=== PATIENT | female | born 1935 | race Caucasian/White ===

== ENCOUNTER 2025-02-07 11:30 | Emergency (ER) | payer MEDICARE, OTHER, SELFPAY ==
--- OUTSIDE RECORDS SUMMARY | 2025-02-02 02:30 | XMS_ITS ---
Author Organization [facility] Address [address] [place] [id number] Care Team Providers Care Mold Clamper Name Role Phone DR. FLORIDA DANIELLE Primary Care Provider Lety Rey Unavailable [phone] REASON FOR VISIT LV, new pt Medications Medication SIG (Take, Route, Frequency, Duration) Notes Start Date End Date Status traMADol HCl 50 MG Tablet 1 tablet as ne eded Orally twice a day 01/30/2025 Active Encounters Encounter Location Date Provider Diagnosis [address] [address] 02/02/2025 FLORIDA DANIELLE Plan Of Treatment Next Appt Details Provider Name:FLORIDA DANIELLE, 02/07/2025 10:38:00 PM, [address], [address], Provider Name:Lety Rey , 02/09/2025 09:45:00 AM, [address] [place] [address], [id number], History and Physical Notes * HPI (History of Present Illness) Category Sub-Category Detail Notes Category Not es Transition of Care She is in bed, napping. No chest pain or shortness of breath. No edema on exam. Blood pressure is 124/68. Progress Notes * Charlene WALTONDOB:1935 (89 yo F)Acc No.[id number]:02/02/2025 Progress Notes Patient: Charlene Oviedo Provider: Stan Danielle DO :1935 A ge:89 Y S ex:Female Date:02/02/2025 Address:[address] [place], [place] [id number] Subjective: * Chief Complaints: * L V, new pt * HPI: T ransition of Care: She is in bed, napping. No chest pain or shortness of breath. No edema on exam. Blood pressure is 124/68. * Medications: T akingtraMADol HCl 50 MG Tablet 1 tablet as needed Orally twice a day Taking traMADol HCl 50 MG Tablet 1 tablet as needed Orally twice a day * Electronic signature of DR. FLORIDA DANIELLE D.O. on 02/07/2025 at 01:49 PM SEX THERAPIST Sign off status: Pending * Provider: Stan Danielle DO Date: 04/05/2024 Generated for Ellen mills/Nikole/Hammad on: 04/10/2024 01:49 PM SEX THERAPIST
--- NOTE | ~2025-02-07 | CT_ITS ---
EXAMINATION: CT brain wo con DATE: 02/07/2025 14:03 INDICATION: Possible seizure TECHNIQUE: Computed tomography (CT) of the head was performed without intravenous contrast. The dose-length product was 832.33 mGy-cm. COMPARISON: None FINDINGS: Exam limited by moderate amount of motion artifact. No gross intracranial mass effect or hemorrhage. No large acute ischemic event. Diffuse ventriculomegaly and chronic microvascular ischemic appearing white matter changes. Calvarial structures appear intact. IMPRESSION: 1. No large acute ischemic event, mass effect or bleed. 2. Chronic ischemic appearing changes with ventriculomegaly; query if patient has presentation suggestive of NPH. 3. For new onset or refractory seizure disorder, correlation with follow-up brain MRI recommended for optimal sensitivity. Reviewed, dictated and finalized at location A. LING ASSISTANT IMPRESSION: 1. No large acute ischemic event, mass effect or bleed. 2. Chronic ischemic appearing changes with ventriculomegaly; query if patient h as presentation suggestive of NPH. 3. For new onset or refractory seizure disorder, correlation with follow-up bra in MRI recommended for optimal sensitivity.
[2025-02-07 11:33] VITALS: BP 127/50; PULSE 63; RESP 18; TEMP 36.8; O2SAT 95
--- NOTE | 2025-02-07 13:35 | ECG_ITS ---
Test Date: 2025-02-07 13:48:36 Measurements Intervals [place] Rate: 73 P: 77 UT: 150 QRS: 63 QRSD: 74 T: 77 QT: 394 QTc: 437 Interpretive Statements SINUS RHYTHM WITH OCCASIONAL VENTRICULAR PREMATURE COMPLEXES BASELINE ARTIFACT- I, II, AVR, AVL, V1 BORDERLINE ECG No previous ECG available for comparison Electronically Signed On 02-07-2025 14:00:40 [place] by Surya Terrell D.O.
--- NOTE | 2025-02-07 13:39 | ED_ITS ---
HPI - General Adult General Chief complaint: Unspecified <Madelyn Talley APRN - Last Filed: 02/07/25 13:40> Stated complaint: SHAKING EPISODE <Madelyn Talley APRN - Last Filed: 02/07/25 13:40> Time Seen by Provider: 02/07/25 13:39 <Madelyn Talley APRN - Last Filed: 02/07/25 13:40> Focused HPI: Patient is an 89-year-old female who presents to the ER with concern for seizure activity. She is unable to provide any medical history at time of examination. Per EMS, patient is A&O times 0 at baseline. She denies any pain at time of examination. GENERAL: Well-appearing, well-nourished, and in no acute distress. HEAD: Normocephalic, atraumatic. CHEST: Clear to auscultation. ?No respiratory distress. HEART: Regular rate and rhythm.? NEURO: ?Alert and oriented x 0. Moves all extremities. Patient screened in triage and initial orders placed.? ?Additional care and disposition to be based upon?diagnostic testing and treatment. 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 Patient has been staying at [facility]. Family states that they did not want the patient to have a shunt placed. Patient is a DNI DNR. They do confirm that patient is at her normal baseline. <Lizandro Bustamante MD - Last Filed: 02/07/25 18:25> Related Data Allergies/adverse reactions: Allergies Allergy/AdvReac Type Severity Reaction Status Date / Time No Known Allergies Allergy Verified 02/07/25 11:31 <Madelyn Talley APRN - Last Filed: 02/07/25 13:40> Review of Systems 2 Review of Systems: All systems reviewed & are unremarkable except as noted in HPI and below <Lizandro Bustamante MD - Last Filed: 02/07/25 18:25> Exam 2 Narrative: APPEARANCE: No distress HEAD: normocephalic, atraumatic. EYES: PERRLA/EOMI, conjunctivae clear. NOSE: Normal no drainage EARS:TMS clear with good light reflex. THROAT: Pharynx clear, no exudate. NECK: Supple. No adenopathy, no masses. RESPIRATORY: Airway patent, respirations nonlabored. Clear to auscultation bilaterally, no rales, rhonchi, wheezing. CARDIOVASCULAR: Regular rate and rhythm without murmurs rubs or gallops. ABDOMINAL: Soft, nontender, nondistended, normal bowel sounds MUSCULOSKELETAL: Moves all extremities. Strength/ROM intact, No edema, No calf tenderness. NEURO: Alert. Cranial nerves II through XII intact. Good gait. Good coordination SKIN: Warm, dry. Normal Color <Lizandro Bustamante MD - Last Filed: 02/07/25 18:25> Course Vital Signs Vital signs: Vital Signs Temperature 98.3 F 02/07/25 11:33 Pulse Rate 63 02/07/25 11:33 Respiratory Rate 18 02/07/25 11:33 Blood Pressure 127/50 L 02/07/25 11:33 Pulse Oximetry 95 02/07/25 11:33 Oxygen Delivery Room Air 02/07/25 11:33 Temperature 98.3 F 02/07/25 11:33 Pulse Rate 65 02/07/25 17:31 Respiratory Rate 17 02/07/25 17:31 Blood Pressure 122/57 L 02/07/25 17:31 Pulse Oximetry 98 02/07/25 17:31 Oxygen Delivery Room Air 02/07/25 15:55 <Madelyn Talley APRN - Last Filed: 02/07/25 13:40> Vital Signs Temperature 98.3 F 02/07/25 11:33 Pulse Rate 63 02/07/25 11:33 Respiratory Rate 18 02/07/25 11:33 Blood Pressure 127/50 L 02/07/25 11:33 Pulse Oximetry 95 02/07/25 11:33 Oxygen Delivery Room Air 02/07/25 11:33 Temperature 98.3 F 02/07/25 11:33 Pulse Rate 65 02/07/25 17:31 Respiratory Rate 17 02/07/25 17:31 Blood Pressure 122/57 L 02/07/25 17:31 Pulse Oximetry 98 02/07/25 17:31 Oxygen Delivery Room Air 02/07/25 15:55 <Lizandro Bustamante MD - Last Filed: 02/07/25 18:25> [facility] Narrative Medical decision making narrative: 89-year-old female presents emergency department for evaluation for possible seizure-like activity that was very short lasting. Patient is back to her normal baseline at this time. Patient was thought to have seizures previously due to normal pressure hydrocephalus. Patient is currently afebrile with no leukocytosis and a stable hemoglobin. Patient is INR of 1.0. No acute abnormalities on her CMP UA does show evidence of infection. Patient was treated with Rocephin in the emergency department patient was discharged home with Keflex. I did have a lengthy discussion regarding potential treatment for this patient and family does not want to pursue transfer to [facility] regarding potential shunt placement. They do prefer to have outpatient follow- up at [facility]. <Lizandro Bustamante MD - Last Filed: 02/07/25 18:25> Differential Diagnosis Differential Diagnosis: Normal pressure hydrocephalus,, seizure, UTI, subdural hematoma, subarachnoid hemorrhage <Lizandro Bustamante MD - Last Filed: 02/07/25 18:25> Lab Data [facility] Lab Attestation statement: I personally reviewed the patient's lab results. <Lizandro Bustamante MD - Last Filed: 02/07/25 18:25> Result diagrams: 02/07/25 13:47 02/07/25 13:47 <Madelyn Talley APRN - Last Filed: 02/07/25 13:40> Labs: Lab Results 02/07/25 02/07/25 02/07/25 Range/Units 13:47 13:47 15:42 WBC 6.7 (4.5-10.0) K/mm3 RBC 4.00 L (4.2-5.4) M/mm3 Hgb 12.3 (12.0-15.0) g/dL Hct 38.2 (37.0-47.0) % MCV 95.5 (80-100) fl MCH 30.8 (26-34) pg MCHC 32.2 (32-36) g/dl RDW 11.9 (11.5-14.5) % Plt Count 504 H (150-375) k/mm3 MPV 8.5 (7.4-10.4) fl Immature Gran % (Auto) 0.6 H (0-0.5) % Neut % (Auto) 80.1 H (45.5-73.1) % Lymph % (Auto) 8.9 L (18.3-44.2) % [place] % (Auto) 9.0 H (2.6-8.5) % Eos % (Auto) 0.5 (0-4.4) % Baso % (Auto) 0.9 (0.2-1.2) % Lymph # (Auto) 0.59 L (0.9-3.2) K/mm3 [place] # (Auto) 0.6 (0.1-0.6) K/mm3 Eos # (Auto) 0.0 (0-0.3) K/mm3 Baso # (Auto) 0.1 (0.0-0.1) K/mm3 Abs Immat Gran (auto) 0.04 H (0.00-0.031) K/mm3 Absolute Neuts (auto) 5.3 (1.3-6.7) K/mm3 Absolute Nucleated RBC 0.000 (0.0-0.012) K/mm3 Nucleated RBC % 0.0 (0.0-0.2) % PT 13.0 (11.1-14.7) Seconds INR 1.0 APTT 28.8 (22.3-36.8) Seconds Sodium 132 L (137-145) mmol/L Potassium 4.2 (3.4-5.0) mmol/L Chloride 98 (98-107) mmol/L Carbon Dioxide 30 (22-30) mmol/L Anion Gap 4 (4-12) mmol/L BUN 19 H (7-17) mg/dL Creatinine 0.81 (0.7-1.0) mg/dL Estim Creat Clear Calc Not Reportable Estimated GFR > 60 (59 - ) Glucose 114 H (65-110) mg/dL Lactic Acid 1.0 (0.7-2.0) mmol/L Calcium 9.2 (8.4-10.2) mg/dL Magnesium 1.7 Cancelled (1.6-2.3) mg/dL Total Bilirubin 0.4 (0.2-1.3) mg/dL AST 35 (14-36) U/L ALT 40 H (6-35) U/L Alkaline Phosphatase 61 (38-126) U/L Total Creatine Kinase 27 L (30-135) U/L Total Protein 6.7 (6.3-8.2) g/dL Albumin 3.6 (3.5-5.1) g/dL Urine Color (Yellow) Urine Appearance (Clear) Urine pH (5.0-9.0) Ur Specific [place] (1.001-1.035) Urine Protein (Negative) mg/dL Urine Glucose (UA) (Negative) mg/dL Urine Ketones (Negative) mg/dL Ur Blood (Man) (Negative) Urine Nitrate (Negative) Urine Bilirubin (Negative) Urine Urobilinogen (<2.0) mg/dL Leukocyte Esterase Rfl (Negative) PADMAJA/UL Urine RBC (0-2) /hpf Urine WBC (0-3) /hpf Ur Squamous Epith Cells (Few) /hpf Urine Bacteria /hpf Urine Casts 12/17/ Range/Units 16:27 WBC (4.5-10.0) K/mm3 RBC (4.2-5.4) M/mm3 Hgb (12.0-15.0) g/dL Hct (37.0-47.0) % MCV (80-100) fl MCH (26-34) pg MCHC (32-36) g/dl RDW (11.5-14.5) % Plt Count (150-375) k/mm3 MPV (7.4-10.4) fl Immature Gran % (Auto) (0-0.5) % Neut % (Auto) (45.5-73.1) % Lymph % (Auto) (18.3-44.2) % [place] % (Auto) (2.6-8.5) % Eos % (Auto) (0-4.4) % Baso % (Auto) (0.2-1.2) % Lymph # (Auto) (0.9-3.2) K/mm3 [place] # (Auto) (0.1-0.6) K/mm3 Eos # (Auto) (0-0.3) K/mm3 Baso # (Auto) (0.0-0.1) K/mm3 Abs Immat Gran (auto) (0.00-0.031) K/mm3 Absolute Neuts (auto) (1.3-6.7) K/mm3 Absolute Nucleated RBC (0.0-0.012) K/mm3 Nucleated RBC % (0.0-0.2) % PT (11.1-14.7) Seconds INR APTT (22.3-36.8) Seconds Sodium (137-145) mmol/L Potassium (3.4-5.0) mmol/L Chloride (98-107) mmol/L Carbon Dioxide (22-30) mmol/L Anion Gap (4-12) mmol/L BUN (7-17) mg/dL Creatinine (0.7-1.0) mg/dL Estim Creat Clear Calc Estimated GFR (59 - ) Glucose (65-110) mg/dL Lactic Acid (0.7-2.0) mmol/L Calcium (8.4-10.2) mg/dL Magnesium (1.6-2.3) mg/dL Total Bilirubin (0.2-1.3) mg/dL AST (14-36) U/L ALT (6-35) U/L Alkaline Phosphatase (38-126) U/L Total Creatine Kinase (30-135) U/L Total Protein (6.3-8.2) g/dL Albumin (3.5-5.1) g/dL Urine Color Yellow (Yellow) Urine Appearance Turbid H (Clear) Urine pH 5.5 (5.0-9.0) Ur Specific [place] 1.021 (1.001-1.035) Urine Protein 1+ H (Negative) mg/dL Urine Glucose (UA) Negative (Negative) mg/dL Urine Ketones Trace H (Negative) mg/dL Ur Blood (Man) Non-hemolyzed trace H (Negative) Urine Nitrate Positive H (Negative) Urine Bilirubin Negative (Negative) Urine Urobilinogen 1.0 (<2.0) mg/dL Leukocyte Esterase Rfl 3+ H (Negative) PADMAJA/UL Urine RBC 0-2 (0-2) /hpf Urine WBC >100 H (0-3) /hpf Ur Squamous Epith Cells None seen (Few) /hpf Urine Bacteria 4+ H /hpf Urine Casts 3-5 <Madelyn Talley, RHIT - Last Filed: 02/07/25 13:40> Lab Results 02/07/25 02/07/25 02/07/25 Range/Units 13:47 13:47 15:42 WBC 6.7 (4.5-10.0) K/mm3 RBC 4.00 L (4.2-5.4) M/mm3 Hgb 12.3 (12.0-15.0) g/dL Hct 38.2 (37.0-47.0) % MCV 95.5 (80-100) fl MCH 30.8 (26-34) pg MCHC 32.2 (32-36) g/dl RDW 11.9 (11.5-14.5) % Plt Count 504 H (150-375) k/mm3 MPV 8.5 (7.4-10.4) fl Immature Gran % (Auto) 0.6 H (0-0.5) % Neut % (Auto) 80.1 H (45.5-73.1) % Lymph % (Auto) 8.9 L (18.3-44.2) % [place] % (Auto) 9.0 H (2.6-8.5) % Eos % (Auto) 0.5 (0-4.4) % Baso % (Auto) 0.9 (0.2-1.2) % Lymph # (Auto) 0.59 L (0.9-3.2) K/mm3 [place] # (Auto) 0.6 (0.1-0.6) K/mm3 Eos # (Auto) 0.0 (0-0.3) K/mm3 Baso # (Auto) 0.1 (0.0-0.1) K/mm3 Abs Immat Gran (auto) 0.04 H (0.00-0.031) K/mm3 Absolute Neuts (auto) 5.3 (1.3-6.7) K/mm3 Absolute Nucleated RBC 0.000 (0.0-0.012) K/mm3 Nucleated RBC % 0.0 (0.0-0.2) % PT 13.0 (11.1-14.7) Seconds INR 1.0 APTT 28.8 (22.3-36.8) Seconds Sodium 132 L (137-145) mmol/L Potassium 4.2 (3.4-5.0) mmol/L Chloride 98 (98-107) mmol/L Carbon Dioxide 30 (22-30) mmol/L Anion Gap 4 (4-12) mmol/L BUN 19 H (7-17) mg/dL Creatinine 0.81 (0.7-1.0) mg/dL Estim Creat Clear Calc Not Reportable Estimated GFR > 60 (59 - ) Glucose 114 H (65-110) mg/dL Lactic Acid 1.0 (0.7-2.0) mmol/L Calcium 9.2 (8.4-10.2) mg/dL Magnesium 1.7 Cancelled (1.6-2.3) mg/dL Total Bilirubin 0.4 (0.2-1.3) mg/dL AST 35 (14-36) U/L ALT 40 H (6-35) U/L Alkaline Phosphatase 61 (38-126) U/L Total Creatine Kinase 27 L (30-135) U/L Total Protein 6.7 (6.3-8.2) g/dL Albumin 3.6 (3.5-5.1) g/dL Urine Color (Yellow) Urine Appearance (Clear) Urine pH (5.0-9.0) Ur Specific [place] (1.001-1.035) Urine Protein (Negative) mg/dL Urine Glucose (UA) (Negative) mg/dL Urine Ketones (Negative) mg/dL Ur Blood (Man) (Negative) Urine Nitrate (Negative) Urine Bilirubin (Negative) Urine Urobilinogen (<2.0) mg/dL Leukocyte Esterase Rfl (Negative) PADMAJA/UL Urine RBC (0-2) /hpf Urine WBC (0-3) /hpf Ur Squamous Epith Cells (Few) /hpf Urine Bacteria /hpf Urine Casts /17/ Range/Units 16:27 WBC (4.5-10.0) K/mm3 RBC (4.2-5.4) M/mm3 Hgb (12.0-15.0) g/dL Hct (37.0-47.0) % MCV (80-100) fl MCH (26-34) pg MCHC (32-36) g/dl RDW (11.5-14.5) % Plt Count (150-375) k/mm3 MPV (7.4-10.4) fl Immature Gran % (Auto) (0-0.5) % Neut % (Auto) (45.5-73.1) % Lymph % (Auto) (18.3-44.2) % [place] % (Auto) (2.6-8.5) % Eos % (Auto) (0-4.4) % Baso % (Auto) (0.2-1.2) % Lymph # (Auto) (0.9-3.2) K/mm3 [place] # (Auto) (0.1-0.6) K/mm3 Eos # (Auto) (0-0.3) K/mm3 Baso # (Auto) (0.0-0.1) K/mm3 Abs Immat Gran (auto) (0.00-0.031) K/mm3 Absolute Neuts (auto) (1.3-6.7) K/mm3 Absolute Nucleated RBC (0.0-0.012) K/mm3 Nucleated RBC % (0.0-0.2) % PT (11.1-14.7) Seconds INR APTT (22.3-36.8) Seconds Sodium (137-145) mmol/L Potassium (3.4-5.0) mmol/L Chloride (98-107) mmol/L Carbon Dioxide (22-30) mmol/L Anion Gap (4-12) mmol/L BUN (7-17) mg/dL Creatinine (0.7-1.0) mg/dL Estim Creat Clear Calc Estimated GFR (59 - ) Glucose (65-110) mg/dL Lactic Acid (0.7-2.0) mmol/L Calcium (8.4-10.2) mg/dL Magnesium (1.6-2.3) mg/dL Total Bilirubin (0.2-1.3) mg/dL AST (14-36) U/L ALT (6-35) U/L Alkaline Phosphatase (38-126) U/L Total Creatine Kinase (30-135) U/L Total Protein (6.3-8.2) g/dL Albumin (3.5-5.1) g/dL Urine Color Yellow (Yellow) Urine Appearance Turbid H (Clear) Urine pH 5.5 (5.0-9.0) Ur Specific [place] 1.021 (1.001-1.035) Urine Protein 1+ H (Negative) mg/dL Urine Glucose (UA) Negative (Negative) mg/dL Urine Ketones Trace H (Negative) mg/dL Ur Blood (Man) Non-hemolyzed trace H (Negative) Urine Nitrate Positive H (Negative) Urine Bilirubin Negative (Negative) Urine Urobilinogen 1.0 (<2.0) mg/dL Leukocyte Esterase Rfl 3+ H (Negative) PADMAJA/UL Urine RBC 0-2 (0-2) /hpf Urine WBC >100 H (0-3) /hpf Ur Squamous Epith Cells None seen (Few) /hpf Urine Bacteria 4+ H /hpf Urine Casts 3-5 <Lizandro Bustamante MD - Last Filed: 02/07/25 18:25> Imaging Data Radiologist's impression: ITS Impressions Head CT 02/07/25 14:08 IMPRESSION: 1. No large acute ischemic event, mass effect or bleed. 2. Chronic ischemic appearing changes with ventriculomegaly; query if patient has presentation suggestive of NPH. 3. For new onset or refractory seizure disorder, correlation with follow-up brain MRI recommended for optimal sensitivity. <Madelyn Talley APRN - Last Filed: 02/07/25 13:40> ITS Impressions Head CT 02/07/25 14:08 IMPRESSION: 1. No large acute ischemic event, mass effect or bleed. 2. Chronic ischemic appearing changes with ventriculomegaly; query if patient has presentation suggestive of NPH. 3. For new onset or refractory seizure disorder, correlation with follow-up brain MRI recommended for optimal sensitivity. <Lizandro Bustamante MD - Last Filed: 02/07/25 18:25> Discharge Plan Discharge Clinical Impression: Urinary tract infection <Madelyn Talley APRN - Last Filed: 02/07/25 13:40> Patient Disposition: [facility] Retirement/Asst Living <Madelyn Talley APRN - Last Filed: 02/07/25 13:40> Condition: Stable <Madelyn Talley APRN - Last Filed: 02/07/25 13:40> Instructions: Antibiotic Form, Urinary Tract Infection in Older Adults (ED) <Madelyn Talley APRN - Last Filed: 02/07/25 13:40> Additional Instructions: Have close follow-up with your physicians as outpatient. Antibiotics as directed for the urinary tract infection. If you have any worsening symptoms then please call or return to the emergency department. <Madelyn Talley APRN - Last Filed: 02/07/25 13:40> Patient Language: Upper Sorbian <Madelyn Talley APRN - Last Filed: 02/07/25 13:40> Prescriptions: New cephalexin 500 mg capsule 500 mg PO Q8H 7 Days Qty: 21 0RF <Madelyn Talley APRN - Last Filed: 02/07/25 13:40> Follow-up/Referrals: Jerald,Sergio Baird MD [Primary Care Provider] <Madelyn Talley APRN - Last Filed: 02/07/25 13:40>
--- OUTSIDE RECORDS SUMMARY | 2025-02-07 13:50 | XMS_ITS | Encounter Summary ---
Author Organization [facility] Healthcare Address [address] [place] [address] Care Team Providers Care Cosmetologist Name Role Phone Sergio Marques MD Primary Care Provider Consuelo Oh RN Unavailable [phone] Encounter Details Date Type Department Care Team (Late st Contact Info) Description 08/18/2019 Telephone [facility] [address] [place] [address] Branden Jamison, RT Social History Tobacco Use Types Packs/Day Years Used Date Smoking Tobacco: Never Smokeless Tobacco: Never Alcohol Use Standard Drinks/Week Comments No 0 (1 standard drink = 0.6 oz pur e alcohol) PHQ-2 Answer Date Recorded PHQ-2 Total Score (If total score is 3 or more points, staff should administer the PHQ-9) 0 06/19/2019 Comments No Sex and Gender Information Value Date Recorded Sex Assigned at Not on file 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 As a result, this patient falls under our standard 'ring surveillance' screening protocol to ensure no transmission has occurred. Please contact Franca Mendoza [facility], [facility] [place] for additional information. Patient Discharged 11/0711/07/2024 11/07/2024 11/08/2024 1:22 PM CDT documented as of this encounter Care Teams Cosmetologist Relationship Specialty Start Date End Date Sergio Marques MD PCP - General 05/22/16 Consuelo Oh, RN [address] [place] [address] [place] [address] Bar Tacker 11/06/21 12/04/21 documented as of this encounter
--- OUTSIDE RECORDS SUMMARY | 2025-02-07 13:50 | XMS_ITS | Encounter Summary ---
Author Organization [facility] Address [address] [place] [address] Phone Care Team Providers Care Plate And Weld Inspector Name Role Phone Sergio Marques MD Primary Care Provider Consuelo Oh RN Unavailable [phone] Encounter Details Date Type Department Care Team (Late st Contact Info) Description 05/26/2017 Orders Only [facility] ProviderLaurel MD [address] [place] [id number] Social History Tobacco Use Types Packs/Day Years Used Date Smoking Tobacco: Never Alcohol Use Standard Drinks/Week Comments No 0 (1 standard drink = 0.6 oz pur e alcohol) Comments Unknown Sex and Gender Information Value Date Recorded Sex Assigned at Not on file 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 Historical Provider LAB BLOOD ORDERABLES Julianne l Result documented in this encounter Visit Diagnoses Not on filedocumented [...] has occurred. Please contact Franca Mendoza MPH, [facility] Drop Wire Operator for additional information. Patient Discharged 11/0711/07/2024 11/07/2024 11/08/2024 1:22 PM CDT documented as of this encounter Care Teams Plate And Weld Inspector Relationship Specialty Start Date End Date Sergio Marques MD PCP - General 05/22/16 Consuelo hO RN [address] [place] [address] [place] [address] Wood Piler 11/06/21 12/04/21 documented as of this encounter
--- OUTSIDE RECORDS SUMMARY | 2025-02-07 13:50 | XMS_ITS | Patient Health Record ---
Author Organization [facility] Address [address] [place] [phone] Care Team Providers Care Fur Mixer Name Role Phone DR. FLORIDA LANGSTON Primary Care Provider Lety Rey Unavailable [phone] Allergies Allergen (clinical drug ingredient) Drug/Non Drug Allergy documented on EMR Reaction Allergy Type Onset Date Status Wasp Venom Unknown Drug Allergy Active Reason For Referral No Information Medications Medication SIG (Take, Route, Frequency, Duration) Notes Start Date End Date Status Levothyroxine Sodium 75 MCG Tablet 1 tablet in the morning on an empty stomach Orally Once a day Active PreserVision AREDS - Capsule 4,296 mcg-226 mg-90 mg Orally once a day Active Clopidogrel Bisulfate 75 MG Tablet 1 tablet Orally Once a day Active Donepezil HCl 10 MG Tablet 1 tablet at b edtime Orally Once a day Active traMADol HCl 50 MG Tablet 1 tablet as needed Orally every 6 hours As needed 01/30/2025 Active QUEtiapine Fumarate 25 MG Tablet 1 tablet at bedtime Orally Once a day Active Super B/C - Capsule as directed Orally o nce a day Active Tubersol 5 UNIT/0.1ML Solution 5 unit Intradermal once a day Active Atorvastatin Calcium 40 MG Tablet 1 tablet Orally Once a day Active Cetirizine HCl 10 MG Tablet 1 tablet Ora lly Once a day Active Vitamin D3 25 MCG (1000 UT) Tablet 1 tablet Orally Once a day Active amLODIPine Besylate 5 MG Tablet 1 tablet Orally Once a day Active Aspirin 325 MG Tablet 1 tablet Orally On ce a day Active Social History Tobacco Use: Social History Observation Description Date Details (start date - stop date) Never Smoker NA - NA Social History Drug/Alcohol: Social Info Question Answer Notes Drugs Have you used drugs other than those for medical reasons in the past 12 months? No AUDIT-C (Standard) Did you have a drink containing alcohol in the past year? No Points 0 Interpretation Negative Tobacco Use: Social Info Question Answer Notes Tobacco Control (Standard) Tobacco use: Nonsmoker Problems Problem Type SNOMED Code ICD Code Onset Dates Problem Status W/U Status Risk Notes Problem Hypothyroidism (68285326) Hypothyroidism, unspecified (E03.9) Active confirmed Problem Vitamin D deficiency (55803253) Vitamin D deficiency, unspecified (E55.9) Active confirmed Problem Vitamin deficiency (25965129) Vitamin deficiency, unspecified (E56.9) Active confirmed Problem Hyperlipidemia (64229851) Hyperlipidemia, unspecified (E78.5) Active confirmed Problem Essential hypertension (86031265) Essential (primary) hypertension (I10) Active confirmed Problem Infarction - precerebral (795565653) 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 Problem Dementia in other diseases classified elsewhere, mild, with mood disturbance (F02.A3) Active confirmed Vital Signs Heart Rate 82 /min 02/01/2025 Temperature 98.1 degrees Fahrenheit 02/01/2025 Respiratory Rate 16 /min 02/01/2025 Oximetry 97 % 02/01/2025 Blood pressure diastolic 64 mm Hg 02/01/2025 Blood pressure systolic 116 mm Hg 02/01/2025 Encounters Encounter Location Date Provider Diagnosis [address] [address] 02/02/[address] [address] 02/07/2025 Lety Candido [address] [address] 02/01/2025 Lety Rey Cerebral infarction due to embolism of unspecified precerebral artery I63.10 ; Physical deconditioning R53.81 ; Dementia in other diseases classified elsewhere, mild, with mood disturbance F02.A3 ; Essential (primary) hypertension I10 and Bilateral lower extremity edema R60.[address] [address] 01/29/[address] [address] 01/29/2025 [place] [address] [place] [id number] 01/30/2025 Lety Rey [facility] [address] [place] [id number] 02/01/2025 Lety Rey Assessments Encounter Date Diagnosis (ICD Code) Assessment Notes Treatment Notes Treatment Clinical Notes Section Notes 02/01/2025 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 Workup showed she had a right-sided stroke. Her left upper extremity is slightly weaker than her right upper extremity. Continue to monitor patient. _update with any changes. 02/01/2025 Physical deconditioning (ICD-10 - R53.81) Patient is working with PT/OT for strengthening and mobility. 02/01/2025 Dementia in other diseases classified elsewhere, mild, with mood disturbance (ICD-10 - F02.A3) Alert and oriented x1, pleasantly confused at baseline, but able to make needs known. No outburst or behaviors noted by staff. Managed well on current medications. Continue current treatment plan and monitoring. 02/01/2025 Essential (primary) hypertension (ICD-10 - I10) Blood pressure is stable. Managed well on current medications. Continue current treatment plan and monitoring. 02/01/2025 Bilateral lower extremity edema (ICD-10 - R60.0) Patient has 2+ edema noted to the bilateral lower extremities. Order given for compression stockings to be placed in the AM and removed in the PM. Educated patient to elevate legs as much as possible, but due to patient's mental status, unsure if she will remember. 02/01/2025 Other Patient with multiple chronic conditions, each requiring ongoing management and coordination of care. Reviewed and interpreted most recent laboratory results available, diagnostic studies, and prior specialist notes. Staff to continue to monitor and report any changes. Patient education provided and questions/concern s addressed. Close follow-up required; reassess in 2-4 weeks or sooner if condition worsens. Plan Of Treatment Next Appt Details Provider Name:FLORIDA LANGSTON, 02/07/2025 10:38:00 PM, [address] [place] [address], [id number], Provider Name:Lety Rey , 02/09/2025 09:45:00 AM, [address], [place], [address], Insurance Providers Payer Name Payer Address Payer Phone Subscriber Number Group Number Insured Name Patient Relationship to Insured Coverage Start Date Coverage End Date [employer] [address] [place] [phone] [id number] Charlene Fontana Self - patient is the insured [employer] [place] [address] [facility] [place] [id number] FontanaCharlene Self - patient is the insured Medical (General) History Medical History History ICD Code Cerebral infarction due to embolism of u nspecified precerebral artery I63.10 Dementia in other diseases classified el sewhere, mild, with mood disturbance F02.A3 Pain, unspecified R52 Vitamin deficiency, unspecified E56.9 Hyperlipidemia, unspecified E78.5 Essential (primary) hypertension I10 Hypothyroidism, unspecified E03.9 Vitamin D deficiency, unspecified E55.9 Fall, subsequent encounter W19.XXXD Surgical History Surgery Date(Month/Year) [place] FLUORO GUIDED LUMBAR PUNCTURE
--- OUTSIDE RECORDS SUMMARY | 2025-02-07 13:50 | XMS_ITS | Clinical Summary ---
Author Organization [facility] Address [address] [place] [address] Care Team Providers Care Cage Unloader Name Role Phone Florida Marques MD Primary Care Provider Allergies Active Allergy Reactions Criticality Noted Date Comments Venom-Wasp Medications cholecalcifero l, vitamin D3, (VITAMIN D3 ORAL) Take 1 capsule by mouth daily Active vitamin B complex vit C no.4 (SUPER B COMPLEX + C ORAL) Take 1 tablet by mouth daily Active vit A/vit C/vit E/zinc/copper (PRESERVISION AREDS ORAL) Take 1 capsule by mouth daily Active donepeziL (ARICEPT) 10 mg tablet Take 1 tablet (10 mg total) by mouth nightly For memory note higher dose 90 tablet 3 01/25/20 24 Active cetirizine (ZyrTEC) 10 mg tablet TAKE 1 TABLET BY MOUTH DAILY 90 tablet 1 07/01/19 25 Active QUEtiapine (SEROquel) 25 mg tablet TAKE 1 TABLET(25 MG) BY MOUTH EVERY NIGHT 100 tablet 1 08/20/19 25 Active levothyroxine (SYNTHROID) 75 mcg tablet TAKE 1 TABLET BY MOUTH DAILY 90 tablet 1 10/03/19 25 Active amLODIPine (NORVASC) 5 mg tablet Take 1 tablet (5 mg total) by mouth daily 30 tablet 11 01/26/20 25 026 Active aspirin 325 mg tabletIndicati ons:cerebral ischemia,Cereb ral Ischemia Take 1 tablet (325 mg total) by mouth daily 30 tablet 11 01/26/20 25 026 Active atorvastatin (LIPITOR) 40 mg tablet Take 1 tablet (40 mg total) by mouth daily 30 tablet 11 01/26/20 25 026 Active clopidogreL (PLAVIX) 75 mg tablet Take 1 tablet (75 mg total) by mouth daily 30 tablet 11 01/26/20 25 026 Active traMADoL (ULTRAM) 50 mg tablet Take 1 tablet (50 mg total) by mouth every 6 (six) hours as needed for pain 40 tablet 3 01/25/20 25 Active aspirin 81 mg enteric coated tablet Take 1 tablet (81 mg total) by mouth daily 025 Discontinued(St op Taking at Discharge) lisinopriL (PRINIVIL,ZEST RIL) 10 mg tablet TAKE 1 TABLET(10 MG) BY MOUTH DAILY 100 tablet 1 02/12/20 24 025 Discontinued(St op Taking at Discharge) traMADoL (ULTRAM) 50 mg tablet Take 1 tablet (50 mg total) by mouth every 6 (six) hours as needed for pain 40 tablet 3 12/20/19 25 025 Discontinued Active Problems Problem Noted Date Diagnosed Date 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 01/21/2025 Loss of consciousness 11/03/2024 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 11/03/2024 Dementia with behavioral disturbance 07/20/2023 Assessment & Plan (12/01/2024 5:31 PM CDT): Protein-calorie malnutrition, unspecified severi ty 07/20/2023 Alzheimer's disease with late onset (CODE) 07/03 Assessment & Plan (12/01/2024 5:31 PM CDT): Hyperlipidemia 06/08/2022 PVC (premature ventricular contraction) 12/12/19 22 Syncope and collapse 11/02/2021 Medicare annual wellness visit, subsequent 06/27 Hypertension 07/08/2013 Overview (05/27/2016): BENIGN HYPERTENSION 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 Overview (05/29/2016): IDIOPATHIC OSTEOPOROSIS Assessment & Plan (12/01/2024 5:31 PM CDT): Hypothyroidism 07/08/2013 Overview (05/29/2016): HYPOTHYROIDISM NOS Atopic rhinitis 05/19/2011 Overview (05/29/2016): ALLERGIC RHINITIS NOS Encounters Date Type Department Care Team Description 01/25/2025 7:48 AM BEHAVIORAL SPECIALIST - 01/25/2025 11:59 PM BEHAVIORAL SPECIALIST Hospital Encounter [facility] Emergency, Room R Discharge Disposition: Discharge to home or self care 01/22/2025 Orders Only [facility] Health Information Management [address] [place] [id number] Scanning, Provider 01/21/2025 7:36 AM BEHAVIORAL SPECIALIST - 01/25/2025 7:29 AM BEHAVIORAL SPECIALIST Hospital Encounter [facility] [address] [place] [address] Diogenes Sullivan MD Kheirkhahan, Nazanin, MD Hoelscher, John Arthur, MD Nikolic, Jelena, MD Cerebrovascular accident (CVA) due to embolism of precerebral artery (HCC) (Primary Dx); Traumatic rhabdomyolysis, initial encounter Discharge Disposition: Discharge to SNF 01/21/2025 7:20 AM BEHAVIORAL SPECIALIST - 01/21/2025 11:59 PM BEHAVIORAL SPECIALIST Hospital Encounter [facility] Emergency, Room R Discharge Disposition: Discharge to home or self care 01/12/2025 Telephone [facility] Primary Care at [address] [place] [phone] Florida Marques MD 12/25/2024 9:30 AM BEHAVIORAL SPECIALIST Office Visit [facility] [address] [address] [address] [place] [address] Zeeshan Crowell MD NPH (normal pressure hydrocephalus) [G91.2] (Primary Dx) 12/19/2024 Orders Only [facility] Primary Care at [address] [place] [phone] Florida Marques MD 12/19/2024 Telephone [facility] Primary Care at [address] [phone] Florida Marques MD 12/14/2024 Orders Only [facility] Primary Care at [address] [phone] Florida Marques MD 12/14/2024 Telephone [facility] Primary Care at [address] [phone] Florida Marques MD 12/13/2024 Telephone [facility] [address] [address] [address] [place] [address] Lianne Augustine 12/12/2024 Telephone [facility] Primary Care at [address] [phone] Florida Marques MD 12/01/2024 3:00 PM CDT Office Visit [facility] Primary Care at [address] [phone] Florida Marques MD Alzheimer's disease with late onset (CODE) (Primary Dx); BMI less than 19,adult; Dementia with behavioral disturbance (HCC); Idiopathic osteoporosis; Normal pressure hydrocephalus (HCC) 12/01/2024 Telephone [facility] Primary Care at [address] [phone] Florida Marques MD 12/01/2024 Orders Only [facility] Primary Care at [address] [phone] Florida Marques MD 11/27/2024 Telephone [facility] Primary Care at [address] [phone] Florida Marques MD Medical Question/Miscellaneous 11/10/2024 Results Follow-Up [facility] Primary Care at [address] [phone] Florida Marques MD Alzheimer s disease evaluation, CSF, Multiple sclerosis (MS) profile with reflex to oligoclonal bands, CSF/serum, FLUID MISC TO [place], Additional followed-up results: 3 from Last 3 Months Immunizations Immunization Administration Dates Next Due Hep B Vaccine 02/18/1998,09/18/1991,08/18/1991 Influenza, Unspecified 12/01/2024(Deferr ed: Patient Refused),08/03/2024(Deferred: Patient Refused),01/25/2024(Deferred: Patient Refused),11/23/2022(Deferred: Patient Refused),07/03/2022(Deferred: Patient Refused),04/22/2021(Deferred: Patient Refused),11/22/2018(Deferred: Patient Refused),06/13/2018(Deferred: Patient Refused) Pneumococcal Conjugate, Unspecified 11/11/2021(D eferred: Patient Refused) Td, adsorbed 05/02/1990 Surgical History Surgery Date Site/Laterality Comments [place] FLUORO GUIDED LUMBAR PUNCTURE 11/07/2024 Right Medical History Medical History Date Comments Hx Other Medical obgyn Hyperlipidemia Hyperlipidemia Atopic rhinitis allergic rhiniti s Hx Other Medical Dizziness Family History Medical History Relation Name Comments Liver cancer Father 2 Cancer -liver; Age: Lung cancer Mother 2 Cancer -lung; Age: 92 Other Mother 2 high blood pres sure; Relation Name Status Comments Father 1 Alive Father 2 Mother 1 Alive Mother 2 Social History Tobacco Use Types Packs/Day Years Used Date Smoking Tobacco: Never Smokeless Tobacco: Never Tobacco Cessation:Counseling Given: Not Answered Alcohol Use Standard Drinks/Week Comments No 0 (1 standard drink = 0.6 oz pur e alcohol) Social Connection and Isolation Panel Answer Date Recorded In a typical week, how many times do you talk on the phone with family, friends, or neighbors? More than three times a week 11/06/2021 How often do you get togethe r with friends or relatives? Three times a week 11/06/2021 How often do you attend chur ch or adventist services? More than 4 times per year 11/06/2021 Do you belong to any clubs o r organizations such as judaism groups, unions, fraternal or athletic groups, or school groups? Yes 11/06/2021 How often do you attend meet ings of the clubs or organizations you belong to? More than 4 times per year 11/06/2021 Are you , , di vorced, , never , or living with a partner? 11/06/2021 AUDIT-C Answer Date Recorded Q1: How often do you have a drink containing alcohol? Never 07/20/2023 Q2: How many drinks containi ng alcohol do you have on a typical day when you are drinking? Patient does not drink Frequency of Binge Drinking Not on file 06/23 Overall Financial Resource Strain (CARDIA) Answe r Date Recorded How hard is it for you to pa y for the very basics like food, housing, medical care, and heating? Not very hard 11/06/2021 PHQ-2 Answer Date Recorded PHQ-2 Total Score (If total score is 3 or more points, staff should administer the PHQ-9) 0 12/01/2024 PRAPARE - Transportation Answer Date Re corded In the past 12 months, has l ack of transportation kept you from medical appointments or from getting medications? No 10/23 In the past 12 months, has l ack of transportation kept you from meetings, work, or from getting things needed for daily living? No 11/06/2021 Housing Stability Vital Sign Answer Reji e Recorded In the last 12 months, was t here a time when you were not able to pay the mortgage or rent on time? No 11/06/2021 In the last 12 months, how many places have you lived? 1 11/06/2021 In the last 12 months, was t here a time when you did not have a steady place to sleep or slept in a snf (including now)? No 11/06/2021 Social Connection and Isolation Panel Answer Date Recorded In a typical week, how many times do you talk on the phone with family, friends, or neighbors? More than three times a week 01/22/2025 How often do you get togethe r with friends or relatives? More than three times a week 01/22/2025 How often do you attend chur ch or adventist services? More than 4 times per year 01/22/2025 Do you belong to any clubs o r organizations such as judaism groups, unions, fraternal or athletic groups, or school groups? Yes 01/22/2025 How often do you attend meet ings of the clubs or organizations you belong to? More than 4 times per year 01/22/2025 Are you , , di vorced, , never , or living with a partner? 01/22/2025 Overall Financial Resource Strain (CARDIA) Answe r Date Recorded How hard is it for you to pa y for the very basics like food, housing, medical care, and heating? Not very hard 01/22/2025 Hunger Vital Sign Answer Date Recorded Within the past 12 months, y ou worried that your food would run out before you got the money to buy more. Never true 01/23/20 25 Within the past 12 months, t he food you bought just didn't last and you didn't have money to get more. Never true 01/22/2025 PRAPARE - Transportation Answer Date Re corded In the past 12 months, has l ack of transportation kept you from medical appointments or from getting medications? No 02/2024 In the past 12 months, has l ack of transportation kept you from meetings, work, or from getting things needed for daily living? No 01/22/2025 Housing Stability Vital Sign Answer Reji e Recorded In the last 12 months, was t here a time when you were not able to pay the mortgage or rent on time? No 01/22/2025 In the past 12 months, how m any times have you moved where you were living? 0 01/22/2025 At any time in the past 12 m [facility], were you homeless or living in a snf (including now)? No 01/22/2025 [facility] Utilities Answer Date Recorded In the past 12 months has th e electric, gas, oil, or water company threatened to shut off services in your home? No 01/22/2025 Personal Safety Answer Date Recorded Have you ever been in or are you currently in a harmful physical or emotional relationship or is someone making you feel afraid or unsafe? Denies 01/21/2025 Comments No Sex and Gender Information Value Date Recorded Sex Assigned at Not on file Legal Sex Female 11:53 PM BEHAVIORAL SPECIALIST Gender Identity Not on file Sexual Orientation Not on file Obstetrics History Para Term AB IAB SAB Ectopic Multiple Livin g Live Births 3 3 3 Date Outcome GA Total Labor Labor/2nd/3rd Weight Sex Type Anes PTL Michelle A1 A5 Name Clin Term Term Term Last Filed Vital Signs Vital Sign Reading Time Taken Comments Blood Pressure 135/53 01/25/2025 7:24 AM BEHAVIORAL SPECIALIST Pulse 76 01/25/2025 7:24 AM BEHAVIORAL SPECIALIST Temperature 36.4 C (97.6 F) 01/25/2025 7:24 AM BEHAVIORAL SPECIALIST Respiratory Rate 18 01/25/2025 7:24 AM BEHAVIORAL SPECIALIST Oxygen Saturation 91% 01/25/2025 7:24 AM BEHAVIORAL SPECIALIST Inhaled Oxygen Concentration - - Weight 47.6 kg (104 lb 15 oz) 01/21/2025 1:34 PM BEHAVIORAL SPECIALIST Height 162.6 cm (5' 4.02) 01/21/2025 1:34 PM CS T Body Mass Index 18 01/21/2025 1:34 PM BEHAVIORAL SPECIALIST Plan of Treatment Health Maintenance Due Date Last Done Comments Zoster Vaccine (1 of 2) 1986 Osteoporosis Screening-Bone Density Scan 07/13/2018 07/13/2016 Colon Cancer Screening-Colonoscopy 12/26/2019 12/25/2014, 12/25/2014, 12/25/2014, Additional history exists Breast Cancer Screening-Mammogram 08/20/2020 08/21/2019, 06/13/2018, 06/07/2017, Additional history exists Influenza Vaccine (#1) 2024 Well Visit 65+ 08/03/2025 08/03/2024, 06/23, 07/03/2022, Additional history exists Covid-19 Vaccine ( season) 2025 11/22/2020, 10/25/2020 Postponed from 10/23/2024 (Patient declined, but will receive in the future) Depression Screening 12/01/2025 12/01/2024, 08/03/2024, 01/25/2024, Additional history exists Fall Risk Assessment 01/24/2026 01/24/2025, 12/01/2024, 08/03/2024, Additional history exists DTaP/Tdap/Td Vaccine (1 - Tdap) 09/30/2027 05/02/1990 Postponed from 05/03/1990 (Insurance / Financial) Hepatitis B Screening Completed 02/18/1998 , 09/18/1991, 08/18/1991 Colon Cancer Screening-CT Colonography Discontinued 12/25/2014, 12/25/2014, 12/25/2014, Additional history exists Colon Cancer Screening-DNA Stool Discontinued 12/25/2014, 12/25/2014, 12/25/2014, Additional history exists Colon Cancer Screening-FIT Discontinued 12/25, 12/25/2014, 12/25/2014, Additional history exists Colon Cancer Screening-Sigmoidoscopy Discontinued 12/25/2014, 12/25/2014, 12/25/2014, Additional history exists Pneumococcal vaccine 65+ Discontinued Procedures Procedure Name Priority Date/Time Associated Diagnosis Comments EGFR Routine 01/25/2025 2:29 AM BEHAVIORAL SPECIALIST BASIC METABOLIC PANEL Routine 01/25/2025 2:29 AM BEHAVIORAL SPECIALIST EGFR Routine 01/24/2025 2:24 AM BEHAVIORAL SPECIALIST BASIC METABOLIC PANEL Routine 01/24/2025 2:24 AM BEHAVIORAL SPECIALIST EGFR Routine 01/23/2025 2:25 AM BEHAVIORAL SPECIALIST BASIC METABOLIC PANEL Routine 01/23/2025 2:25 AM BEHAVIORAL SPECIALIST MRI BRAIN WO CONTRAST IP Routine 01/22/2025 12:31 PM BEHAVIORAL SPECIALIST US CAROTIDS DUPLEX BILATERAL IP Routine 01/22/2025 11:38 AM BEHAVIORAL SPECIALIST TRANSTHORACIC ECHO (TTE) COMPLETE W DOPPLER/CF WO CONTRAST W BUBBLE Routine 01/22/2025 10:20 AM BEHAVIORAL SPECIALIST ECG 12-LEAD Routine 01/22/2025 6:24 AM BEHAVIORAL SPECIALIST LIPID PANEL Routine 01/22/2025 2:33 AM BEHAVIORAL SPECIALIST HEMOGLOBIN A1C Routine 01/22/2025 2:33 AM BEHAVIORAL SPECIALIST SCAN - LABS 01/22/2025 TROPONIN T HIGH-SENSITIVITY 6-HOUR Timed 01/21/2025 2:10 PM BEHAVIORAL SPECIALIST TROPONIN T HIGH-SENSITIVITY 4-HR Timed 01/21/2025 11:56 AM BEHAVIORAL SPECIALIST TROPONIN T HIGH-SENSITIVITY 2-HOUR Timed 01/21/2025 11:00 AM BEHAVIORAL SPECIALIST SEPSIS LACTATE WITH REFLEX Timed 01/21/2025 11:00 AM BEHAVIORAL SPECIALIST URINALYSIS, MICROSCOPIC ONLY STAT 01/21/2025 10:13 AM BEHAVIORAL SPECIALIST URINALYSIS AND REFLEX TO MICROSCOPIC AND CULTURE STAT 01/21/2025 10:13 AM BEHAVIORAL SPECIALIST XR CHEST 1 VIEW ED 01/21/2025 8:[address] CERVICAL SPINE WO CONTRAST ED 01/21/2025 8:[address] HEAD WO CONTRAST ED 01/21/2025 8 :19 AM BEHAVIORAL SPECIALIST EGFR STAT 01/21/2025 7:50 AM BEHAVIORAL SPECIALIST DIFFERENTIAL AUTO STAT 01/21/2025 7:5 0 AM BEHAVIORAL SPECIALIST PROTIME-INR STAT 01/21/2025 7:50 AM BEHAVIORAL SPECIALIST CREATINE KINASE (CK), TOTAL STAT 01/21/2025 7:50 AM BEHAVIORAL SPECIALIST SEPSIS LACTATE WITH REFLEX STAT 01/21/2025 7:50 AM BEHAVIORAL SPECIALIST TROPONIN T HIGH-SENSITIVITY SERIES (BASELINE, 2HR, 4HR, 6HR) Routine 01/21/2025 7:50 AM BEHAVIORAL SPECIALIST PRO B-TYPE NATRIURETIC PEPTIDE STAT 01/21/2025 7:50 AM BEHAVIORAL SPECIALIST MAGNESIUM Routine 01/21/2025 7:50 AM BEHAVIORAL SPECIALIST APTT STAT 01/21/2025 7:50 AM BEHAVIORAL SPECIALIST COMPREHENSIVE METABOLIC PANEL STAT 01/21/2025 7:50 AM BEHAVIORAL SPECIALIST CBC WITH AUTO DIFFERENTIAL STAT 01/21/2025 7:50 AM BEHAVIORAL SPECIALIST ECG 12-LEAD STAT 01/21/2025 7:44 AM BEHAVIORAL SPECIALIST SCREENING MAMMOGRAM BILATERAL W CUONG Schedule Routine, Read Routine (OP Routine) 08/21/2019 9:30 AM CDT Screening mammogram, encounter for HM DEXA SCAN Routine 07/13/2016 COLONOSCOPY IMAGES 12/25/2014 from Last 3 Months or Most Recently Relevant to Health Maintenance Results * eGFR (01/25/2025 2:29 AM BEHAVIORAL SPECIALIST) eGFR 82 >=60 mL/min/1. 73 m2 Comment: Interpretive Data Reference Interval Normal >/= 90 mL/min/1.73m2 Mildly decreased* 60 - 89 mL/min/1.73m2 Mildly to moderately decreased 45 - 59 mL/min/1.73m2 Moderately to severely decreased 30 - 44 mL/min/1.73m2 Severely decreased 15 - 29 mL/min/1.73m2 Kidney Failure < 15 mL/min/1.73m2 *Relative to young adult level Estimated glomerular filtration rate is determined by the 2020 CKD-EPI equation recommended by the National Kidney Foundation (A Unifying Approach to GFR Estimation: Recommendations of the NKF-ASK Task Force on Reassessing the Inclusion of Race in Diagnosing Kidney Disease, JASN 2020). The CKD-EPI equation should not be used for patients with unstable renal function and has not been validated in children and those over 70. Current interpretive data was last reviewed 2020. Blood 01/25/2025 2:29 AM BEHAVIORAL SPECIALIST 01/25/2025 3:10 AM BEHAVIORAL SPECIALIST us Florida Marques MD LAB BLOOD ORDERABLES Fi nal Result JOSSE LOPEZ) 1 [facility] Department [place] [address] * Basic metabolic panel (01/25/2025 2:29 AM BEHAVIORAL SPECIALIST) [facility] Sodium 135 135 - 145 mmol/L Potassium, pl 4.1 3.3 - 4.9 mmol/L [facility] ([place]) Chloride 104 97 - 110 mmol/L [facility] ([place]) CO2 24 22 - 32 mmol/L [facility] ([place]) Anion gap 7 2 - 15 mmol/L [facility] ([place]) BUN 14 6 - 25 mg/dL [facility] ([place]) Creatinine 0.71 0.60 - 1.10 mg/dL [facility] ([place]) Glucose 94 70 - 199 mg/dL [facility] ([place]) Comment: Interpretive Data Fasting glucose >/= 126 mg/dl is diagnostic for diabetes. Fasting is defined as no caloric intake for at least 8 hours. Fasting glucose between 100 mg/dl to 125 mg/dl is diagnostic of prediabetes. In a patient with classic symptoms of hyperglycemia or hyperglycemic crisis, a random glucose >/= 200 mg/dl is diagnostic for diabetes. In the absence of unequivocal hyperglycemia, results should be confirmed by repeat testing. The classification and Diagnosis of Diabetes Diabetes Care 202; 46: S19-S40. Current interpretive data was last revised 2022. Calcium 8.5 8.5 - 10.3 mg/dL [facility] ([place]) Blood 01/25/2025 2:29 AM BEHAVIORAL SPECIALIST 01/25/2025 3:10 AM BEHAVIORAL SPECIALIST us Florida Marques MD LAB BLOOD ORDERABLES Fi nal Result [facility] PATTERSON ([place]) 1 [facility] Department [place] [address] * eGFR (01/24/2025 2:24 AM BEHAVIORAL SPECIALIST) [facility] eGFR 86 >=60 mL/min/1. 73 m2 Comment: Interpretive Data Reference Interval Normal >/= 90 mL/min/1.73m2 Mildly decreased* 60 - 89 mL/min/1.73m2 Mildly to moderately decreased 45 - 59 mL/min/1.73m2 Moderately to severely decreased 30 - 44 mL/min/1.73m2 Severely decreased 15 - 29 mL/min/1.73m2 Kidney Failure < 15 mL/min/1.73m2 *Relative to young adult level Estimated glomerular filtration rate is determined by the 2020 CKD-EPI equation recommended by the National Kidney Foundation (A Unifying Approach to GFR Estimation: Recommendations of the NKF-ASK Task Force on Reassessing the Inclusion of Race in Diagnosing Kidney Disease, JASN 2020). The CKD-EPI equation should not be used for patients with unstable renal function and has not been validated in children and those over 70. Current interpretive data was last reviewed 2020. Blood 01/24/2025 2:24 AM BEHAVIORAL SPECIALIST 01/24/2025 3:44 AM BEHAVIORAL SPECIALIST us Florida Marques MD LAB BLOOD ORDERABLES nal Result [facility] ([place]) 1 [facility] Department [place] [address] * (ABNORMAL) Basic metabolic panel (01/24/2025 2:24 AM BEHAVIORAL SPECIALIST) Sodium 136 135 - 145 mmol/L Potassium, pl 3.8 3.3 - 4.9 mmol/L [facility] ([place]) Chloride 105 97 - 110 mmol/L [facility] ([place]) CO2 21(L) 22 - 32 mmol/L [facility] ([place]) Anion gap 10 2 - 15 mmol/L [facility] ([place]) BUN 12 6 - 25 mg/dL [facility] ([place]) Creatinine 0.62 0.60 - 1.10 mg/dL [facility] ([place]) Glucose 95 70 - 199 mg/dL [facility] ([place]) Comment: Interpretive Data Fasting glucose >/= 126 mg/dl is diagnostic for diabetes. Fasting is defined as no caloric intake for at least 8 hours. Fasting glucose between 100 mg/dl to 125 mg/dl is diagnostic of prediabetes. In a patient with classic symptoms of hyperglycemia or hyperglycemic crisis, a random glucose >/= 200 mg/dl is diagnostic for diabetes. In the absence of unequivocal hyperglycemia, results should be confirmed by repeat testing. The classification and Diagnosis of Diabetes Diabetes Care 202; 46: S19-S40. Current interpretive data was last revised 2022. Calcium 8.2(L) 8.5 - 10.3 mg/dL [facility] ([place]) Blood 01/24/2025 2:24 AM BEHAVIORAL SPECIALIST 01/24/2025 3:44 AM BEHAVIORAL SPECIALIST Florida Marques MD LAB BLOOD ORDERABLES Fi nal Result Performing Organization Address City/[facility]/ZIP Co de Phone Number JOSSE PATTERSON ([place]) 1 [facility] [place] [address] * eGFR (01/23/2025 2:25 AM BEHAVIORAL SPECIALIST) eGFR 83 >=60 mL/min/1. 73 m2 Comment: Interpretive Data Reference Interval Normal >/= 90 mL/min/1.73m2 Mildly decreased* 60 - 89 mL/min/1.73m2 Mildly to moderately decreased 45 - 59 mL/min/1.73m2 Moderately to severely decreased 30 - 44 mL/min/1.73m2 Severely decreased 15 - 29 mL/min/1.73m2 Kidney Failure < 15 mL/min/1.73m2 *Relative to young adult level Estimated glomerular filtration rate is determined by the 2020 CKD-EPI equation recommended by the National Kidney Foundation (A Unifying Approach to GFR Estimation: Recommendations of the NKF-ASK Task Force on Reassessing the Inclusion of Race in Diagnosing Kidney Disease, JASN 2020). The CKD-EPI equation should not be used for patients with unstable renal function and has not been validated in children and those over 70. Current interpretive data was last reviewed 2020. Blood 01/23/2025 2:25 AM BEHAVIORAL SPECIALIST 01/23/2025 3:14 AM BEHAVIORAL SPECIALIST Florida Marques MD LAB BLOOD ORDERABLES Fi nal Result Performing Organization Address City/[facility]/ZIP Co de Phone Number FREDDIEJAIME PATTERSON ([place]) 1 [facility] Department [place] [address] * (ABNORMAL) Basic metabolic panel (01/23/2025 2:25 AM BEHAVIORAL SPECIALIST) Sodium 137 135 - 145 mmol/L Potassium, pl 3.7 3.3 - 4.9 mmol/L [facility] ([place]) Chloride 104 97 - 110 mmol/L [facility] ([place]) CO2 22 22 - 32 mmol/L [facility] ([place]) Anion gap 11 2 - 15 mmol/L [facility] ([place]) BUN 11 6 - 25 mg/dL [facility] ([place]) Creatinine 0.69 0.60 - 1.10 mg/dL [facility] ([place]) Glucose 96 70 - 199 mg/dL [facility] ([place]) Comment: Interpretive Data Fasting glucose >/= 126 mg/dl is diagnostic for diabetes. Fasting is defined as no caloric intake for at least 8 hours. Fasting glucose between 100 mg/dl to 125 mg/dl is diagnostic of prediabetes. In a patient with classic symptoms of hyperglycemia or hyperglycemic crisis, a random glucose >/= 200 mg/dl is diagnostic for diabetes. In the absence of unequivocal hyperglycemia, results should be confirmed by repeat testing. The classification and Diagnosis of Diabetes Diabetes Care 2021; 46: S19-S40. Current interpretive data was last revised 2022. Calcium 8.1(L) 8.5 - 10.3 mg/dL [facility] ([place]) Blood 01/23/2025 2:25 AM BEHAVIORAL SPECIALIST 01/23/2025 3:14 AM BEHAVIORAL SPECIALIST us [place] Marques MD LAB BLOOD ORDERABLES Fi nal Result [facility] ([place]) 1 [facility] Department [place] [address] * MRI Brain WO Contrast (01/22/2025 12:31 PM BEHAVIORAL SPECIALIST) Anatomical Region Laterality Modality Head and Neck N/A Magnetic Resonan ce 01/22/2025 1:00 PM BEHAVIORAL SPECIALIST Impressions 01/22/2025 1:00 PM BEHAVIORAL SPECIALIST Small acute focal cortical infarction of the right frontal lobe and anterior insular cortex. No other acute infarct. Stable diffuse ventricular prominence with asymmetric left greater than right enlargement. Overall, stable appearance of the configuration of the inferior frontal mild deviation to the left of falx, stable from multiple prior studies. Stable age-related microvascular white matter changes. Electronically signed by: Romy Wilcox M.D. Narrative 01/22/2025 1:00 PM BEHAVIORAL SPECIALIST EXAMINATION: MRI BRAIN WO CONTRAST HISTORY: Possible stroke. Possible stroke COMPARISON: Head CT from 01/21/2025. TECHNIQUE: Multiplanar, multisequence MR imaging of the brain including noncontrast T1, T2, FLAIR, and diffusion weighted imaging with ADC map. Images stored on PACS. FINDINGS: CEREBRUM: There is a focal area of loss of flores-white differentiation with cortical edema in the lateral right frontal lobe and anterior right insula in keeping with acute infarction seen on head CT. There is no additional or new cortical infarct. There is a persistent asymmetric size of the left compared to right lateral ventricle compared to 2021 and there is persistent slight leftward positioning of the frontal horns of the lateral ventricles, unchanged from multiple prior studies. There is no abnormality on blood sensitive gradient T2 weighted sequences to indicate hemosiderin or other chronic blood breakdown product. WHITE MATTER: Stable patchy areas of T2 and FLAIR hyperintensity evident throughout periventricular white matter. Unremarkable for patient's age. POSTERIOR FOSSA: The brainstem and cerebellum appear unremarkable. DIFFUSION IMAGING: No diffusion restriction identied to indicate a recent infarction. EXTRA-AXIAL SPACES: No abnormal extraaxial fluid collection is identified. No mass. BRAIN VOLUME: Within normal limits for age. PITUITARY: Unremarkable. VASCULATURE: No flow disturbance is identified. CALVARIUM: No acute findings. ORBITS: Postoperative changes of the gila river lenses bilaterally. SINUSES/MASTOIDS: Well-aerated with no fluid levels. No significant mucosal thickening. OTHER: No significant abnormality. Procedure Note Romy Wilcox MD - 01/22/2025 EXAMINATION: MRI BRAIN WO CONTRAST HISTORY: Possible stroke. Possible stroke COMPARISON: Head CT from 01/21/2025. TECHNIQUE: Multiplanar, multisequence MR imaging of the brain including noncontrast T1, T2, FLAIR, and diffusion weighted imaging with ADC map. Images stored on PACS. FINDINGS: CEREBRUM: There is a focal area of loss of flores-white differentiation with cortical edema in the lateral right frontal lobe and anterior right insula in keeping with acute infarction seen on head CT. There is no additional or new cortical infarct. There is a persistent asymmetric size of the left compared to right lateral ventricle compared to 202 and there is persistent slight leftward positioning of the frontal horns of the lateral ventricles, unchanged from multiple prior studies. There is no abnormality on blood sensitive gradient T2 weighted sequences to indicate hemosiderin or other chronic blood breakdown product. WHITE MATTER: Stable patchy areas of T2 and FLAIR hyperintensity evident throughout periventricular white matter. Unremarkable for patient's age. POSTERIOR FOSSA: The brainstem and cerebellum appear unremarkable. DIFFUSION IMAGING: No diffusion restriction identied to indicate a recent infarction. EXTRA-AXIAL SPACES: No abnormal extraaxial fluid collection is identified. No mass. BRAIN VOLUME: Within normal limits for age. PITUITARY: Unremarkable. VASCULATURE: No flow disturbance is identified. CALVARIUM: No acute findings. ORBITS: Postoperative changes of the [place] lenses bilaterally. SINUSES/MASTOIDS: Well-aerated with no fluid levels. No significant mucosal thickening. OTHER: No significant abnormality. 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 No other acute infarct. Stable diffuse ventricular prominence with asymmetric left greater than right enlargement. Overall, stable appearance of the configuration of the inferior frontal mild deviation to the left of falx, stable from multiple prior studies. Stable age-related microvascular white matter changes. Electronically signed by: Romy Wilcox M.D. Diogenes Sullivan MD [facility] MRI PROCEDURES Final Res ult * US Carotids Duplex Bilateral (01/22/2025 11:38 AM BEHAVIORAL SPECIALIST) Anatomical Region Laterality Modality Vascular Bilateral Ultrasound 01/23/2025 9:08 AM BEHAVIORAL SPECIALIST Impressions 01/23/2025 9:08 AM BEHAVIORAL SPECIALIST No evidence of hemodynamically significant carotid artery stenosis. Electronically signed by: Carmine Anderson M.D. Narrative 01/23/2025 9:08 AM BEHAVIORAL SPECIALIST EXAMINATION: CAROTID DOPPLER HISTORY: Other cerebral infarction (stroke) COMPARISON: None TECHNIQUE: Ultrasound examination was performed using real time, duplex, and color Doppler. FINDINGS: Right: There is no significant plaque seen in the proximal internal carotid artery. Peak systolic velocity is 114 cm/sec in the distal internal carotid artery. End-diastolic velocity is 16 cm/sec. The systolic ICA/CCA ratio is 1.8. Flow in the vertebral artery is antegrade. Left: There is no significant plaque seen in the proximal internal carotid artery. Peak systolic velocity is 84 cm/sec in the distal internal carotid artery. End-diastolic velocity is 11 cm/sec. The systolic ICA/CCA ratio is 1.4. Flow in the vertebral artery is antegrade. Procedure Note Carmine Anderson MD - 01/23/2025 EXAMINATION: CAROTID DOPPLER HISTORY: Other cerebral infarction (stroke) COMPARISON: None TECHNIQUE: Ultrasound examination was performed using real time, duplex, and color Doppler. FINDINGS: Right: There is no significant plaque seen in the proximal internal carotid artery. Peak systolic velocity is 114 cm/sec in the distal internal carotid artery. End-diastolic velocity is 16 cm/sec. The systolic ICA/CCA ratio is 1.8. Flow in the vertebral artery is antegrade. Left: There is no significant plaque seen in the proximal internal carotid artery. Peak systolic velocity is 84 cm/sec in the distal internal carotid artery. End-diastolic velocity is 11 cm/sec. The systolic ICA/CCA ratio is 1.4. Flow in the vertebral artery is antegrade. IMPRESSION: No evidence of hemodynamically significant carotid artery stenosis. Electronically signed by: Carmine Anderson M.D. us Jose Higgins IMPORTER EXPORTER IMG US PROCEDURES Final Res ult * TRANSTHORACIC ECHO (TTE) COMPLETE W DOPPLER/CF WO CONTRAST W BUBBLE (01/22/2025 10:20 AM BEHAVIORAL SPECIALIST) Estimated EF 60-70 % CONS SCIMAGE EF Mod BP 71 % CONS SCIMAGE Anatomical Region Laterality Modality Ultrasound 01/22/2025 9:54 AM BEHAVIORAL SPECIALIST Narrative 01/22/2025 2:22 PM BEHAVIORAL SPECIALIST [address] [address] Echocardiogram Report Patient Name: CHARLENE WALTON L : 1935 Study Date: 01/22/2025 9:54:08 AM Sex: F Tech: JESUS Location: [id number] Ref Provider: DIOGENES SULLIVAN Height(Cm): BSA: Weight(Kg): Quality: Adequate Order Provider: DIOGENES SULLIVAN PROCEDURES: Echocardiographic Report: Transthoracic echocardiogram with 2D, M-Mode, and color Doppler examination with saline contrast study. INDICATIONS: Stroke. MEASUREMENTS: 2D/MM Value Range Doppler Value Range EF Teich MM 71.0 % [ 54.0 - 74.0 ] CONNOR Vmax 3.05 cm2 EF Mod BP 71 % [ 54 - 74 ] AV Mean PG 3 mmHg Estimated EF 60-70 % AV Peak Manpreet 1.15 m/s [ 1.00 - 1.70 ] LVIDd MM 3.90 cm [ 3.80 - 5.20 ] AV VTI 24.64 cm LVIDs MM 2.30 cm [ 2.20 - 3.50 ] LVOT Diam 2.25 cm LVPWd MM 1.20 cm [ 0.60 - 0.90 ] LVOT Peak Manpreet 0.88 m/s [ 0.70 - 1.10 ] IVSd MM 1.40 cm [ 0.60 - 0.90 ] LVOT VTI 18.42 cm LA Dimension MM 2.78 cm [ 2.70 - 3.80 ] MV E Peak Manpreet 0.83 m/s [ 0.60 - 1.30 ] AoR Diam MM 2.85 cm [ 2.70 - 3.30 ] MV A Peak Manpreet 1.11 m/s [ 1.00 - 1.20 ] MV Mean PG 2 mmHg MV PHT 38 msec [ 20 - 100 ] MVA 5.80 MV Decel Time 132 msec [ 104 - 258 ] PV Peak Manpreet 0.75 m/s [ 0.40 - 0.80 ] TR Peak Manpreet 2.20 m/s [ 1.00 - 2.80 ] TR Peak PG 19 mmHg RVSP 27.00 mmHg [ 10.00 - 36.00 ] E` 0.08 m/s E/E` 10.85 [ <= 10.00 ] PA Pressure 27.00 mmHg [ 10.00 - 36.00 ] 2D/MM Value Range Doppler Value Range - FINDINGS: Atrial Septum: Normal atrial septum. Left Ventricle: Mild concentric left ventricular hypertrophy. Normal left ventricular size. Normal global left ventricular systolic function. Impaired diastolic relaxation Grade I. Ejection fraction is measured at 71 %. Ejection Fraction is estimated to be 60-70 %. Left Atrium: The left atrium is normal in size. Right Ventricle: Normal right ventricular size. Normal right ventricular systolic function. Right Atrium: The right atrium is normal in size. Aortic Valve: No evidence of hemodynamically significant aortic stenosis by Doppler. Aortic cusps appear mildly sclerotic. Mitral Valve: Mitral valve leaflets appear mildly thickened. Trivial regurgitation of the mitral valve. Pulmonic Valve: Normal structure of the pulmonic valve. No evidence of pulmonic regurgitation. Tricuspid Valve: Normal structure of the tricuspid valve. Normal right ventricular systolic pressure. Trivial regurgitation in the tricuspid valve. Pericardium: Normal pericardium with no significant pericardial effusion. Aorta: Ascending aorta is normal. Descending aorta is normal. There is mild atherosclerosis in the aortic root. IVC: Normal size and normal respiratory collapse consistent with normal right atrial pressure (<5 mmHg). Pulmonary Artery: Pulmonary artery not well visualized. CONCLUSIONS: Mild concentric left ventricular hypertrophy. Normal left ventricular size. Normal global left ventricular systolic function. Impaired diastolic relaxation Grade I. Ejection fraction is measured at 71 %. Ejection Fraction is estimated to be 60-70 %. Normal right ventricular size. Normal right ventricular systolic function. Mitral valve leaflets appear mildly thickened. Trivial regurgitation of the mitral valve. No evidence of hemodynamically significant aortic stenosis by Doppler. Aortic cusps appear mildly sclerotic. Normal structure of the tricuspid valve. Normal right ventricular systolic pressure. Trivial regurgitation in the tricuspid valve. Normal pericardium with no significant pericardial effusion. Technically difficult study with suboptimal visualization. Valves in general are poorly visualized. Electronically Signed By: Judi Vargas MD 01/22/2025 2:21:11 PM BEHAVIORAL SPECIALIST Procedure Note Judi Vargas MD - 01/22/[address] [place] [address] Echocardiogram Report Patient Name: CHARLENE WALTON L : 1935 Study Date: 01/22/2025 9:54:08 AM Sex: F Tech: JESUS Location: [id number] Ref Provider: DIOGENES SULLIVAN Height(Cm): BSA: Weight(Kg): Quality: Adequate Order Provider: DIOGENES SULLIVAN PROCEDURES: Echocardiographic Report: Transthoracic echocardiogram with 2D, M-Mode, and color Dopplerexamination with saline contrast study. INDICATIONS: Stroke. MEASUREMENTS: 2D/MM Value Range Doppler ValueRange EF Teich MM 71.0 % [ 54.0 - 74.0 ] CONNOR Vmax 3.05cm2 EF Mod BP 71 % [ 54 - 74 ] AV Mean PG 3 mmHg Estimated EF 60-70 % AV Peak Manpreet 1.15 m/s[ 1.00 - 1.70 ] LVIDd MM 3.90 cm [ 3.80 - 5.20 ] AV VTI 24.64cm LVIDs MM 2.30 cm [ 2.20 - 3.50 ] LVOT Diam 2.25cm LVPWd MM 1.20 cm [ 0.60 - 0.90 ] LVOT Peak Manpreet 0.88 m/s[ 0.70 - 1.10 ] IVSd MM 1.40 cm [ 0.60 - 0.90 ] LVOT VTI 18.42cm LA Dimension MM 2.78 cm [ 2.70 - 3.80 ] MV E Peak Manpreet 0.83 m/s[ 0.60 - 1.30 ] AoR Diam MM 2.85 cm [ 2.70 - 3.30 ] MV A Peak Manpreet 1.11 m/s[ 1.00 - 1.20 ] MV Mean PG 2 mmHg MV PHT 38 msec [ 20 - 100 ] MVA 5.80 MV Decel Time 132 msec [ 104 - 258 ] PV Peak Manpreet 0.75 m/s [ 0.40 - 0.80 ] TR Peak Manpreet 2.20 m/s [ 1.00 - 2.80 ] TR Peak PG 19 mmHg RVSP 27.00 mmHg [ 10.00 - 36.00 ] E` 0.08 m/s E/E` 10.85 [ <= 10.00 ] PA Pressure 27.00 mmHg [ 10.00 - 36.00 ] 2D/MM Value Range Doppler ValueRange - FINDINGS: Atrial Septum: Normal atrial septum. Left Ventricle: Mild concentric left ventricular hypertrophy. Normal left ventricularsize. Normal global left ventricular systolic function. Impaired diastolic relaxation Grade I.Ejection fraction is measured at 71 %. Ejection Fraction is estimated to be 60-70%. Left Atrium: The left atrium is normal in size. Right Ventricle: Normal right ventricular size. Normal right ventricular systolicfunction. Right Atrium: The right atrium is normal in size. Aortic Valve: No evidence of hemodynamically significant aortic stenosis by Doppler.Aortic cusps appear mildly sclerotic. Mitral Valve: Mitral valve leaflets appear mildly thickened. Trivial regurgitation ofthe mitral valve. Pulmonic Valve: Normal structure of the pulmonic valve. No evidence of pulmonicregurgitation. Tricuspid Valve: Normal structure of the tricuspid valve. Normal right ventricular systolicpressure. Trivial regurgitation in the tricuspid valve. Pericardium: Normal pericardium with no significant pericardial effusion. Aorta: Ascending aorta is normal. Descending aorta is normal. There is mildatherosclerosis in the aortic root. IVC: Normal size and normal respiratory collapse consistent with normal rightatrial pressure (<5 mmHg). Pulmonary Artery: Pulmonary artery not well visualized. CONCLUSIONS: Mild concentric left ventricular hypertrophy. Normal left ventricularsize. Normal global left ventricular systolic function. Impaired diastolic relaxation Grade I.Ejection fraction is measured at 71 %. Ejection Fraction is estimated to be 60-70%. Normal right ventricular size. Normal right ventricular systolicfunction. Mitral valve leaflets appear mildly thickened. Trivial regurgitation ofthe mitral valve. No evidence of hemodynamically significant aortic stenosis by Doppler.Aortic cusps appear mildly sclerotic. Normal structure of the tricuspid valve. Normal right ventricular systolicpressure. Trivial regurgitation in the tricuspid valve. Normal pericardium with no significant pericardial effusion. Technically difficult study with suboptimal visualization. Valves ingeneral are poorly visualized. Electronically Signed By: Judi Vargas MD 01/22/2025 2:21:11 PM BEHAVIORAL SPECIALIST Diogenes Sullivan MD CV ECHO PROCEDURES Final Res ult * ECG 12 lead (01/22/2025 6:24 AM BEHAVIORAL SPECIALIST) 01/22/2025 6:24 AM BEHAVIORAL SPECIALIST Narrative [facility] - 01/22/2025 6:45 AM BEHAVIORAL SPECIALIST Vent Rate: 75 bpm RR Interval: 791 msec IA Interval: 159 msec QRS Duration: 77 msec QT Interval: 405 msec QTC Interval: 434 msec P-R-T [place]: 76 - 35 - 86 degrees IMPRESSION: Baseline artifact, probable SINUS RHYTHM MODERATE ST DEPRESSION [0.05+ mV ST DEPRESSION] ABNORMAL ECG Need repeat EKG with stable baseline Electronically Signed By: Domenico Cohen MD Jose Higgins IMPORTER EXPORTER ECG ORDERABLES Final Resul t Performing Organization Address City/[facility]/ZIP Co de Phone Number [facility] [employer] [facility] * Hemoglobin A1c (01/22/2025 2:33 AM BEHAVIORAL SPECIALIST) Hgb A1C 5.2 4.0 - 5.6 % Estimated Average Glucose 103 mg/dL JOSSE LOPEZ) Comment: The ADA recommends reporting an estimated Average Glucose (eAG) with all Hemoglobin A1c results using the equation derived from a study of 507 normal and diabetic adults. Minority populations were underrepresented and children were not included. (Diabetes Care 31:9901-5008, 2008). The eAG is not equivalent to a fasting glucose. Blood 01/22/2025 2:33 AM BEHAVIORAL SPECIALIST 01/22/2025 3:35 AM BEHAVIORAL SPECIALIST Diogenes Sullivan MD LAB BLOOD ORDERABLES Final R esult JOSSE LOPEZ) 1 [facility] Department [place] [address] * Lipid panel (01/22/2025 2:33 AM BEHAVIORAL SPECIALIST) Cholesterol 196 30 - 199 mg/dL Comment: Interpretive Data Ages < or = 19 years Acceptable: <170 mg/dL Borderline high: 170-199 mg/dL High: >or= 200 mg/dL Ages > or = 20 years Desirable: <200 mg/dL Borderline high: 200-239 mg/dL High: >or= 240 mg/dL Literature References: 1. Expert Panel on Integrated Guidelines for Cardiovascular Health and Risk Reduction in Children and Adolescents. Pediatrics 2011;128:S213 2. NCEP Expert Panel. Circulation 2004;110:227 Current Interpretive Data was last revised on 2017. Triglycerides 109 <=149 mg/dL [facility] PATTERSON ([place]) Comment: Interpretive Data Ages < or = 9 years Acceptable: <75 mg/dL Borderline high: 75-99 mg/dL High: >or= 100 mg/dL Ages 10 to 20 years Acceptable: <90 mg/dL Borderline high: 90-129 mg/dL High: >or= 130 mg/dL Ages > or = 20 years Desirable: <150 mg/dL Borderline high: 150-199 mg/dL High: 200-499 mg/dL Very high: >or= 499 mg/dL Literature References: 1. Expert Panel on Integrated Guidelines for Cardiovascular Health and Risk Reduction in Children and Adolescents. Pediatrics 2011;128:S213 2. NCEP Expert Panel. Circulation 2004;110:227 Current Interpretive Data was last revised on 2017. HDL 56 >=40 mg/dL JOSSE H ([place]) Comment: Interpretive Data Ages < or = 19 years Acceptable: >45 mg/dL Borderline low: 40-45 mg/dL Low: <40 mg/dL Ages > or = 20 years Desirable: >or= 60 mg/dL Low: <40 mg/dL Literature References: 1. Expert Panel on Integrated Guidelines for Cardiovascular Health and Risk Reduction in Children and Adolescents. Pediatrics 2011;128:S213 2. NCEP Expert Panel. Circulation 2004;110:227 Current Interpretive Data was last revised on 2017. LDL, calculated 121 <=129 mg/dL [facility] PATTERSON ([place]) Comment: Interpretive Data Ages < or = 19 years Acceptable: <110 mg/dL Borderline high: 110-129 mg/dL High: >or= 130 mg/dL Ages > or = 20 years Optimal: <100 mg/dL Near optimal: 100-129 mg/dL Borderline high: 130-159 mg/dL High: >160 mg/dL Calculated using the Hugo LDL-C estimating equation. This equation was implemented on 2023. Prior to this date LDL-C was estimated using the Friedewald equation. Literature References: 1. Expert Panel on Integrated Guidelines for Cardiovascular Health and Risk Reduction in Children and Adolescents. Pediatrics 2011;128:S213 2. NCEP Expert Panel. Circulation 2004;110:227 3. Hugo Burt et al. GIGI Cardiol. 2020 June 22;5(5):540-548. doi: 10.1001/[email or web address] Current Interpretive Data was last revised on 2023. Non-HDL Cholesterol 140 mg/dL J[facility]SE PATTERSON ([place]) Comment: Interpretive Data Ages < or = 19 years Acceptable: <120 mg/dL Borderline high: 120-144 mg/dL High: >145 mg/dL Ages > or = 20 years When triglycerides are >200 mg/dL, Non-HDL cholesterol is a secondary target of therapy with treatment goals that are 30 mg/dL greater than the LDL cholesterol target. Literature References: 1. Expert Panel on Integrated Guidelines for Cardiovascular Health and Risk Reduction in Children and Adolescents. Pediatrics 2011;128:S213 2. NCEP Expert Panel. Circulation 2004;110:227 Current Interpretive Data was last revised on 2017. Chol/HDL ratio 4 APARNA PAT[facility] ([place]) Blood 01/22/2025 2:33 AM BEHAVIORAL SPECIALIST 01/22/2025 3:35 AM BEHAVIORAL SPECIALIST us Diogenes Sullivan MD LAB BLOOD ORDERABLES Final R esult J[facility]SE LEONARDO ([place]) 1 [facility] Department [place] [address] * SCAN - LABS (01/22/2025) us Provider Scanning Final Result * (ABNORMAL) Troponin T high-sensitivity 6-hour (01/21/2025 2:10 PM BEHAVIORAL SPECIALIST) Trop T hs 36(H) <=14 ng/L Comment: Interpretive Data For further hscTnT resources including the diagnostic algorithm and an aid in interpretation, copy and paste this link: [email or web address] Current Interpretive Data last revised 2020. Trop T hs delta 4 ng/L [facility] ([place]) Trop T hs interp Insignificant [facility] ([place]) Blood 01/21/2025 2:10 PM BEHAVIORAL SPECIALIST 01/21/2025 3:02 PM BEHAVIORAL SPECIALIST Diogenes Sullivan MD LAB BLOOD ORDERABLES Final R esult Performing Organization Address [facility] Co de Phone Number JOSSE PATTERSON ([place]) [address] [place] [address] [place] [address] * (ABNORMAL) Troponin T high-sensitivity 4-hour (01/21/2025 11:56 AM BEHAVIORAL SPECIALIST) Trop T hs 33(H) <=14 ng/L Comment: Interpretive Data For further hscTnT resources including the diagnostic algorithm and an aid in interpretation, copy and paste this link: [email or web address] Current Interpretive Data last revised 2020. Trop T hs delta 1 ng/L [facility] ([place]) Trop T hs interp Insignificant [facility] ([place]) Blood 01/21/2025 11:5 6 AM BEHAVIORAL SPECIALIST 01/21/2025 11:58 AM BEHAVIORAL SPECIALIST Diogenes Sullivan MD LAB BLOOD ORDERABLES Final R esult [facility] PATTERSON ([place]) 1 [facility] [place] [address] * (ABNORMAL) Troponin T high-sensitivity 2-hour (01/21/2025 11:00 AM BEHAVIORAL SPECIALIST) Trop T hs 35(H) <=14 ng/L Comment: Interpretive Data For further hscTnT resources including the diagnostic algorithm and an aid in interpretation, copy and paste this link: [email or web address] Current Interpretive Data last revised 2020. Trop T hs delta See Comment ng/L CE RNER LEONARDO ([place]) Comment:Inappropriate collec tion time to report a delta. Trop T hs pct delta See Comment % JOSSE PATTERSON ([place]) Comment:Inappropriate collec tion time to report a delta. Trop T hs interp See Comment C SRINIVAS PATTERSON ([place]) Comment:Inappropriate collec tion time to report a delta. Blood 01/21/2025 11:0 0 AM BEHAVIORAL SPECIALIST 01/21/2025 11:31 AM BEHAVIORAL SPECIALIST Nona Hsieh MD LAB BLOOD ORDERABLES Julianne l Result Performing Organization Address City/[facility]/ZIP Co de Phone Number [facility] ([place]) 1 [facility] [place] [address] * Sepsis Lactate w/ Reflex (01/21/2025 11:00 AM BEHAVIORAL SPECIALIST) [facility] Sepsis Lactate 1.6 0.7 - 2.0 mmol/L Blood 01/21/2025 11:0 0 AM BEHAVIORAL SPECIALIST 01/21/2025 11:31 AM BEHAVIORAL SPECIALIST Diogenes Sullivan MD LAB BLOOD ORDERABLES Final R esult Performing Organization Address [facility]/ZIP Co de Phone Number [facility] ([place]) 1 [facility] [place] [address] * (ABNORMAL) Urinalysis reflex to microscopic and culture Urine (01/21/2025 10:13 AM BEHAVIORAL SPECIALIST) Pathologist [facility] Color, ur Yellow Yellow Clarity, ur Clear Clear JOSSE Baird ([place]) Specific gravity, ur 1.015 1.003 - 1.030 [facility] ([place]) pH, urine 6.5 [facility] ([place]) Comment: Interpretive Data U rine pH is affected by diet, medications, systemic acid-base disturbances, and renal tubular function. pH may affect urinary stone formation. For example, urine pH below 6.0 may help reduce the tendency for calcium phosphate stones and pH greater than 6.0 may reduce the tendency for uric acid stone formation. Source: [facility] [employer] Current Interpretive Data was last revised on 2017 Protein, ur ql Trace Negative [facility] ([place]) Glucose, ur ql Negative Negative [facility] Ketones, ur Trace Negative [facility] ([place]) Bilirubin, ur Negative Negative [facility] Blood, ur 3+(A) Negative [facility] ([place]) Urobilinogen, ur <2.0 <2.0 mg/dL [facility] ([place]) Nitrite, ur Negative Negative [facility] ([place]) Leukocyte esterase, ur Negative Negative [facility] ([place]) UA reflex comment Reflex to microscopic UA will be performed. [facility] ([place]) Urine 01/21/2025 10:1 3 AM BEHAVIORAL SPECIALIST 01/21/2025 10:16 AM BEHAVIORAL SPECIALIST Diogenes Sullivan MD LAB MICROBIOLOGY - GENERAL O RDERABLES Final Result [facility] ([place]) 1 [facility] [place] [address] * (ABNORMAL) Urinalysis, microscopic only (01/21/2025 10:13 AM BEHAVIORAL SPECIALIST) WBC, ur 0-5 0 - 5 /HPF RBC, ur 0-2 0 - 2 /HPF [facility] Epithelial cells, squamous, ur 1-5 0 - 5 /HPF [facility] ([place]) Bacteria, ur Trace(A) [facility] ([place]) Mucous, ur Present(A) [facility] ([place]) Culture Reflex Comment Reflex conditions for urine culture (WBC >10) not met. [facility] ([place]) Urine 01/21/2025 10:1 3 AM BEHAVIORAL SPECIALIST 01/21/2025 10:16 AM BEHAVIORAL SPECIALIST us Diogenes Sullivan MD LAB URINE ORDERABLES Final R esult [facility] [place] 1 [facility] [place] [address] * XR Chest 1 View (01/21/2025 8:46 AM BEHAVIORAL SPECIALIST) Anatomical Region Laterality Modality Body, Chest N/A Computed Radiogr aphy 01/21/2025 9:07 AM BEHAVIORAL SPECIALIST Impressions 01/21/2025 9:07 AM BEHAVIORAL SPECIALIST No acute cardiopulmonary process. Electronically signed by: Kuldeep Nicole M.D. Narrative 01/21/2025 9:07 AM BEHAVIORAL SPECIALIST EXAMINATION: XR CHEST 1 VIEW ORDERING HEALTHCARE PROVIDER: DIOGENES SULLIVAN HISTORY: chest pain COMPARISON: Chest radiograph dated on 01/11/2022. TECHNIQUE: Frontal radiographic view of the chest. FINDINGS: LUNGS/PLEURA: Bilateral hyperinflation lungs which may be seen with air trapping or COPD. No focal airspace consolidation. No pleural effusion or pneumothorax is noted. HEART/MEDIASTINUM: The heart size is within normal limits. Thoracic aortic atherosclerosis. Normal mediastinal and hilar contours. HARDWARE/LINES/TUBES: None. BONES: No acute findings. OTHER: No other acute findings. Procedure Note Kuldeep Nicole, DO - 01/21/2025 EXAMINATION: XR CHEST 1 VIEW ORDERING HEALTHCARE PROVIDER: DIOGENES SULLIVAN HISTORY: chest pain COMPARISON: Chest radiograph dated on 01/11/2022. TECHNIQUE: Frontal radiographic view of the chest. FINDINGS: LUNGS/PLEURA: Bilateral hyperinflation lungs which may be seen with air trapping or COPD. No focal airspace consolidation. No pleural effusion or pneumothorax is noted. HEART/MEDIASTINUM: The heart size is within normal limits. Thoracic aortic atherosclerosis. Normal mediastinal and hilar contours. HARDWARE/LINES/TUBES: None. BONES: No acute findings. OTHER: No other acute findings. IMPRESSION: No acute cardiopulmonary process. Electronically signed by: Kuldeep Nicole M.D. us Diogenes Sullivan MD IMG XR PROCEDURES Final Resu lt * CT Cervical Spine WO Contrast (01/21/2025 8:19 AM BEHAVIORAL SPECIALIST) Anatomical Region Laterality Modality Spine N/A Computed Tomogra phy 01/21/2025 8:48 AM BEHAVIORAL SPECIALIST Impressions 01/21/2025 8:48 AM BEHAVIORAL SPECIALIST 1. 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 2. No acute intracranial hemorrhage. 3. No acute displaced fracture or traumatic malalignment of the cervical spine. 4. Multilevel degenerative changes of the cervical spine. 5. Additional incidental and chronic findings as above. Findings communicated to Dr. Diogenes Sullivan at 0845 on 01/21/2025. Electronically signed by: Evangelista Molina M.D. Narrative 01/21/2025 8:48 AM BEHAVIORAL SPECIALIST EXAMINATION: 1. CT head without contrast 2. CT of the cervical spine without contrast HISTORY: Head and neck trauma, minor (Age >= 65y) TECHNIQUE: CT of the head was performed with images acquired from skull base to vertex without intravenous contrast. CT of the cervical spine was performed according to the standard protocol without intravenous contrast. COMPARISON: 11/03/2024, 11/04/2021 11/02/2021 FINDINGS: HEAD: Support Devices: None. Bones/Soft Tissues: No acute displaced fracture. No significant soft tissue injury. Parenchyma/Extra-axial: No acute intracranial hemorrhage. No significant mass effect or midline shift. Patchy and confluent periventricular hypodensities which are nonspecific but commonly seen with moderate chronic microvascular ischemic changes. Age-indeterminate but subacute/acute appearing infarction involving the right anterior insula and frontal operculum (such as series 3 image 25). Ventricles: Unchanged ventricular caliber. Sinuses: No significant paranasal sinus disease. Orbits: Bilateral lens replacement. Scleral calcifications. Mastoids: No significant effusion. Other: Atherosclerotic calcifications. CERVICAL SPINE: Alignment: Similar-appearing stepwise anterolisthesis of C2 on C3 and C3 on C4. No acute traumatic spondylolisthesis. Craniocervical Junction: Severe degenerative changes with pannus formation overlying the dens and at the right C1-occiput which is similar appearance dating back to 11/02/2021. Vertebrae: No acute displaced fracture. Disks: Multilevel height loss. Individual Levels: Advanced multilevel degenerative changes of the cervical spine most pronounced at C5/C6 where there is prominent posterior disc osteophyte complex, uncovertebral joint hypertrophy, and facet arthrosis resulting in severe spinal canal narrowing and hivv-uq-rdugmiza bilateral neural foraminal narrowing. Additional multilevel high-grade neural foraminal and spinal canal narrowing including moderate to severe cyst spinal canal narrowing and hjrn-wn-nybxijmi neural foraminal narrowing at C4/C5. Soft Tissues: Atherosclerotic calcifications. Biapical pleural parenchymal scarring of the lung apices. Other: No significant abnormality. Procedure Note Evangelista Molina MD - 01/21/2025 EXAMINATION: 1. CT head without contrast 2. CT of the cervical spine without contrast HISTORY: Head and neck trauma, minor (Age >= 65y) TECHNIQUE: CT of the head was performed with images acquired from skull base to vertex without intravenous contrast. CT of the cervical spine was performed according to the standard protocol without intravenous contrast. COMPARISON: 11/03/2024, 11/04/2021 11/02/2021 FINDINGS: HEAD: Support Devices: None. Bones/Soft Tissues: No acute displaced fracture. No significant soft tissue injury. Parenchyma/Extra-axial: No acute intracranial hemorrhage. No significant mass effect or midline shift. Patchy and confluent periventricular hypodensities which are nonspecific but commonly seen with moderate chronic microvascular ischemic changes. Age-indeterminate but subacute/acute appearing infarction involving the right anterior insula and frontal operculum (such as series 3 image 25). Ventricles: Unchanged ventricular caliber. Sinuses: No significant paranasal sinus disease. Orbits: Bilateral lens replacement. Scleral calcifications. Mastoids: No significant effusion. Other: Atherosclerotic calcifications. CERVICAL SPINE: Alignment: Similar-appearing stepwise anterolisthesis of C2 on C3 and C3 on C4. No acute traumatic spondylolisthesis. Craniocervical Junction: Severe degenerative changes with pannus formation overlying the dens and at the right C1-occiput which is similar appearance dating back to 11/02/2021. Vertebrae: No acute displaced fracture. Disks: Multilevel height loss. Individual Levels: Advanced multilevel degenerative changes of the cervical spine most pronounced at C5/C6 where there is prominent posterior disc osteophyte complex, uncovertebral joint hypertrophy, and facet arthrosis resulting in severe spinal canal narrowing and vbij-zd-hcyxfjtp bilateral neural foraminal narrowing. Additional multilevel high-grade neural foraminal and spinal canal narrowing including moderate to severe cyst spinal canal narrowing and snbr-td-gbilpdwk neural foraminal narrowing at C4/C5. Soft Tissues: Atherosclerotic calcifications. Biapical pleural parenchymal scarring of the lung apices. Other: No significant abnormality. IMPRESSION: 1. 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 2. No acute intracranial hemorrhage. 3. No acute displaced fracture or traumatic malalignment of the cervical spine. 4. Multilevel degenerative changes of the cervical spine. 5. Additional incidental and chronic findings as above. Findings communicated to Dr. Diogenes Sullivan at 0845 on 01/21/2025. Electronically signed by: Evangelista Molina M.D. Diogenes Sullivan MD IMG CT PROCEDURES Final Resu lt * CT Head WO Contrast (01/21/2025 8:19 AM BEHAVIORAL SPECIALIST) Anatomical Region Laterality Modality Head and Neck N/A Computed Tomogra phy 01/21/2025 8:48 AM BEHAVIORAL SPECIALIST Impressions 01/21/2025 8:48 AM BEHAVIORAL SPECIALIST 1. 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 2. No acute intracranial hemorrhage. 3. No acute displaced fracture or traumatic malalignment of the cervical spine. 4. Multilevel degenerative changes of the cervical spine. 5. Additional incidental and chronic findings as above. Findings communicated to Dr. Diogenes Sullivan at 0845 on 01/21/2025. Electronically signed by: Evangelista Molina M.D. Narrative 01/21/2025 8:48 AM BEHAVIORAL SPECIALIST EXAMINATION: 1. CT head without contrast 2. CT of the cervical spine without contrast HISTORY: Head and neck trauma, minor (Age >= 65y) TECHNIQUE: CT of the head was performed with images acquired from skull base to vertex without intravenous contrast. CT of the cervical spine was performed according to the standard protocol without intravenous contrast. COMPARISON: 11/03/2024, 11/04/2021 11/02/2021 FINDINGS: HEAD: Support Devices: None. Bones/Soft Tissues: No acute displaced fracture. No significant soft tissue injury. Parenchyma/Extra-axial: No acute intracranial hemorrhage. No significant mass effect or midline shift. Patchy and confluent periventricular hypodensities which are nonspecific but commonly seen with moderate chronic microvascular ischemic changes. Age-indeterminate but subacute/acute appearing infarction involving the right anterior insula and frontal operculum (such as series 3 image 25). Ventricles: Unchanged ventricular caliber. Sinuses: No significant paranasal sinus disease. Orbits: Bilateral lens replacement. Scleral calcifications. Mastoids: No significant effusion. Other: Atherosclerotic calcifications. CERVICAL SPINE: Alignment: Similar-appearing stepwise anterolisthesis of C2 on C3 and C3 on C4. No acute traumatic spondylolisthesis. Craniocervical Junction: Severe degenerative changes with pannus formation overlying the dens and at the right C1-occiput which is similar appearance dating back to 11/02/2021. Vertebrae: No acute displaced fracture. Disks: Multilevel height loss. Individual Levels: Advanced multilevel degenerative changes of the cervical spine most pronounced at C5/C6 where there is prominent posterior disc osteophyte complex, uncovertebral joint hypertrophy, and facet arthrosis resulting in severe spinal canal narrowing and znwg-fc-pgmzpnyf bilateral neural foraminal narrowing. Additional multilevel high-grade neural foraminal and spinal canal narrowing including moderate to severe cyst spinal canal narrowing and lhxg-nm-gwimslmb neural foraminal narrowing at C4/C5. Soft Tissues: Atherosclerotic calcifications. Biapical pleural parenchymal scarring of the lung apices. Other: No significant abnormality. Procedure Note Evangelista Molina MD - 01/21/2025 EXAMINATION: 1. CT head without contrast 2. CT of the cervical spine without contrast HISTORY: Head and neck trauma, minor (Age >= 65y) TECHNIQUE: CT of the head was performed with images acquired from skull base to vertex without intravenous contrast. CT of the cervical spine was performed according to the standard protocol without intravenous contrast. COMPARISON: 11/03/2024, 11/04/2021 11/02/2021 FINDINGS: HEAD: Support Devices: None. Bones/Soft Tissues: No acute displaced fracture. No significant soft tissue injury. Parenchyma/Extra-axial: No acute intracranial hemorrhage. No significant mass effect or midline shift. Patchy and confluent periventricular hypodensities which are nonspecific but commonly seen with moderate chronic microvascular ischemic changes. Age-indeterminate but subacute/acute appearing infarction involving the right anterior insula and frontal operculum (such as series 3 image 25). Ventricles: Unchanged ventricular caliber. Sinuses: No significant paranasal sinus disease. Orbits: Bilateral lens replacement. Scleral calcifications. Mastoids: No significant effusion. Other: Atherosclerotic calcifications. CERVICAL SPINE: Alignment: Similar-appearing stepwise anterolisthesis of C2 on C3 and C3 on C4. No acute traumatic spondylolisthesis. Craniocervical Junction: Severe degenerative changes with pannus formation overlying the dens and at the right C1-occiput which is similar appearance dating back to 11/02/2021. Vertebrae: No acute displaced fracture. Disks: Multilevel height loss. Individual Levels: Advanced multilevel degenerative changes of the cervical spine most pronounced at C5/C6 where there is prominent posterior disc osteophyte complex, uncovertebral joint hypertrophy, and facet arthrosis resulting in severe spinal canal narrowing and mzrl-jw-umirqifr bilateral neural foraminal narrowing. Additional multilevel high-grade neural foraminal and spinal canal narrowing including moderate to severe cyst spinal canal narrowing and duwy-gd-fksjwrtq neural foraminal narrowing at C4/C5. Soft Tissues: Atherosclerotic calcifications. Biapical pleural parenchymal scarring of the lung apices. Other: No significant abnormality. IMPRESSION: 1. 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 2. No acute intracranial hemorrhage. 3. No acute displaced fracture or traumatic malalignment of the cervical spine. 4. Multilevel degenerative changes of the cervical spine. 5. Additional incidental and chronic findings as above. Findings communicated to Dr. Diogenes Sullivan at 0845 on 01/21/2025. Electronically signed by: Evangelista Molina M.D. Diogenes Sullivan MD IM CT PROCEDURES Final Resu lt * (ABNORMAL) Troponin T high-sensitivity series (baseline, 2hr, 4hr, 6hr) (01/21/2025 7:50 AM BEHAVIORAL SPECIALIST) Trop T hs 32(H) <=14 ng/L Comment: Interpretive Data For further hscTnT resources including the diagnostic algorithm and an aid in interpretation, copy and paste this link: https://nrl.testcatalog.org/show/hsTrop Current Interpretive Data last revised 2020. Blood 01/21/2025 7:50 AM BEHAVIORAL SPECIALIST 01/21/2025 7:59 AM BEHAVIORAL SPECIALIST Diogenes Sullivan MD LAB BLOOD ORDERABLES Final R esult Performing Organization Address City/[facility] Co de Phone Number [facility] ([place]) [address] [place] [address] [place] [place] [address] * (ABNORMAL) Sepsis Lactate w/ Reflex (01/21/2025 7:50 AM BEHAVIORAL SPECIALIST) Pathologist [facility] Sepsis Lactate 4.3(C) 0.7 - 2.0 mmol/L Comment:Critical result call ed to and read back by radha santillan (er) on 01/21/2025 08:04:09 BEHAVIORAL SPECIALIST to sean mcrae. Blood 01/21/2025 7:50 AM BEHAVIORAL SPECIALIST 01/21/2025 7:59 AM BEHAVIORAL SPECIALIST Diogenes Sullivan MD LAB BLOOD ORDERABLES Final R esult Performing Organization Address [facility] Co de Phone Number [facility] ([place]) [address] [place] [address] Department [place] [address] * eGFR (01/21/2025 7:50 AM BEHAVIORAL SPECIALIST) eGFR 69 >=60 mL/min/1. 73 m2 Comment: Interpretive Data Reference Interval Normal >/= 90 mL/min/1.73m2 Mildly decreased* 60 - 89 mL/min/1.73m2 Mildly to moderately decreased 45 - 59 mL/min/1.73m2 Moderately to severely decreased 30 - 44 mL/min/1.73m2 Severely decreased 15 - 29 mL/min/1.73m2 Kidney Failure < 15 mL/min/1.73m2 *Relative to young adult level Estimated glomerular filtration rate is determined by the 2020 CKD-EPI equation recommended by the National Kid[employer] (A Unifying Approach to GFR Estimation: Recommendations of the NKF-ASK Task Force on Reassessing the Inclusion of Race in Diagnosing Kidney Disease, JASN 2020). The CKD-EPI equation should not be used for patients with unstable renal function and has not been validated in children and those over 70. Current interpretive data was last reviewed 2020. Blood 01/21/2025 7:50 AM BEHAVIORAL SPECIALIST 01/21/2025 7:59 AM BEHAVIORAL SPECIALIST us Diogenes Sullivan MD LAB BLOOD ORDERABLES Final R esult [facility] ([place]) 1 [facility] Department [place] [address] * (ABNORMAL) Differential, auto (01/21/2025 7:50 AM BEHAVIORAL SPECIALIST) Neutrophil abs 13.09(H) 1.50 - 6.50 K/cumm Imm gran abs 0.05 0.00 - 0.10 K/cumm [facility] ([place]) Lymphocyte abs 0.72(L) 0.80 - 3.30 K/cumm [facility] ([place]) Monocyte abs 0.60 0.20 - 0.80 K/cumm [facility] ([place]) Eosinophil abs 0.02 0.00 - 0.50 K/cumm [facility] ([place]) Basophil abs 0.02 0.00 - 0.10 K/cumm [facility] ([place]) Neutrophil pct 90.4 % [facility] ([place]) Comment: Interpretive Data Percent cell count reference ranges are not reported, since discordance with absolute values may lead to misinterpretation of CBC data. Current Interpretive Data was last revised on 2017. Imm gran pct 0.3 % [facility] ([place]) Comment: Interpretive Data Percent cell count reference ranges are not reported, since discordance with absolute values may lead to misinterpretation of CBC data. Current Interpretive Data was last revised on 2017. Lymphocyte pct 5.0 % [facility] ([place]) Comment: Interpretive Data Percent cell count reference ranges are not reported, since discordance with absolute values may lead to misinterpretation of CBC data. Current Interpretive Data was last revised on 2017. Monocyte pct 4.1 % [facility] ([place]) Comment: Interpretive Data Percent cell count reference ranges are not reported, since discordance with absolute values may lead to misinterpretation of CBC data. Current Interpretive Data was last revised on 2017. Eosinophil pct 0.1 % [facility] ([place]) Comment: Interpretive Data Percent cell count reference ranges are not reported, since discordance with absolute values may lead to misinterpretation of CBC data. Current Interpretive Data was last revised on 2017. Basophil pct 0.1 % [facility] ([place]) Comment: Interpretive Data Percent cell count reference ranges are not reported, since discordance with absolute values may lead to misinterpretation of CBC data. Current Interpretive Data was last revised on 2017. Blood 01/21/2025 7:50 AM BEHAVIORAL SPECIALIST 01/21/2025 7:59 AM BEHAVIORAL SPECIALIST Diogenes Sullivan MD LAB BLOOD ORDERABLES Final R esult [facility] ([place]) 1 [facility] Department of Laboratories [place], [place] [id number] * Pro B-type natriuretic peptide (01/21/2025 7:50 AM BEHAVIORAL SPECIALIST) NT-proBNP 397 <=450 pg/mL Comment: Interpretive Comments: A. Dyspnea in Acute Care Setting All Ages: < 300 pg/ml, acute heart failure unlikely. < 50 yrs: 300 - 450 pg/ml, further investigation warranted. > 450 pg/ml, acute heart failure likely. 50 - 74 yrs: 300 - 900 pg/ml, further investigation warranted. > 900 pg/ml, acute heart failure likely . > or = 75 yrs: 450 - 1800 pg/ml, further investigation warranted. > 1800 pg/ml, acute heart failure likely. B. Non-acute Setting < 75 yrs < 125 pg/ml, rules out heart failure. > or = 125 pg/ml, further investigation warranted. > or = 75 yrs < 450 pg/ml, rules out heart failure. > or = 450 pg/ml, further investigation warranted. - Knowledge of each individual patient's NT-proBNP range may be more useful than using similar cut-points for every patient. Please note that marked elevations in NT-proBNP levels may be observed in state other than Left Ventricular Congestive Failure, including: acute coronary syndromes, right heart strain/failure (including pulmonary embolism and cor pulmonale), critical illness, renal failure, as well as advanced age. - References: 1. Campbell DARDEN et.al. Eur Heart J. 2006:27:330-337. 2. Andres MELARA, Yung HOLCOMB. J. AM Trey Cardiol: Cardiovasc Imag. 2009;2: 216- 225. Interpretive Data Last Revised Date: 2017. Blood 01/21/2025 7:50 AM BEHAVIORAL SPECIALIST 01/21/2025 7:59 AM BEHAVIORAL SPECIALIST us Diogenes Sullivan MD LAB BLOOD ORDERABLES Final R esult [facility] ([place]) 1 [facility] Department [place] [address] * (ABNORMAL) CBC with auto differential (01/21/2025 7:50 AM BEHAVIORAL SPECIALIST) WBC 14.50(H) 3.80 - 9.90 K/cumm Hgb 13.7 11.9 - 15.5 g/dL [facility] ([place]) Hct 40.5 35.6 - 45.5 % [facility] ([place]) Plt 335 150 - 400 K/cumm [facility] ([place]) MPV 9.1 9.1 - 12.3 fL [facility] ([place]) RBC 4.33 3.90 - 5.20 M/cumm [facility] ([place]) MCV 93.5 81.3 - 96.4 fL [facility] ([place]) MCH 31.6 27.1 - 33.3 pg [facility] ([place]) MCHC 33.8 32.3 - 35.7 g/dL [facility] ([place]) RDW CV 11.6 11.1 - 14.9 % [facility] ([place]) RDW SD 40.2 35.7 - 48.1 fL [facility] ([place]) NRBC abs 0.00 0.00 - 0.01 K/cumm [facility] ([place]) Blood 01/21/2025 7:50 AM BEHAVIORAL SPECIALIST 01/21/2025 7:59 AM BEHAVIORAL SPECIALIST Diogenes Sullivan MD LAB BLOOD ORDERABLES Final R esult [facility] ([place]) 1 [facility] [employer] [place] [address] * aPTT (01/21/2025 7:50 AM BEHAVIORAL SPECIALIST) aPTT 31 26 - 38 sec [facility] ([place]) Comment: Interpretive Data Heparin therapeutic range: 66.0 - 100.0 seconds. Range based on correlation with therapeutic heparin activity range of 0.3 - 0.7 Units/mL. Blood 01/21/2025 7:50 AM BEHAVIORAL SPECIALIST 01/21/2025 7:59 AM BEHAVIORAL SPECIALIST Diogenes Sullivan MD LAB BLOOD ORDERABLES Final R esult [facility] ([place]) [address] [place] [address] [employer] [place] [address] * Protime-INR (01/21/2025 7:50 AM BEHAVIORAL SPECIALIST) PT 11.6 10.2 - 13.5 sec [facility] ([place]) INR 1.03 0.90 - 1.20 [facility] ([place]) Comment: Interpretive data Oral anticoagulant therapeutic ranges: Venous thromboembolism prophylaxis or treatment: 2.0-3.0 CARDIOLOGY Standard range: 2.0-3.0 High-intensity range: 2.5-3.5 Refer to indication-specific guidelines for appropriate target ranges for prosthetic heart valve replacement. Current interpretive data was last revised on 2019. Blood 01/21/2025 7:50 AM BEHAVIORAL SPECIALIST 01/21/2025 7:59 AM BEHAVIORAL SPECIALIST Diogenes Sullivan MD LAB BLOOD ORDERABLES Final R esult [facility] ([place]) [address] [place] [address] * Magnesium (01/21/2025 7:50 AM BEHAVIORAL SPECIALIST) [facility] Magnesium 1.8 1.4 - 2.5 mg/dL Blood 01/21/2025 7:50 AM BEHAVIORAL SPECIALIST 01/21/2025 7:59 AM BEHAVIORAL SPECIALIST Diogenes Sullivan MD LAB BLOOD ORDERABLES Final R esult Performing Organization Address City/[facility]/ZIP Co de Phone Number [facility] ([place]) 1 [facility] [place] [place] [address] * (ABNORMAL) Creatine kinase (CK), total (01/21/2025 7:50 AM BEHAVIORAL SPECIALIST) [facility] CK 1,572(H) 30 - 200 Units/L Blood 01/21/2025 7:50 AM BEHAVIORAL SPECIALIST 01/21/2025 7:59 AM BEHAVIORAL SPECIALIST Diogenes Sullivan MD LAB BLOOD ORDERABLES Final R esult Performing Organization Address City/[facility]/ZIP Co de Phone Number [facility] ([place]) [address] [place] [address] * (ABNORMAL) Comprehensive metabolic panel (01/21/2025 7:50 AM BEHAVIORAL SPECIALIST) [facility] Sodium 136 135 - 145 mmol/L Potassium, pl 4.1 3.3 - 4.9 mmol/L [facility] Chloride 96(L) 97 - 110 mmol/L [facility] CO2 26 22 - 32 mmol/L [facility] Anion gap 14 2 - 15 mmol/L [facility] BUN 16 6 - 25 mg/dL [facility] Creatinine 0.82 0.60 - 1.10 mg/dL [facility] Glucose 156 70 - 199 mg/dL [facility] Comment: Interpretive Data Fasting glucose >/= 126 mg/dl is diagnostic for diabetes. Fasting is defined as no caloric intake for at least 8 hours. Fasting glucose between 100 mg/dl to 125 mg/dl is diagnostic of prediabetes. In a patient with classic symptoms of hyperglycemia or hyperglycemic crisis, a random glucose >/= 200 mg/dl is diagnostic for diabetes. In the absence of unequivocal hyperglycemia, results should be confirmed by repeat testing. The classification and Diagnosis of Diabetes Diabetes Care 2021; 46: S19-S40. Current interpretive data was last revised 2022. Calcium 9.8 8.5 - 10.3 mg/dL [facility] Bilirubin, total 0.4 0.1 - 1.2 mg/dL [facility] Protein, pl 6.7 6.5 - 8.5 g/dL [facility] Albumin 4.1 3.5 - 5.0 g/dL [facility] Alk phos 35(L) 40 - 130 Units/L [facility] ALT 17 7 - 45 Units/L [facility] AST 39 10 - 45 Units/L [facility] Blood 01/21/2025 7:50 AM BEHAVIORAL SPECIALIST 01/21/2025 7:59 AM BEHAVIORAL SPECIALIST us Diogenes Sullivan MD LAB BLOOD ORDERABLES Final R esult [facility] ([place]) 1 [facility] [place] [address] * ECG 12 lead (01/21/2025 7:44 AM BEHAVIORAL SPECIALIST) 01/21/2025 7:44 AM BEHAVIORAL SPECIALIST Narrative [facility] - 01/22/2025 6:45 AM BEHAVIORAL SPECIALIST Vent Rate: 64 bpm RR Interval: 928 msec IA Interval: 155 msec QRS Duration: 82 msec QT Interval: 420 msec QTC Interval: 430 msec P-R-T [place]: 81 - 44 - 73 degrees IMPRESSION: SINUS RHYTHM NONSPECIFIC T-WAVE ABNORMALITY BORDERLINE ECG Compared to prior EKG, PVCs are no longer present Electronically Signed By: Domenico Cohen MD Diogenes Sullivan MD ECG ORDERABLES Final Result [facility] * Screening Mammogram Bilateral [place] (08/21/2019 9:30 AM CDT) Anatomical Region Laterality Modality Breast Bilateral Mammography 08/21/2019 3:05 PM CDT Impressions 08/21/2019 3:07 PM CDT There is no mammographic evidence of malignancy. A 1 year screening mammogram is recommended. BI-RADS: 1 - Negative. The patient will be entered into a reminder system with a target due date of 1 year for her next mammogram. Electronically signed by: Raj Diaz M.D. Narrative 08/21/2019 3:07 PM CDT EXAMINATION: SCREENING MAMMOGRAM BILATERAL W CUONG ORDERING HEALTHCARE PROVIDER: FLOR[place] MARQUES HISTORY: Routine screening mammography. COMPARISON: 06/11/2018, 06/07/2017, 05/25/2016, 05/23/2015. TECHNIQUE: CC and MLO views of the bilateral breasts were obtained with digital technique using breast tomosynthesis with C view. Computer aided detection was utilized. FINDINGS: DENSITY: There are scattered fibroglandular elements in the bilateral breasts. BREASTS: There are no suspicious masses, suspicious calcifications, or other suspicious findings in either breast. There has been no suspicious interval change. [place] Marques MD IMG MAMMO PROCEDURES Fi nal Result * DEXA SCAN (07/13/2016) DEXA Scan Abnormal Comment:osteopenia Historical Provider HEALTH MAINTENANCE Final Result * COLONOSCOPY IMAGES (12/25/2014) Anatomical Region Laterality Modality Other Narrative 12/25/2014 Ordered by an unspecified provider. Historical Provider GI PROCEDURE ORDERABLES F inal Result from Last 3 Months or Most Recently Relevant to Health Maintenance Insurance MEDICARE FOR LIFE MEDICARE FOR LIFE MEDICARE FOR LIFE Advance Directives For more information, please contact: [phone] * LIMITED - No CPR (Latest Code Status on File) Date Activated Date Inactivated Comments 01/21/2025 10:00 AM 01/25/2025 11:38 AM Question Answer Comments Provide aggressive medical m anagement before a full cardiopulmonary arrest occurs. Use antibiotics, IV Fluids, and medical treatment unless specifically selected below: No intubation * LIMITED - No CPR Date Activated Date Inactivated Comments 11/03/2024 1:36 PM 11/07/2024 9:06 PM Question Answer Comments Provide aggressive medical m anagement before a full cardiopulmonary arrest occurs. Use antibiotics, IV Fluids, and medical treatment unless specifically selected below: No intubationNo vasopressorsNo non-invasive ventilationNo cardioversionNo internal / external pacemaker Discussed with the following attending physician: [place] Marques MD * Full Code Date Activated Date Inactivated Comments 11/02/2021 3:36 PM 11/05/2021 1:04 PM Care Teams Cage Unloader Relationship Specialty Start Date End Date Florida Marques MD PCP - General 05/22/16
[2025-02-07 13:59] LABS: Hematocrit 38.2 % (37.0-47.0); Hemoglobin 12.3 g/dL (12.0-15.0); Immature Granulocyte Percent A 0.6 % (0-0.5); Lymphocytes Absolute Auto 0.59 K/mm3 (0.9-3.2); Mean Corpuscular HGB Conc 32.2 g/dl (32-36); Mean Corpuscular Hemoglobin 30.8 pg (26-34); Mean Corpuscular Volume 95.5 fl (80-100); Nucleated Red Blood Cells Absolute Auto 0.000 K/mm3 (0.0-0.012); Nucleated Red Blood Cells Perc 0.0 % (0.0-0.2); Platelet Count Result 504 k/mm3 (150-375); Red Blood Count 4.00 M/mm3 (4.2-5.4); White Blood Count 6.7 K/mm3 (4.5-10.0)
[2025-02-07 14:09] LABS: INR 1.0; Partial Thromboplastin Time 28.8 Seconds (22.3-36.8); Prothrombin Time 13.0 Seconds (11.1-14.7)
[2025-02-07 14:10] LABS: Alanine Aminotransferase 40 U/L (6-35); Albumin Level 3.6 g/dL (3.5-5.1); Alkaline Phosphatase 61 U/L (38-126); Anion Gap 4 mmol/L (4-12); Aspartate Amino Transferase 35 U/L (14-36); Bilirubin,Total 0.4 mg/dL (0.2-1.3); Blood Urea Nitrogen 19 mg/dL (7-17); Calcium 9.2 mg/dL (8.4-10.2); Carbon Dioxide 30 mmol/L (22-30); Chloride 98 mmol/L (98-107); Creatine Kinase 27 U/L (30-135); Estimated Glomerular Filt Rate > 60; Glucose 114 mg/dL (65-110); Magnesium 1.7 mg/dL (1.6-2.3); Potassium 4.2 mmol/L (3.4-5.0); Sodium 132 mmol/L (137-145); Total Protein 6.7 g/dL (6.3-8.2)
[2025-02-07 15:55] VITALS: BP 147/53; PULSE 65; RESP 14; O2SAT 98
[2025-02-07 16:31] VITALS: BP 144/60; PULSE 70; RESP 15; O2SAT 99
[2025-02-07 16:32] VITALS: BP 144/60; PULSE 76; RESP 17; O2SAT 100
--- OUTSIDE RECORDS SUMMARY | 2025-02-07 16:38 | XMS_ITS ---
Author Organization [facility] Address [address] [place] [phone] Care Team Providers Care Machine Programmer Name Role Phone DR. FLORIDA LANGSTON Primary Care Provider [phone] Lety Rey Unavailable [phone] Allergies Allergen (clinical drug ingredient) Drug/Non Drug Allergy documented on EMR Reaction Allergy Type Onset Date Status Wasp Venom Unknown Drug Allergy Active REASON FOR VISIT chart prep Medications Medication SIG (Take, Route, Frequency, Duration) Notes Start Date End Date Status traMADol HCl 50 MG Tablet 1 tablet as needed Orally every 6 hours As needed 01/30/2025 Active Atorvastatin Calcium 40 MG Tablet 1 tablet Orally Once a day Active Vitamin D3 25 MCG (1000 UT) Tablet 1 tablet Orally Once a day Active amLODIPine Besylate 5 MG Tablet 1 tablet Orally Once a day Active Aspirin 325 MG Tablet 1 tablet Orally On ce a day Active Levothyroxine Sodium 75 MCG Tablet 1 tablet in the morning on an empty stomach Orally Once a day Active PreserVision AREDS - Capsule 4,296 mcg-226 mg-90 mg Orally once a day Active Clopidogrel Bisulfate 75 MG Tablet 1 tablet Orally Once a day Active Donepezil HCl 10 MG Tablet 1 tablet at b edtime Orally Once a day Active Cetirizine HCl 10 MG Tablet 1 tablet Ora lly Once a day Active QUEtiapine Fumarate 25 MG Tablet 1 tablet at bedtime Orally Once a day Active Super B/C - Capsule as directed Orally o nce a day Active Tubersol 5 UNIT/0.1ML Solution 5 unit Intradermal once a day Active Social History Tobacco Use: Social History Observation Description Date Details (start date - stop date) Never Smoker NA - NA Social History Tobacco Use: Social Info Question Answer Notes Tobacco Control (Standard) Tobacco use: Nonsmoker Encounters Encounter Location Date Provider Diagnosis 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 * Family History: F ather: Liver cancer. M other: lung cancer. F amily History Verified.. * Social History: T obacco Use: T obacco Control (Standard) T obacco use: N onsmoker. Social History Verified. * Medications: T akingVitamin D3 25 MCG (1000 UT) Tablet 1 tablet Orally Once a day Tubersol 5 UNIT/0.1ML Solution 5 unit Intradermal once a day Super B/C - Capsule as directed Orally once a day QUEtiapine Fumarate 25 MG Tablet 1 tablet at bedtime Orally Once a day PreserVision AREDS - Capsule 4,296 mcg-226 mg-90 mg Orally once a day Levothyroxine Sodium 75 MCG Tablet 1 tablet in the morning on an empty stomach Orally Once a day Donepezil HCl 10 MG Tablet 1 tablet at bedtime Orally Once a day Clopidogrel Bisulfate 75 MG Tablet 1 tablet Orally Once a day Cetirizine HCl 10 MG Tablet 1 tablet Orally Once a day Atorvastatin Calcium 40 MG Tablet 1 tablet Orally Once a day Aspirin 325 MG Tablet 1 tablet Orally Once a day amLODIPine Besylate 5 MG Tablet 1 tablet Orally Once a day traMADol HCl 50 MG Tablet 1 tablet as needed Orally every 6 hours As neededTaking Vitamin D3 25 MCG (1000 UT) Tablet 1 tablet Orally Once a day Taking Tubersol 5 UNIT/0.1ML Solution 5 unit Intradermal once a day Taking Super B/C - Capsule as directed Orally once a day Taking QUEtiapine Fumarate 25 MG Tablet 1 tablet at bedtime Orally Once a day Taking PreserVision AREDS - Capsule 4,296 mcg-226 mg-90 mg Orally once a day Taking Levothyroxine Sodium 75 MCG Tablet 1 tablet in the morning on an empty stomach Orally Once a day Taking Donepezil HCl 10 MG Tablet 1 tablet at bedtime Orally Once a day Taking Clopidogrel Bisulfate 75 MG Tablet 1 tablet Orally Once a day Taking Cetirizine HCl 10 MG Tablet 1 tablet Orally Once a day Taking Atorvastatin Calcium 40 MG Tablet 1 tablet Orally Once a day Taking Aspirin 325 MG Tablet 1 tablet Orally Once a day Taking amLODIPine Besylate 5 MG Tablet 1 tablet Orally Once a day Taking traMADol HCl 50 MG Tablet 1 tablet as needed Orally every 6 hours As needed * Allergies: W asp VenomyesAllergies Verified. * true * Date: Generated for Ellen mills/Nikole/Hammad on: 04/10/2024 01:49 PM ENGINE TESTER
[2025-02-07 16:39] LABS: Add Urine Microscopic? YES; Appearance Urine Turbid (Clear); Glucose Urine UA Negative (Negative); Leukocyte Esterase Ur 3+ LEU/UL (Negative); Nitrate Urine Positive (Negative); Specific Grav Ur 1.021 (1.001-1.035)
[2025-02-07 17:01] VITALS: BP 140/59; PULSE 65; RESP 16; O2SAT 98
[2025-02-07] MEDS: cefTRIAXone 1 GM in SODIUM CHLORIDE 0.9% IV 50 ML 100 ML IVPB (17:01)
[2025-02-07 17:31] VITALS: BP 122/57; PULSE 65; RESP 17; O2SAT 98
--- OUTSIDE RECORDS SUMMARY | 2025-02-07 18:09 | XMS_ITS | Data Portability ---
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 Not available 11/27/2024 12:57:22 Plan of Treatment Reminders Order Date Submit Date Provider Last Modified By Organization Details Last Modified Time Details Appointments None record ed. Lab None record ed. Referral None record ed. Procedures None record ed. Surgeries None record ed. Imaging None record ed. Medication Orders None record ed. Patient TargetsNo targets recorded. Patient Instructions Encounter Date Encounter Id Patient Instructions Last Modified By Organization Details Last Modified Time 11/13/2024 [id number] I spent 32 minutes providing care to the patient today. More than 50% of that time was spent in discussing the expected course of the disease, discussing prognosis, coordinating care and counseling of the patient/family. [email or web address] Not available 11/15/2024 06:32:06 11/16/2024 [id number] I spent 35 minutes providing care to the patient today. More than 50% of that time was spent in discussing the expected course of the disease, discussing prognosis, coordinating care and counseling of the patient/family. Not available 11/16/2024 15:32:26 11/21/2024 [id number] I spent 36 minutes providing care to the patient today. More than 50% of that time was spent in discussing the expected course of the disease, discussing prognosis, coordinating care and counseling of the patient/family. Not available 11/21/2024 16:46:33 11/23/2024 [id number] I spent 33 minutes providing care to the patient today. More than 50% of that time was spent in discussing the expected course of the disease, discussing prognosis, coordinating care and counseling of the patient/family. [email or web address] Not available 11/23/2024 16:17:32 11/27/2024 [id number] I spent 40 minutes providing care to the patient today. More than 50% of that time was spent in discussing the expected course of the disease, discussing prognosis, coordinating care and counseling of the patient/family. The patient will be discharged home with home health orders of home health RN / PT / OT to evaluate and treat. The patient is homebound because of fall risk and is unable to leave home safely because requires considerable and taxing effort to leave home. The patient requires home health nursing for instruction, observation and assessment; PT for training to restore safe independent functional ambulation in community; and OT for training to improve ability to fulfill ADLs. Please follow-up with your primary care provider within 1 week. Call your primary care provider for instructions or go to the emergency room for new or worsening symptoms. [email or web address] Not available 11/27/2024 12:57:32 Reason for Referral None Reported. Results Created Date Observation Date Name Description Value Unit Range Abnormal Flag Note LastModifiedBy Organization Detail LastModifiedTime Result Notes None recorded. Medical Equipment None Reported. Allergies Allergen ID Allergen Name Allergen Category Reaction Reaction Severity Criticality Documentation Date Start Date Code Code System Note Provider Name and Address Organization Details Recorded Time 26966 wasp venoms environme nt Not available Not available Not available 11/08/2024 [id number] RxNorm Herbert rodriguez [facility] 02:15:53 Medications Name Sig Start Date Stop Date Status Note LastModified by Organization Details LastModified Time quetiapine 25 mg tablet Take 1 tablet every day by oral route at bedtime . active Not Available Not Available No t Available cetirizine 10 mg tablet Take 1 tablet every day by oral route as needed. active Not Available Not Available No t Available donepezil 10 mg tablet Take 1 tablet every day by oral route. active Not Available Not Available No t Available aspirin 81 mg tablet,delayed release Take 1 tablet every day by oral route. active Not Available Not Available No t Available levothyroxine 75 mcg tablet Take 1 tablet every day by oral route. active Not Available Not Available No t Available lisinopril 10 mg tablet Take 1 tablet every day by oral route. active Not Available Not Available No t Available PreserVision AREDS 2,148 mcg-113 mg-45 mg-17.4 mg tablet Take 1 tablet every day by oral route. active Not Available Not Available No t Available cholecalciferol (vitamin D3) 25 mcg (1,000 unit) tablet Take 1 tablet every day by oral route. active Not Available Not Available No t Available B-complex with vitamin C 400 mcg-500 mg tablet Take 1 tablet every day by oral route. active Not Available Not Available No t Available Vitals Date Recorded Heart rate Body temperature Respiratory rate Oxygen saturation Body weight Systolic And Diastolic Provider Name and Address Organization Details Last Updated DateTime 5 69.98 /min 97.4 [degF] 16 /min 96 % 17742.9 2 g 122/51 mm[Hg] [place] [address] [place], [address], [facility] 5 22:35:00 Date Recorded Body height Heart rate Body temperature Respiratory rate Oxygen saturation Body mass index (BMI) Body weight Systolic And Diastolic Provider Name and Address Organization Details Last Updated DateTime 5 162.56 cm 85 /min 97.3 [degF] 16 /min 95 % 18 kg/m2 41748.7 6 g 133/54 mm[Hg] [place] [address] [place], [address], [facility] 5 15:14:53 Date Recorded Body height Heart rate Body temperature Respiratory rate Oxygen saturation Body mass index (BMI) Body weight Systolic And Diastolic Provider Name and Address Organization Details Last Updated DateTime 5 162.56 cm 66 /min 97.9 [degF] 18 /min 96 % 18.7 kg/m2 69017.5 7 g 108/53 mm[Hg] [place] [address] [place], [address], [facility] 15:57:13 Date Recorded Body height Heart rate Body temperature Respiratory rate Oxygen saturation Body mass index (BMI) Body weight Systolic And Diastolic Provider Name and Address Organization Details Last Updated DateTime 162.56 cm 63 /min 97.7 [degF] 18 /min 98 % 18.8 kg/m2 75678.4 4 g 93/60 mm[Hg] [place] [address] [place], [address] , [facility] 15:05:37 Date Recorded Body height Heart rate Body temperature Respiratory rate Oxygen saturation Body mass index (BMI) Body weight Systolic And Diastolic Provider Name and Address Organization Details Last Updated DateTime 162.56 cm 69 /min 97.5 [degF] 18 /min 97 % 18.4 kg/m2 37885.1 g 121/61 mm[Hg] [place] [address] [place], [address], [facility] 12:53:54 Social History Question Answer Notes LastModified by [email or web address] Details LastModified Time Tobacco Smoking Status Never Smoker [facility] 11/13/2024 01:12:09 What Is Your Code Status? DNR [email or web address] Information not available 11/08/2024 Sex: Unknown Functional Status Question Answer Note LastModified by [email or web address] Details LastModified Time Do you use any illicit or recreational drugs? No Information not available 11/13/2024 What is your level of alcohol consumption? None Information not available 11/13/2024 Mental Status None recorded. Family History Relationship Description Onset Age of this Age Resolved Age Notes LastModified by Organization Details LastModified Time Mother Hypertensive disorder [email or web address] Not available 2024 01:12:59 Mother Malignant neoplasm of lung [email or web address] Not available 2024 01:13:04 Father Malignant neoplasm of liver [email or web address] Not available 2024 01:13:11 Medical History Condition Response Alzheimer's Disease Y Syncope Y Hyperlipidemia Y Allergic Rhinitis Y Hypothyroidism Y Dementia w/Behavioral Disturbance Y Gynecological HistoryNo gynecological history recorded. Obstetrics History GPAL:G 0 P 0 0 0 0 Past Encounters Encounter ID Performer Location Encounter Start Date Encounter Closed Date Diagnosis/Indication Diagnosis SNOMED-CT Code Diagnosis ICD10 Code Diagnosis IMO Codes Diagnosis Note [id number] Molly Nguyen, [place] [address] [place] [address] 11/08/2024 23:10:20 11/17/2024 22:17:51 Alzheimer's disease 04930328 G30.9 F02.B0 7538148004 continue ariceptST to followsupp ortive measures Normal pre ssure hydrocephalus 11951719 G91.2 97299 s/p therapeuti c LP with some reported functional improvemen tf/u with NS as outpatient to further discuss shunt placement Essential hypertension 14922214 I10 48521 continue lisinopril trend pressures and adjust meds as clinically indicated Acquired hypothyroidism 725022051 E03.9 47095 presumed stable - continue synthroidw ill check thyroid studies with next lab draw Allergic rhinitis 251881 04 J30.89 9178281473 trial of zyrtec prn Primary insomnia 3733341 F51.01 98079 has been treated with seroquel for quite some time per her daughterth is med dates back to at least June of 2023 per epic reviewidea lly, would use alternate therapy in this elderly female with dementiawi ll continue for now during her anticipate d short rehab stay to avoid disruption in sleep pattern/mo od and potentiall y her rehab progressde figueroa to PCP to wean and d/c Senile osteoporosis 1804 0001 M81.0 8630379 continue outpatient infusions of proliacont inue vitamin D replacemen t Hyperlipidemia 26957705 E78.5 46712183 previously treated with statin therapy but this has been stopped per PCP as benefits are likely very limited at this point Moderate p rotein energy malnutrition 220366039 E44.[address] follow while heretrend weightsdie tary supplement s as tolerated Syncope 908922132 R55 [id number] w/u during her inpatient stay was relatively negativeof note, she has a history of same and is followed by cardiology related to this, Dr. Fran Dao appointmen t is scheduled for onito r clinically Physical deconditioning 7378427698 9102 R53.81 098522 related to advanced age, dementia, recent hospitaliz ation, comorbidit iestherapi es have been initiated - goal is for her to return home with family support upon d/c from [facility] [id number] Molly Nguyen, [place] [address] [place] [address] 11/09/2024 10:48:37 11/17/2024 22:16:36 Syncope 734045468 R55 [id number] w/u during her inpatient stay was relatively negative.O f note, she has a history of same and is followed by cardiology related to this, Dr. Fran Cain. Next appointmen t on 12/28.Monit or clinically . Alzheimer's disease 2692 9004 G30.9 F02.B0 2349558837 Stable, no concerns with behaviors at present. Continue Aricept.ST to follow.Con tinue supportive measures.P CP to consider tapering off Seroquel and trialling alternativ e medication for insomnia if family in agreement. Mirtazapin e would be a good option. Normal pre ssure hydrocephalus 47452380 G91.2 19267 s/p therapeuti c LP with some reported functional improvemen t.F/U with NS as outpatient to further discuss shunt placement. Essential hypertension 05366021 I10 74784 Stable. Continue Lisinopril .Continue to trend blood pressures, monitor lytes and renal function, and adjust meds as clinically indicated. Acquired hypothyroidism 794418081 E03.9 21857 Presumed stable. Continue Synthroid. Checking thyroid studies with next lab draw. Allergic rhinitis 846130 04 J30.89 7327554849 Changed Zyrtec to PRN. Monitor symptoms. Primary insomnia 5887046 F51.01 73682 SEE ABOVE... Senile osteoporosis 1804 0001 M81.0 4634395 Stable. Continue outpatient infusions of Prolia.Con tinue vitamin D replacemen t. Hyperlipidemia 55996940 E78.5 70330946 Previously treated with statin therapy but this has been stopped per PCP as benefits are likely very limited at this point. Moderate p rotein energy malnutrition 343575758 E44.[address] follow while here.Trend weights.Di etary supplement s as tolerated. Physical deconditioning 7142325907 9102 R53.81 671832 Related to advanced age, dementia, recent hospitaliz ation, comorbidit ies.Contin ue therapies and monitor progress. Goal is for her to return home with family support upon d/c from SNF. [id number] Molly Wendy, [place] [address] [place] [address] 11/13/2024 21:24:30 11/17/2024 22:18:35 Syncope 490287353 R55 [id number] w/u during her inpatient stay was relatively negativeof note, she has a history of same and is followed by cardiology related to this, Dr. Fran Dao appointmen t is scheduled for onito r clinically Alzheimer's disease 2692 9004 G30.9 F02.B0 0132027561 continue ariceptST followingc ontinue supportive measures Normal pre ssure hydrocephalus 87212431 G91.2 37402 s/p therapeuti c LP with some reported functional improvemen tf/u with NS as outpatient to further discuss shunt placement Essential hypertension 62094516 I10 02715 continue lisinopril trend pressures and adjust meds as clinically indicated Acquired hypothyroidism 466131131 E03.9 89040 presumed stable - continue synthroidw ill check thyroid studies with next lab draw Allergic rhinitis 912756 04 J30.89 5144621792 continue zyrtec prn - no reported increase in symptoms since changing to prn Primary insomnia 8645253 F51.01 92592 has been treated with seroquel for quite some time per her daughterth is med dates back to at least June of 2023 per epic reviewidea lly, would use alternate therapy in this elderly female with dementiawi ll continue for now during her anticipate d short rehab stay to avoid disruption in sleep pattern/mo od and potentiall y her rehab progressde figueroa to PCP to wean and d/c Senile osteoporosis 1804 0001 M81.0 9472063 continue outpatient infusions of proliacont inue vitamin D replacemen t Hyperlipidemia 78374332 E78.5 67601891 previously treated with statin therapy but this has been stopped per PCP as benefits are likely very limited at this point Moderate p rotein energy malnutrition 662461745 E44.[address] follow while heretrend weightsdie tary supplement s as tolerated Physical deconditioning 7423234477 9102 R53.81 888000 related to advanced age, dementia, recent hospitaliz ation, comorbidit iestherapkhadra asher continue - goal is for her to return home with family support upon d/c from SNF - d/c is tentativel y scheduled for 11/28 although suspect she may be ready for transition to a lower level of care prior to this considerollie g current functional measures [id number] Molly Nguyen, [place] [address] [facility] [place] [address] 11/16/2024 12:51:45 11/17/2024 22:17:11 Syncope 945916785 R55 [id number] w/u during her inpatient stay was relatively negative.O f note, she has a history of same and is followed by cardiology related to this, Dr. Fran Cain. Next appointmen t on 12/28.Monit or clinically . Normal pre ssure hydrocephalus 02526336 G91.2 65836 s/p therapeuti c LP with some reported functional improvemen t.Neurolog y questioned whether she would be a good candidate for a [employer]APH[employer]ILL OPERATOR shunt and NS was not available at the hospital, so she will f/u as OP with NS to discuss further. Essential hypertension 57770485 I10 97806 Stable. Continue Lisinopril .Continue to trend blood pressures, monitor lytes and renal function, and adjust meds as clinically indicated. Hyperlipidemia 92026565 E78.5 77284804 Previously treated with statin therapy but this has been stopped per PCP as benefits are likely very limited at this point. Alzheimer's disease 2692 9004 G30.9 F02.B0 6947817995 Stable, no concerns with behaviors at present. Continue Aricept.ST to follow.Con tinue supportive measures.P CP to consider tapering off Seroquel and trialling alternativ e medication for insomnia if family in agreement. Mirtazapin e would be a good option. Primary insomnia 6246370 F51.01 95262 SEE ABOVE... Acquired hypothyroidism 504093499 E03.9 74038 Presumed stable. Continue Synthroid. Checking thyroid studies with next lab draw. Senile osteoporosis 1804 0001 M81.0 7576454 Stable. Continue outpatient infusions of Prolia.Con tinue vitamin D replacemen t. Allergic rhinitis 424842 04 J30.89 0136310285 Changed Zyrtec to PRN. Monitor symptoms. Moderate p rotein energy malnutrition 923674722 E44.[address] follow while here.Trend weights.Di etary supplement s as tolerated. Physical deconditioning 4362087799 9102 R53.81 252903 Related to advanced age, dementia, recent hospitaliz ation, comorbidit ies.Contin ue therapies and monitor progress. Goal is for her to return home with family support upon d/c from SNF. [id number] Molly Wendy, DO [facility] [address] [place] [address] 11/21/2024 11:22:42 11/24/2024 22:29:00 Syncope 760894184 R55 [id number] w/u during her inpatient stay was relatively negative.O f note, she has a history of same and is followed by cardiology related to this, Dr. Fran Cain. Next appointmen t on 12/28.Monit or clinically . Normal pre ssure hydrocephalus 31892681 G91.2 43679 s/p therapeuti c LP with some reported functional improvemen t.Neurolog y questioned whether she would be a good candidate for a NAPHTHALENE STILL OPERATOR shunt and NS was not available at the hospital, so she will f/u as OP with NS to discuss further. Essential hypertension 26280641 I10 65584 Stable. Continue Lisinopril .Continue to trend blood pressures, monitor lytes and renal function, and adjust meds as clinically indicated. Hyperlipidemia 49395479 E78.5 86336966 Previously treated with statin therapy but this has been stopped per PCP as benefits are likely very limited at this point. Alzheimer's disease 2692 9004 G30.9 F02.B0 9917067320 Stable, no concerns with behaviors at present. Continue Aricept.ST to follow.Con tinue supportive measures.P CP to consider tapering off Seroquel and trialling alternativ e medication for insomnia if family in agreement. Mirtazapin e would be a good option. Primary insomnia 8276897 F51.01 37266 SEE ABOVE... Acquired hypothyroidism 472536141 E03.9 82963 Presumed stable. Continue Synthroid. Checking thyroid studies with next lab draw. Senile osteoporosis 1804 0001 M81.0 7552714 Stable. Continue outpatient infusions of Prolia.Con tinue vitamin D replacemen t. Allergic rhinitis 083410 04 J30.89 8204364506 Changed Zyrtec to PRN. Monitor symptoms. Moderate p rotein energy malnutrition 893855058 E44.[address] follow while here.Trend weights.Di etary supplement s as tolerated. Physical deconditioning 1827449005 9102 R53.81 466305 Related to advanced age, dementia, recent hospitaliz ation, comorbidit ies.Contin ue therapies and monitor progress. Goal is for her to return home with family support upon d/c from SNF. [id number] Molly Nguyen, DO [address] [address] 11/23/2024 09:40:29 11/24/2024 22:29:38 Essential hypertension 92488452 I10 05311 Stable. Continue Lisinopril .Continue to trend blood pressures, monitor lytes and renal function, and adjust meds as clinically indicated. Syncope 721854885 R55 [id number] w/u during her inpatient stay was relatively negative.O f note, she has a history of same and is followed by cardiology related to this, Dr. Fran Cain. Next appointmen t on 12/28.Monit or clinically . Normal pre ssure hydrocephalus 67802147 G91.2 96301 s/p therapeuti c LP with some reported functional improvemen t.Neurolog y questioned whether she would be a good candidate for a NAPHTHALENE STILL OPERATOR shunt and NS was not available at the hospital, so she will f/u as OP with NS to discuss further. Hyperlipidemia 67602470 E78.5 07871083 Previously treated with statin therapy but this has been stopped per PCP as benefits are likely very limited at this point. Alzheimer's disease 2692 9004 G30.9 F02.B0 1298284607 Stable, no concerns with behaviors at present. Continue Aricept.ST to follow.Con tinue supportive measures.P CP to consider tapering off Seroquel and trialling alternativ e medication for insomnia if family in agreement. Mirtazapin e would be a good option. Primary insomnia 0598542 F51.01 56856 SEE ABOVE... Acquired hypothyroidism 725817472 E03.9 18311 Presumed stable. Continue Synthroid. Checking thyroid studies with next lab draw. Senile osteoporosis 1804 0001 M81.0 1276652 Stable. Continue outpatient infusions of Prolia.Con tinue vitamin D replacemen t. Allergic rhinitis 040408 04 J30.89 1935374957 Changed Zyrtec to PRN. Monitor symptoms. Moderate p rotein energy malnutrition 272745474 E44.[address] follow while here.Trend weights.Di etary supplement s as tolerated. Physical deconditioning 8614855387 9102 R53.81 092785 Related to advanced age, dementia, recent hospitaliz ation, comorbidit ies.Contin ue therapies and monitor progress. Goal is for her to return home with family support upon d/c from SNF. [id number] Molly Nguyen, DO [address] [address] 11/27/2024 09:39:13 12/03/2024 11:38:44 Essential hypertension 31308510 I10 94509 Stable. Continue Lisinopril .Continue to trend blood pressures, monitor lytes and renal function, and adjust meds as clinically indicated. Syncope 338827705 R55 [id number] w/u during her inpatient stay was relatively negative.O f note, she has a history of same and is followed by cardiology related to this, Dr. Fran Cain. Next appointmen t on 12/28.Monit or clinically . Normal pre ssure hydrocephalus 08091242 G91.2 08170 s/p therapeuti c LP with some reported functional improvemen t.Neurolog y questioned whether she would be a good candidate for a NAPHTHALENE STILL OPERATOR shunt and NS was not available at the hospital, so she will f/u as OP with NS to discuss further. Hyperlipidemia 73683716 E78.5 30376292 Previously treated with statin therapy but this has been stopped per PCP as benefits are likely very limited at this point. Alzheimer's disease 2692 9004 G30.9 F02.B0 0984119308 Stable, no concerns with behaviors at present. Continue Aricept.ST has followed.C ontinue supportive measures.P CP to consider tapering off Seroquel and trialling alternativ e medication for insomnia if family in agreement. Mirtazapin e would be a good option. Primary insomnia 0636135 F51.01 17792 SEE ABOVE... Acquired hypothyroidism 384105644 E03.9 49571 Stable. 11/15 TSH 0.510, Free T4 0.96.Marino nue Synthroid. Senile osteoporosis 1804 0001 M81.0 7469748 Stable. Continue outpatient infusions of Prolia.Con tinue vitamin D replacemen t. Allergic rhinitis 970584 04 J30.89 1569878327 Changed Zyrtec to PRN. Monitor symptoms. Moderate p rotein energy malnutrition 272922283 E44.[address] followed here.Trend weights.Di etary supplement s as tolerated. Health Concerns Section Related Observation LastModified by Organization Detai ls LastModified Time None Recorded Concern Status LastModified by Organization Details LastModified Time None Recorded Advance Directives Directive None Recorded Payers Insurance Date Sequence Insurance Name Policy Number Policy Velazco Covered Member ID Velazco Member ID Guarantor Name 12/03/2024 2 FOR LIFE ( - MEDICARE SUPPLEMENT) Charlene Gamezan [id number] Charlene Gamezan 12/03/2024 1 [place] Charlene Dueñas Fontana [id number] Charlene Fontana Notes Date Note Type Note Provider Name and Address Organization Details Recorded Time 5 text/html f/u syncope, dementia, NPH, physical deconditioning and chronic medical conditions Charlene is sitting up in her bedside chair this evening. She is doing well with therapy - AMB 200 feet x 2 today / CGA with FWW, SBA for STS and functional mobility with OT. D/C is scheduled for 11/28. No new complaints or concerns. No nursing concerns[place] [address] [place], [address], [facility] 11/15/2024 06:32:34 5 text/html F/U syncope, questionable normal pressure hydrocephalus s/p LP, deconditioning/weakness, and chronic medical conditions.---11/08/24Bett meng is sitting in her bedside chair this afternoon. She is not a good historian - not clear on details of her hospitalization, medical history or medications. She feels well, a bit weak but without specific complaints or concerns. She lives alone in a home in [place] - does have a caregiver a few days/week. She is typically IND with mobility and ADLs. No nursing concerns.---11/09/24Charlene is seated in her recliner, visiting with a friend. She is a fair historian with forgetfulness, denies pain or concerns, simply notes she is weak and wants to work on her strength. We discuss her use of Seroquel. She does not recognize the name of the medication but tells me she takes a pink pill at night to help her sleep, likely Seroquel. We discuss the side effects of this medication and that we may want to trial alternative medications while she is here with us. She is open to this idea at this time. VSS. Staff is without concerns today. Per therapy notes = Patient ambulated 100 ft on level surfaces with a FWW, requiring CGA. Patient requires cueing for safe AD management due to path deviations. Patient performed sit to stand and pivot transfers: CGA-SBA with cueing for hand placement.---11/13/24Bedana y is sitting up in her bedside chair this evening. She is doing well with therapy - AMB 200 feet x 2 today / CGA with FWW, SBA for STS and functional mobility with OT. D/C is scheduled for 11/28. No new complaints or concerns. No nursing concerns. Vitals stable.---11/16/24Charlene is doing well, seated in her recliner, initially sleeping but awakens to my voice. She tells me therapy is going well, she denies any dizziness or light headedness, no troubles with ambulation. VSS. Staff is without concerns but SW does request I call Charlene's daughter Joyce as she had some questions regarding NS follow up. I reach out and let her know that, per Dr. Doss's discharge summary, she will f/u with NS as OP to further assess whether she would be a NAPHTHALENE STILL OPERATOR shunt candidate. She tells me that neurology had expressed they didn't think she would be, to which I respond they will likely just do therapeutic LPs in the future but we also discussed the infection risk that would come along with this. She expresses understanding and plan sto f/u with Dr. Doss upon Charlene's discharge to discuss further and receive referral to his NS of choice. Joyce is otherwise without concerns for her mother at this point. Per therapy notes = Patient ambulated 200 ft on level surfaces with a FWW, requiring SBA-CGA. Pt required cueing for navigation. Pt performed sit to stand and pivot transfers requiring CGA-SBA. 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 She is not a good historian - not clear on details of her hospitalization, medical history or medications. She feels well, a bit weak but without specific complaints or concerns. She lives alone in a home in [place] - does have a caregiver a few days/week. She is typically IND with mobility and ADLs. No nursing concerns.---11/09/24Charlene is seated in her recliner, visiting with a friend. She is a fair historian with forgetfulness, denies pain or concerns, simply notes she is weak and wants to work on her strength. We discuss her use of Seroquel. She does not recognize the name of the medication but tells me she takes a pink pill at night to help her sleep, likely Seroquel. We discuss the side effects of this medication and that we may want to trial alternative medications while she is here with us. She is open to this idea at this time. VSS. Staff is without concerns today. Per therapy notes = Patient ambulated 100 ft on level surfaces with a FWW, requiring CGA. Patient requires cueing for safe AD management due to path deviations. Patient performed sit to stand and pivot transfers: CGA-SBA with cueing for hand placement.---11/13/24Bett y is sitting up in her bedside chair this evening. She is doing well with therapy - AMB 200 feet x 2 today / CGA with FWW, SBA for STS and functional mobility with OT. D/C is scheduled for 11/28. No new complaints or concerns. No nursing concerns. Vitals stable.---11/16/24Bemeng is doing well, seated in her recliner, initially sleeping but awakens to my voice. She tells me therapy is going well, she denies any dizziness or light headedness, no troubles with ambulation. VSS. Staff is without concerns but SW does request I call Charlene's daughter Joyce as she had some questions regarding NS follow up. I reach out and let her know that, per Dr. Doss's discharge summary, she will f/u with NS as OP to further assess whether she would be a NAPHTHALENE STILL OPERATOR shunt candidate. She tells me that neurology had expressed they didn't think she would be, to which I respond they will likely just do therapeutic LPs in the future but we also discussed the infection risk that would come along with this. She expresses understanding and plan sto f/u with Dr. Doss upon Charlene's discharge to discuss further and receive referral to his NS of choice. Joyce is otherwise without concerns for her mother at this point. Per therapy notes = Patient ambulated 200 ft on level surfaces with a FWW, requiring SBA-CGA. Pt required cueing for navigation. Pt performed sit to stand and pivot transfers requiring CGA-SBA.---11/21/24Bettmeng is seated in her recliner in her room, doing well, reports her therapy is going well and she feels she is making good progress. VSS. Staff is without concerns today. Per therapy notes = Patient ambulated 220 ft x2 on level surfaces with a FWW, requiring SBA. Cueing for navigation. 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 She is not a good historian - not clear on details of her hospitalization, medical history or medications. She feels well, a bit weak but without specific complaints or concerns. She lives alone in a home in [place] - does have a caregiver a few days/week. She is typically IND with mobility and ADLs. No nursing concerns.---11/09/24Charlene is seated in her recliner, visiting with a friend. She is a fair historian with forgetfulness, denies pain or concerns, simply notes she is weak and wants to work on her strength. We discuss her use of Seroquel. She does not recognize the name of the medication but tells me she takes a pink pill at night to help her sleep, likely Seroquel. We discuss the side effects of this medication and that we may want to trial alternative medications while she is here with us. She is open to this idea at this time. VSS. Staff is without concerns today. Per therapy notes = Patient ambulated 100 ft on level surfaces with a FWW, requiring CGA. Patient requires cueing for safe AD management due to path deviations. Patient performed sit to stand and pivot transfers: CGA-SBA with cueing for hand placement.---11/13/24Chaitanya y is sitting up in her bedside chair this evening. She is doing well with therapy - AMB 200 feet x 2 today / CGA with FWW, SBA for STS and functional mobility with OT. D/C is scheduled for 11/28. No new complaints or concerns. No nursing concerns. Vitals stable.---11/16/24Charlene is doing well, seated in her recliner, initially sleeping but awakens to my voice. She tells me therapy is going well, she denies any dizziness or light headedness, no troubles with ambulation. VSS. Staff is without concerns but SW does request I call Charlene's daughter Joyce as she had some questions regarding NS follow up. I reach out and let her know that, per Dr. Doss's discharge summary, she will f/u with NS as OP to further assess whether she would be a NAPHTHALENE STILL OPERATOR shunt candidate. She tells me that neurology had expressed they didn't think she would be, to which I respond they will likely just do therapeutic LPs in the future but we also discussed the infection risk that would come along with this. She expresses understanding and plan sto f/u with Dr. Doss upon Charlene's discharge to discuss further and receive referral to his NS of choice. Joyce is otherwise without concerns for her mother at this point. Per therapy notes = Patient ambulated 200 ft on level surfaces with a FWW, requiring SBA-CGA. Pt required cueing for navigation. Pt performed sit to stand and pivot transfers requiring CGA-SBA.---11/21/24Bettmeng is seated in her recliner in her room, doing well, reports her therapy is going well and she feels she is making good progress. VSS. Staff is without concerns today. Per therapy notes = Patient ambulated 220 ft x2 on level surfaces with a FWW, requiring SBA. Cueing for navigation.---11/23/24Bet ty is doing well today, seated in her recliner, feels her therapy continues to go well, is without concerns or pain to report today. VSS. Staff is without concerns today. Per therapy notes = Conducted gait training with FWW 200' SBA cues for direction and to keep AD on the floor. Tends to picker and sorter load and unload and carry AD. Jeannette Plaza, GEE [address] [place], [address], [facility] 11/23/2024 16:17:42 5 text/html ROS as noted in the HPI 89 Y/O female with a history of dementia, HTN, hypothyroidism, allergic rhinitis, osteoporosis and HLD admitted to [facility] for post acute rehab subsequent to an inpatient stay at [facility] 11/03-11/07/2024 related to syncope. Per discharge summary:The patient was brought to the hospital by her family after having an episode of unresponsiveness on the morning of admissionHospital Course:Once in the hospital the patient is evaluated thoroughly we watched her on telemetry there was no Juanjose or tachyarrhythmias to explain her spell pretty she was seen by Neurology and had an EEG the EEG was normal so no sign of seizures which my initial concern was. Because of her enlarged ventricles on her CT scan the worry was that she might have normal pressure hydrocephalus which prompted a lumbar puncture with a pre and post physical therapy evaluations. on the lumbar puncture they could not get an opening pressure but were able to draw 15 mL of CSF which was clear and the results are still pending from that. her pre and post physical therapy assessment did reveal a significant improvement after the high volume lumbar puncture leading to the possibility of at least some of her problem being related to normal pressure hydrocephalus. since we do not treat the problem here we will need to look into possible neurosurgeon input down the road but for now the PT and OT consultants felt that she needed some rehab and so we are sending her to skilled care to see if we can improve her functional status to help her caregivers into keep her at her homeActive Issues Requiring Follow-up:Follow up with the Neurosurgery depending on what our neurology doctors recommend on their final consult for consideration of ventriculoperitoneal shunt New Medications: NONEDiscontinued medications: dicyclomineDose adjusted Medications: NONE PCP [place] Vazquez is daughter Teresa brice in [place] ---11/08/24Bemeng is sitting in her bedside chair this afternoon. She is not a good historian - not clear on details of her hospitalization, medical history or medications. She feels well, a bit weak but without specific complaints or concerns. She lives alone in a home in [place] - does have a caregiver a few days/week. She is typically IND with mobility and ADLs. No nursing concerns.---11/09/24Bettmeng is seated in her recliner, visiting with a friend. She is a fair historian with forgetfulness, denies pain or concerns, simply notes she is weak and wants to work on her strength. We discuss her use of Seroquel. She does not recognize the name of the medication but tells me she takes a pink pill at night to help her sleep, likely Seroquel. We discuss the side effects of this medication and that we may want to trial alternative medications while she is here with us. She is open to this idea at this time. VSS. Staff is without concerns today. Per therapy notes = Patient ambulated 100 ft on level surfaces with a FWW, requiring CGA. Patient requires cueing for safe AD management due to path deviations. Patient performed sit to stand and pivot transfers: CGA-SBA with cueing for hand placement.---11/13/24Bett y is sitting up in her bedside chair this evening. She is doing well with therapy - AMB 200 feet x 2 today / CGA with FWW, SBA for STS and functional mobility with OT. D/C is scheduled for 11/28. No new complaints or concerns. No nursing concerns. Vitals stable.---11/16/24Besavannah is doing well, seated in her recliner, initially sleeping but awakens to my voice. She tells me therapy is going well, she denies any dizziness or light headedness, no troubles with ambulation. VSS. Staff is without concerns but does request I call Charlene's daughter Joyce as she had some questions regarding NS follow up. I reach out and let her know that, per Dr. Doss's discharge summary, she will f/u with NS as OP to further assess whether she would be a NAPHTHALENE STILL OPERATOR shunt candidate. She tells me that neurology had expressed they didn't think she would be, to which I respond they will likely just do therapeutic LPs in the future but we also discussed the infection risk that would come along with this. She expresses understanding and plan sto f/u with Dr. Doss upon Charlene's discharge to discuss further and receive referral to his NS of choice. Joyce is otherwise without concerns for her mother at this point. Per therapy notes = Patient ambulated 200 ft on level surfaces with a FWW, requiring SBA-CGA. Pt required cueing for navigation. Pt performed sit to stand and pivot transfers requiring CGA-SBA.---11/21/24Bettmeng is seated in her recliner in her room, doing well, reports her therapy is going well and she feels she is making good progress. VSS. Staff is without concerns today. Per therapy notes = Patient ambulated 220 ft x2 on level surfaces with a FWW, requiring SBA. Cueing for navigation.---11/23/24Bet ty is doing well today, seated in her recliner, feels her therapy continues to go well, is without concerns or pain to report today. VSS. Staff is without concerns today. Per therapy notes = Conducted gait training with FWW 200' SBA cues for direction and to keep AD on the floor. Tends to picker and sorter load and unload and carry AD.---11/27/24Bettmeng is doing very well today, resting comfortably in her recliner in her room, without concerns or pain to report today. She will discharge home tomorrow with [facility] -- is without concerns regarding her discharge plans and thinks she will do well. VSS. Staff is without concerns at this time. Jeannette Plaza, GEE [address] [facility], [place], [address], [facility] [place] [facility] 11/27/2024 13:00:04 OBGyn Episode No OBEpisode recorded.
--- OUTSIDE RECORDS SUMMARY | 2025-02-07 18:09 | XMS_ITS | Continuity of Care Document ---
Author Organization [facility] ical Jakob, [facility] Address [address] [place] [address] Care Team Providers Care Carpenter General Name Role Phone [facility] FAX OTHER [place] [facility] Primary Care Provider [phone] Assessment No assessment recorded. Plan of Treatment Reminders Order Date Submit [...] Modified By Organization Details Last Modified Time 11/21/2024 [id number] I spent 36 minutes providing care to the patient today. More than 50% of that time was spent in discussing the expected course of the disease, discussing prognosis, coordinating care and counseling of the patient/family. Not available 11/21/2024 16:46:33 Reason for Referral None Reported. Results Created Date Observation Date Name Description Value Unit Range Abnormal Flag Note LastModifiedBy Organization Detail LastModifiedTime Result Notes None recorded. Medical Equipment None Reported. Allergies Allergen ID Allergen Name Allergen Category Reaction Reaction Severity Criticality Documentation Date Start Date Code Code System Note Provider Name and Address Organization Details Recorded Time 15712 wasp venoms environme nt Not available Not available Not available 11/08/2024 28563 RxNorm Herbert rodriguez [facility] 02:15:53 Medications Name Sig Start Date Stop [...] Available No t Available Vitals Date Recorded Body height Heart rate Body temperature Respiratory rate Oxygen saturation Body mass index (BMI) Body weight Systolic And Diastolic Provider Name and Address Organization Details Last Updated DateTime 162.56 cm 66 /min 97.9 [degF] 18 /min 96 % 18.7 kg/m2 06569.5 7 g 108/53 mm[Hg] Jeannette Plaza, GEE [address] [place], [address], [facility] 15:57:13 Social History Question Answer Notes LastModified by Organizat ion Details LastModified Time Tobacco Smoking Status Never Smoker [place] [facility], [place] - [facility] 11/13/2024 01:12:09 What Is Your Code Status? DNR [email or web address] Information not available 11/08/2024 Sex: Unknown Functional Status Question Answer Note LastModified by Organizat ion Details LastModified Time Do you use any [...] ICD10 Code Diagnosis IMO Codes Diagnosis Note [id number] Molly Nguyen, DO [address] [address] 11/08/2024 23:10:20 11/17/2024 22:17:51 Alzheimer's disease 33159934 G30.9 F02.B0 3500436029 continue ariceptST to followsupp ortive measures Normal pre ssure hydrocephalus 66149401 G91.2 65611 s/p therapeuti c LP with some reported functional improvemen tf/u with NS as outpatient to further discuss shunt placement Essential hypertension 48943222 I10 56930 continue lisinopril trend pressures and adjust meds as clinically indicated Acquired hypothyroidism 988589663 E03.9 69092 presumed stable - continue synthroidw ill check thyroid studies with next lab draw Allergic rhinitis 721618 04 J30.89 3896110282 trial of zyrtec prn Primary insomnia 7796294 F51.01 61817 has been treated with seroquel for quite [...] and d/c Senile osteoporosis 1804 0001 M81.0 9484341 continue outpatient infusions of proliacont inue vitamin D replacemen t Hyperlipidemia 60257275 E78.5 45010070 previously treated with statin therapy but this has been stopped per PCP as benefits are likely very limited at this point Moderate p rotein energy malnutrition 071339310 E44.[address] follow while heretrend weightsdie tary supplement s as tolerated Syncope 356440478 R55 745844331 w/u during her inpatient stay was relatively negativeof note, she has a history of same and is followed by cardiology related to this, Dr. Fran Dao appointmen t is scheduled for onito r clinically Physical deconditioning 6869092539 9102 R53.81 802075 related to advanced age, dementia, recent hospitaliz ation, comorbidit iestherapi es have been initiated - goal is for her to return home with family support upon d/c from [facility] [id number] Molly Nguyen, DO [facility] [address] [place] [address] 11/09/2024 10:48:37 11/17/2024 22:16:36 Syncope 826790040 R55 432976180 w/u during her inpatient stay was relatively negative.O f note, she has a history of same and is followed by cardiology related to this, Dr. Fran Cain. Next appointmen t on 12/28.Monit or clinically . Alzheimer's disease 2692 9004 G30.9 F02.B0 3953498585 Stable, no concerns with behaviors at present. Continue Aricept.ST to follow.Con tinue supportive measures.P CP to consider tapering off Seroquel and trialling alternativ e medication for insomnia if family in agreement. Mirtazapin e would be a good option. Normal pre ssure hydrocephalus 84530824 G91.2 55362 s/p therapeuti c LP with some reported functional improvemen t.F/U with NS as outpatient to further discuss shunt placement. Essential hypertension 33346283 I10 27647 Stable. Continue Lisinopril .Continue to trend blood pressures, monitor lytes and renal function, and adjust meds as clinically indicated. Acquired hypothyroidism 121547278 E03.9 35358 Presumed stable. Continue Synthroid. Checking thyroid studies with next lab draw. Allergic rhinitis 828815 04 J30.89 4596049862 Changed Zyrtec to PRN. Monitor symptoms. Primary insomnia 2087571 F51.01 17925 SEE ABOVE... Senile osteoporosis 1804 0001 M81.0 0576956 Stable. Continue outpatient infusions of Prolia.Con tinue vitamin D replacemen t. Hyperlipidemia 05097718 E78.5 61982134 Previously treated with statin therapy but this has been stopped per PCP as benefits are likely very limited at this point. Moderate p rotein energy malnutrition 435865649 E44.[address] follow while here.Trend weights.Di etary supplement s as tolerated. Physical deconditioning 6280876500 9102 R53.81 638750 Related to advanced age, dementia, recent hospitaliz ation, comorbidit ies.Contin ue therapies and monitor progress. Goal is for her to return home with family support upon d/c from SNF. [id number] Molly Nguyen, DO [facility] [address] [place] [address] 11/13/2024 21:24:30 11/17/2024 22:18:35 Syncope 539112056 R55 042312287 w/u during her inpatient stay was relatively negativeof note, she has a history of same and is followed by cardiology related to this, Dr. Fran Dao appointmen t is scheduled for onito r clinically Alzheimer's disease 2692 9004 G30.9 F02.B0 5473865073 continue ariceptST followingc ontinue supportive measures Normal pre ssure hydrocephalus 46838554 G91.2 22291 s/p therapeuti c LP with some reported functional improvemen tf/u with NS as outpatient to further discuss shunt placement Essential hypertension 62497894 I10 92179 continue lisinopril trend pressures and adjust meds as clinically indicated Acquired hypothyroidism 379906604 E03.9 68732 presumed stable - continue synthroidw ill check thyroid studies with next lab draw Allergic rhinitis 989375 04 J30.89 0727635719 continue zyrtec prn - no reported increase in symptoms since changing to prn Primary insomnia 5988889 F51.01 67351 has been treated with seroquel for quite [...] and d/c Senile osteoporosis 1804 0001 M81.0 3336985 continue outpatient infusions of proliacont inue vitamin D replacemen t Hyperlipidemia 94392283 E78.5 38118198 previously treated with statin therapy but this has been stopped per PCP as benefits are likely very limited at this point Moderate p rotein energy malnutrition 328442465 E44.[address] follow while heretrend weightsdie tary supplement s as tolerated Physical deconditioning 6611713199 9102 R53.81 093493 related to advanced age, dementia, recent hospitaliz ation, comorbidit iestherapi es continue - goal is for her to return home with family support upon d/c from SNF - d/c is tentativel y scheduled for 11/28 although suspect she may be ready for transition to a lower level of care prior to this raj taveras current functional measures [id number] Molly Nguyen, [address] [address] 11/16/2024 12:51:45 11/17/2024 22:17:11 Syncope 454111450 R55 533239751 w/u during her inpatient stay was relatively negative.O f note, she has a history of same and is followed by cardiology related to this, Dr. Fran Cain. Next appointmen t on 12/28.Monit or clinically . Normal pre ssure hydrocephalus 34926532 G91.2 43570 s/p therapeuti c LP with some reported functional improvemen t.Neurolog y questioned whether she would be a good candidate for a HOP STRAINER shunt and NS was not available at the hospital, so she will f/u as OP with NS to discuss further. Essential hypertension 64933621 I10 60418 Stable. Continue Lisinopril .Continue to trend blood pressures, monitor lytes and renal function, and adjust meds as clinically indicated. Hyperlipidemia 33326966 E78.5 85888260 Previously treated with statin therapy but this has been stopped per PCP as benefits are likely very limited at this point. Alzheimer's disease 2692 9004 G30.9 F02.B0 9236623101 Stable, no concerns with behaviors at present. Continue Aricept.ST to follow.Con tinue supportive measures.P CP to consider tapering off Seroquel and trialling alternativ e medication for insomnia if family in agreement. Mirtazapin e would be a good option. Primary insomnia 0550800 F51.01 88902 SEE ABOVE... Acquired hypothyroidism 512814232 E03.9 72022 Presumed stable. Continue Synthroid. Checking thyroid studies with next lab draw. Senile osteoporosis 1804 0001 M81.0 8633045 Stable. Continue outpatient infusions of Prolia.Con tinue vitamin D replacemen t. Allergic rhinitis 382554 04 J30.89 5537675661 Changed Zyrtec to PRN. Monitor symptoms. Moderate p rotein energy malnutrition 348369419 E44.[address] follow while here.Trend weights.Di etary supplement s as tolerated. Physical deconditioning 2675144803 9102 R53.81 392726 Related to advanced age, dementia, recent hospitaliz ation, comorbidit ies.Contin ue therapies and monitor progress. Goal is for her to return home with family support upon d/c from SNF. [id number] Molly Nguyen, [address] [address] 11/21/2024 11:22:42 11/24/2024 22:29:00 Syncope 131595469 R55 775458037 w/u during her inpatient stay was relatively negative.O f note, she has a history of same and is followed by cardiology related to this, Dr. Fran Cain. Next appointmen t on 12/28.Monit or clinically . Normal pre ssure hydrocephalus 49688910 G91.2 62218 s/p therapeuti c LP with some reported functional improvemen t.Neurolog y questioned whether she would be a good candidate for a HOP STRAINER shunt and NS was not available at the hospital, so she will f/u as OP with NS to discuss further. Essential hypertension 55251723 I10 65984 Stable. Continue Lisinopril .Continue to trend blood pressures, monitor lytes and renal function, and adjust meds as clinically indicated. Hyperlipidemia 88952695 E78.5 92919480 Previously treated with statin therapy but this has been stopped per PCP as benefits are likely very limited at this point. Alzheimer's disease 2692 9004 G30.9 F02.B0 0531268768 Stable, no concerns with behaviors at present. Continue Aricept.ST to follow.Con tinue supportive measures.P CP to consider tapering off Seroquel and trialling alternativ e medication for insomnia if family in agreement. Mirtazapin e would be a good option. Primary insomnia 8630718 F51.01 76626 SEE ABOVE... Acquired hypothyroidism 648051004 E03.9 49461 Presumed stable. Continue Synthroid. Checking thyroid studies with next lab draw. Senile osteoporosis 1804 0001 M81.0 7523534 Stable. Continue outpatient infusions of Prolia.Con tinue vitamin D replacemen t. Allergic rhinitis 459691 04 J30.89 7735657821 Changed Zyrtec to PRN. Monitor symptoms. Moderate p rotein energy malnutrition 624255645 E44.[address] follow while here.Trend weights.Di etary supplement s as tolerated. Physical deconditioning 4647543137 9102 R53.81 835255 Related to advanced age, dementia, recent hospitaliz ation, comorbidit ies.Contin ue therapies and monitor progress. Goal is for her to return home with family support upon d/c from SNF. Health Concerns Section Related Observation LastModified by Organization Detai ls LastModified Time None Recorded Concern Status LastModified by Organization Details LastModified Time None Recorded Payers Encounter Date Sequence Insurance Name Policy Number Policy Velazco Covered Member ID Velazco Member ID Guarantor Name 11/21/2024 2 FOR LIFE ( - MEDICARE SUPPLEMENT) Charlene Fontana [id number] Charlene Meltontman 11/21/2024 1 [employer] (MEDICARE) Charlene Fontana [id number] Charlene Meltontman Notes Date Note Type Note Provider Name and Address Organization Details Recorded Time 11/21/2024 text/html F/U syncope, questionable normal pressure hydrocephalus s/p LP, deconditioning/weak ness, and chronic medical conditions.---Charlene is sitting in her bedside chair this afternoon. She is not a good historian - not clear on details of her hospitalization, medical history or medications. She feels well, a bit weak but without specific complaints or concerns. She lives alone in a home in [place] - does have a caregiver a few days/week. She is typically IND with mobility and ADLs. No nursing concerns.---11/09/24 Charlene is seated in her recliner, visiting with [...] pivot transfers: CGA-SBA with cueing for hand placement.---Charlene is sitting up in her bedside chair this evening. She is doing well with therapy - AMB 200 feet x 2 today / CGA with FWW, SBA for STS and functional mobility with OT. D/C is scheduled for 11/28. No new complaints or concerns. No nursing concerns. Vitals stable.---11/16/24Hany nuñez is doing well, seated in her recliner, [...] further assess whether she would be a HOP STRAINER shunt candidate. She tells me that neurology [...] sit to stand and pivot transfers requiring CGA-SBA.---11/21/24 Charlene is seated in her recliner in her room, doing well, reports her therapy is going well and she feels she is making good progress. VSS. Staff is without concerns today. Per therapy notes = Patient ambulated 220 ft x2 on level surfaces with a FWW, requiring SBA. [place] [address] [facility], [place], [address], [facility] - [facility] 11/21/2024 16:47:13 OBGyn Episode No OBEpisode recorded.
--- OUTSIDE RECORDS SUMMARY | 2025-02-07 18:09 | XMS_ITS | Continuity of Care Document ---
Author Organization [employer] [facility] ical Jakob, [facility] Address [address] [place] [address] Care Team Providers Care Mix Mill Tender Name Role Phone [facility] FAX OTHER [place] [facility] Primary Care Provider Assessment No assessment recorded. Plan of Treatment [...] Modified By Organization Details Last Modified Time 11/16/2024 [id number] I spent 35 minutes providing care to the patient today. More than 50% of that time was spent in discussing the expected course of the disease, discussing prognosis, coordinating care and counseling of the patient/family. Not available 11/16/2024 15:32:26 Reason for Referral None Reported. Results Created Date Observation Date Name Description Value Unit Range Abnormal Flag Note LastModifiedBy Organization Detail LastModifiedTime Result Notes None recorded. Medical Equipment None Reported. Allergies Allergen ID Allergen Name Allergen Category Reaction Reaction Severity Criticality Documentation Date Start Date Code Code System Note Provider Name and Address Organization Details Recorded Time 44484 wasp venoms environme nt Not available Not available Not available 11/08/2024 24784 RxNorm Herbert rodriguez [facility] [employer] [facility] 02:15:53 Medications Name Sig Start Date [...] Organization Details Last Updated DateTime 162.56 cm 85 /min 97.3 [degF] 16 /min 95 % 18 kg/m2 45618.7 6 g 133/54 mm[Hg] Jeannette Plaza, [place] [address] [address] [place], [address], [place] - [facility] 15:14:53 Social History Question Answer Notes LastModified by Organizat ion Details LastModified Time Tobacco Smoking Status Never Smoker [place] null, [place] - [facility] 11/13/2024 01:12:09 What Is Your [...] available 2024 01:13:11 Medical History Condition Response Syncope Y Hyperlipidemia Y Allergic Rhinitis Y Hypothyroidism Y Dementia w/Behavioral Disturbance Y Alzheimer's Disease Y Gynecological HistoryNo gynecological history recorded. Obstetrics History GPAL:G 0 P 0 0 0 0 Past Encounters Encounter ID Performer Location Encounter Start Date Encounter Closed Date Diagnosis/Indication Diagnosis SNOMED-CT Code Diagnosis ICD10 Code Diagnosis IMO Codes Diagnosis Note [id number] Molly Nguyen, [place] [address] [place] [address] 11/08/2024 23:10:20 11/17/2024 22:17:51 Alzheimer's disease 21733751 G30.9 F02.B0 7330781760 continue ariceptST to followsupp ortive measures Normal pre ssure hydrocephalus 18296371 G91.2 54231 s/p therapeuti c LP with some reported functional improvemen tf/u with NS as outpatient to further discuss shunt placement Essential hypertension 00045447 I10 74076 continue lisinopril trend pressures and adjust meds as clinically indicated Acquired hypothyroidism 487485633 E03.9 82385 presumed stable - continue synthroidw ill check thyroid studies with next lab draw Allergic rhinitis 712990 04 J30.89 2364549913 trial of zyrtec prn Primary insomnia 8769059 F51.01 17829 has been treated with seroquel for quite [...] and d/c 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 Fran Dao appointmen t is scheduled for onito r clinically Physical deconditioning 8506096003 9102 R53.81 101630 related to advanced age, dementia, recent hospitaliz ation, comorbidit iestherapi es have been initiated - goal is for her to return home with family support upon d/c from [facility] [id number] Molly Wendy, DO [facility] [address] [place] [address] 11/09/2024 10:48:37 11/17/2024 22:16:36 Syncope 561436902 R55 573358312 w/u during her inpatient stay was relatively negative.O f note, she has a history of same and is followed by cardiology related to this, Dr. Fran Cain. Next appointmen t on 12/28.Monit or clinically . Alzheimer's disease 2692 9004 G30.9 F02.B0 7267251014 Stable, no concerns with behaviors at present. Continue Aricept.ST to follow.Con tinue supportive measures.P CP to consider tapering off Seroquel and trialling alternativ e medication for insomnia if family in agreement. Mirtazapin e would be a good option. Normal pre ssure hydrocephalus 91703807 G91.2 67898 s/p therapeuti c LP with some reported functional improvemen t.F/U with NS as outpatient to further discuss shunt placement. Essential hypertension 88650008 I10 84875 Stable. Continue Lisinopril .Continue to trend blood pressures, monitor lytes and renal function, and adjust meds as clinically indicated. Acquired hypothyroidism 028474930 E03.9 51011 Presumed stable. Continue Synthroid. Checking thyroid studies with next lab draw. Allergic rhinitis 506894 04 J30.89 9832753757 Changed Zyrtec to PRN. Monitor symptoms. Primary insomnia 4620970 F51.01 52356 SEE ABOVE... Senile osteoporosis 1804 0001 M81.0 8136560 Stable. Continue outpatient infusions of Prolia.Con tinue vitamin D replacemen t. Hyperlipidemia 20398743 E78.5 77897027 Previously treated with statin therapy but this has been stopped per PCP as benefits are likely very limited at this point. Moderate p rotein energy malnutrition 013991510 E44.[address] follow while here.Trend weights.Di etary supplement s as tolerated. Physical deconditioning 5173674909 9102 R53.81 057384 Related to advanced age, dementia, recent hospitaliz ation, comorbidit ies.Contin ue therapies and monitor progress. Goal is for her to return home with family support upon d/c from SNF. [id number] Molly Nguyen, DO [facility] [address] [place] [address] 11/13/2024 21:24:30 11/17/2024 22:18:35 Syncope 491981510 R55 [id number] w/u during her inpatient stay was relatively negativeof note, she has a history of same and is followed by cardiology related to this, Dr. Fran Dao appointmen t is scheduled for onito r clinically Alzheimer's disease 2692 9004 G30.9 F02.B0 4526477098 continue ariceptST followingc ontinue supportive measures Normal pre ssure hydrocephalus 00866972 G91.2 16177 s/p therapeuti c LP with some reported functional improvemen tf/u with NS as outpatient to further discuss shunt placement Essential hypertension 14307078 I10 11754 continue lisinopril trend pressures and adjust meds as clinically indicated Acquired hypothyroidism 343612045 E03.9 79117 presumed stable - continue synthroidw ill check thyroid studies with next lab draw Allergic rhinitis 155376 04 J30.89 7425523329 continue zyrtec prn - no reported increase in symptoms since changing to prn Primary insomnia 4648850 F51.01 74257 has been treated with seroquel for quite [...] and d/c Senile osteoporosis 1804 0001 M81.0 8303586 continue outpatient infusions of proliacont inue vitamin D replacemen t Hyperlipidemia 73925984 E78.5 99218216 previously treated with statin therapy but this has been stopped per PCP as benefits are likely very limited at this point Moderate p rotein energy malnutrition 303810269 E44.[address] follow while heretrend weightsdie tary supplement s as tolerated Physical deconditioning 4090904250 9102 R53.81 249865 related to advanced age, dementia, recent hospitaliz ation, comorbidit iestherapi es continue - goal is for her to return home with family support upon d/c from SNF - d/c is tentativel y scheduled for 11/28 although suspect she may be ready for transition to a lower level of care prior to this considerollie g current functional measures [id number] Molly Nguyen, DO [address] [address] 11/16/2024 12:51:45 11/17/2024 22:17:11 Syncope 853586033 R55 [id number] w/u during her inpatient stay was relatively negative.O f note, she has a history of same and is followed by cardiology related to this, Dr. Fran Cain. Next appointmen t on 12/28.Monit or clinically . Normal pre ssure hydrocephalus 62381342 G91.2 90194 s/p therapeuti c LP with some reported functional improvemen t.Neurolog y questioned whether she would be a good candidate for a EMAIL MANAGER shunt and NS was not available at the hospital, so she will f/u as OP with NS to discuss further. Essential hypertension 80926468 I10 21019 Stable. Continue Lisinopril .Continue to trend blood pressures, monitor lytes and renal function, and adjust meds as clinically indicated. Hyperlipidemia 53234561 E78.5 83071199 Previously treated with statin therapy but this has been stopped per PCP as benefits are likely very limited at this point. Alzheimer's disease 2692 9004 G30.9 F02.B0 9682814246 Stable, no concerns with behaviors at present. Continue Aricept.ST to follow.Con tinue supportive measures.P CP to consider tapering off Seroquel and trialling alternativ e medication for insomnia if family in agreement. Mirtazapin e would be a good option. Primary insomnia 1811379 F51.01 51619 SEE ABOVE... Acquired hypothyroidism 651487136 E03.9 75106 Presumed stable. Continue Synthroid. Checking thyroid studies with next lab draw. Senile osteoporosis 1804 0001 M81.0 3976071 Stable. Continue outpatient infusions of Prolia.Con tinue vitamin D replacemen t. Allergic rhinitis 262150 04 J30.89 6434646904 Changed Zyrtec to PRN. Monitor symptoms. Moderate p rotein energy malnutrition 073475087 E44.[address] follow while here.Trend weights.Di etary supplement s as tolerated. Physical deconditioning 7758314115 9102 R53.81 152220 Related to advanced age, dementia, recent hospitaliz [...] Member ID Velaz[employer] Member ID Guarantor Name 11/16/2024 2 FOR LIFE ( - MEDICARE SUPPLEMENT) Charlene Fontana [id number] Charlene Gamezan 11/16/2024 1 [place] Charlene Meltontman [id number] Charlene Fontana Notes Date Note Type Note Provider Name and Address Organization Details Recorded Time 11/16/2024 text/html F/U syncope, questionable normal pressure hydrocephalus s/p LP, deconditioning/weak ness, and chronic medical conditions.---Charlene is sitting in her bedside chair this afternoon. She is not a good historian - not clear on details of her hospitalization, medical history or medications. She feels well, a bit weak but without specific complaints or concerns. She lives alone in a home in [place] - does have a caregiver a few [...] pivot transfers: CGA-SBA with cueing for hand placement.---Besavannah is sitting up in her bedside chair this evening. She is doing well with therapy - AMB 200 feet x 2 today / CGA with FWW, SBA for STS and functional mobility with OT. D/C is scheduled for 11/28. No new complaints or concerns. No nursing concerns. Vitals stable.---11/16/24Be savannah is doing well, seated in her recliner, [...] further assess whether she would be a EMAIL MANAGER shunt candidate. She tells me that neurology [...] pivot transfers requiring CGA-SBA. Jeannette Plaza, [place] [address] [facility], [place], [address], [facility] 11/16/2024 15:32:35 OBGyn Episode No OBEpisode recorded.
--- OUTSIDE RECORDS SUMMARY | 2025-02-07 18:09 | XMS_ITS | Continuity of Care Document ---
Author Organization [place] [facility] Jakob, [facility] Address [address] [place] [address] Care Team Providers Care Manager Department Name Role Phone [facility] FAX OTHER [place] Primary Care Provider Assessment Encounter Date Assessment Date Assessment LastModified by Organization Details LastModified Time 11/08/2024 11/08/2024 f/u labs 11/15 (bmp, CBC, B12, TSH, free T4), change zyrtec to prn [email or web address] Not available 11/13/2024 05:11:55 Plan of Treatment Reminders Order Date Submit [...] Modified By Organization Details Last Modified Time 11/08/2024 [id number] I spent >50 minutes providing care to the patient today. More than 50% of that time was spent in discussing the expected course of the disease, discussing prognosis, coordinating care and counseling of the patient/family. I spent 16 minutes counseling and discussing advance directives and/or end of life care planning and decisions with the patient and surrogate today. I reviewed the current relevant diagnoses, treatment options, natural history, and prognosis and clarified the patient's goals of care. code status is DNR [email or web address] Not available 11/13/2024 05:18:10 Reason for Referral None Reported. Results Created Date Observation Date Name Description Value Unit Range Abnormal Flag Note LastModifiedBy Organization Detail LastModifiedTime Result Notes None recorded. Medical Equipment None Reported. Allergies Allergen ID Allergen Name Allergen Category Reaction Reaction Severity Criticality Documentation Date Start Date Code Code System Note Provider Name and Address Organization Details Recorded Time 94787 wasp venoms environme nt Not available Not available Not available 11/08/2024 27171 [facility] 02:[facility]53 Medications Name Sig Start Date Stop [...] Address Organization Details Last Updated DateTime 5 75 /min 97.6 [degF] 18 /min 97 % 48307.1 1 g 107/61 mm[[place]] [place] [address] [place], [address], [facility] 5 23:11:22 Date Recorded Heart rate Body temperature Respiratory rate Oxygen saturation Body weight Body mass index (BMI) Body height Systolic And Diastolic Provider Name and Address Organization Details Last Updated DateTime 5 61 /min 97.6 [degF] 16 /min 97 % 84376.1 4 g 17.5 kg/m2 162.56 cm 132/67 mm[Hg] Jeannette Plaza, [place] [address] [place], [address], [place] [facility] 16:13:37 Date Recorded Heart rate Body temperature Respiratory rate Oxygen saturation Body weight Systolic And Diastolic Provider Name and Address Organization Details Last Updated DateTime 69.98 /min 97.4 [degF] 16 /min 96 % 39664.9 2 g 122/51 mm[Hg] [place] [address] [place], [address], [place] - [facility] 22:35:00 Social History Question Answer Notes LastModified by [employer] Details LastModified Time Tobacco Smoking Status Never Smoker [place] Fu null, [place] - [facility] 11/13/2024 01:12:09 What Is Your Code Status? DNR [email or web address] Information not available 11/08/2024 Sex: Unknown Functional Status Question Answer Note LastModified by [employer] Details LastModified Time Do you use any [...] ICD10 Code Diagnosis IMO Codes Diagnosis Note [id number] Molly Nguyen DO [address] [address] [place] [address] 11/08/2024 23:10:20 11/17/2024 22:17:51 Alzheimer's disease 41450048 G30.9 F02.B0 9385678099 continue ariceptST to followsupp ortive measures Normal pre ssure hydrocephalus 20392190 G91.2 56209 s/p therapeuti c LP with some reported functional improvemen tf/u with NS as outpatient to further discuss shunt placement Essential hypertension 87048563 I10 94546 continue lisinopril trend pressures and adjust meds as clinically indicated Acquired hypothyroidism 099311797 E03.9 93549 presumed stable - continue synthroidw ill check thyroid studies with next lab draw Allergic rhinitis 142894 04 J30.89 1338247525 trial of zyrtec prn Primary insomnia 2858607 F51.01 63436 has been treated with seroquel for quite [...] and d/c Senile osteoporosis 1804 0001 M81.0 3588865 continue outpatient infusions of proliacont inue vitamin D replacemen t Hyperlipidemia 89701401 E78.5 08392021 previously treated with statin therapy but this has been stopped per PCP as benefits are likely very limited at this point Moderate p rotein energy malnutrition 863462324 E44.[address] follow while heretrend weightsdie tary supplement s as tolerated Syncope 477423300 R55 [id number] w/u during her inpatient stay was relatively negativeof note, she has a history of same and is followed by cardiology related to this, Dr. Fran Dao appointmen t is scheduled for onito r clinically Physical deconditioning 6776103075 9102 R53.81 294353 related to advanced age, dementia, recent hospitaliz ation, comorbidit iestherapi es have been initiated - goal is for her to return home with family support upon d/c from SNF Health Concerns Section Related Observation LastModified by Organization [employer] doshi LastModified Time None Recorded Concern Status LastModified by Organization Details LastModified Time None Recorded Payers Encounter Date Sequence Insurance Name Policy Number Policy Velazco Covered Member ID Velazco Member ID Guarantor Name 11/08/2024 2 FOR LIFE ( - MEDICARE SUPPLEMENT) Charlene Fontana [id number] Charlene Fontana 11/08/2024 1 [place] Charlene Fontana [id number] Charlene Fontana Notes Date Note Type Note Provider Name and Address Organization Details Recorded Time 5 text/html 89 Y/O female with a history of dementia, HTN, hypothyroidism, allergic rhinitis, osteoporosis and HLD admitted to [facility] for post acute rehab subsequent to an inpatient stay at [facility] 11/03-11/07/2024 related to syncope. Per discharge summary: The patient was brought to the hospital by [...] Medications: NONEDiscontinued medications: dicyclomineDose adjusted Medications: NONE Charlene is sitting in her bedside chair this afternoon. She is not a good historian - not clear on details of her hospitalization, medical history or medications. She feels well, a bit weak but without specific complaints or concerns. She lives alone in a home in [place] - does have a caregiver a few days/week. She is typically IND with mobility and ADLs. No nursing concerns. PCP [place] Vazquez is daughter Joyce - called this evening to confirm code status, discuss meds and plan [place]pharm[place] [address] [place], [address], [facility] 11/13/2024 05:20:56 5 text/html F/U syncope, questionable normal pressure hydrocephalus s/p LP, deconditioning/weakness, and chronic medical conditions.---11/08/24Chaitanya fan is sitting in her bedside chair this afternoon. She is not a good historian - not clear on details of her hospitalization, medical history or medications. She feels well, a bit weak but without specific complaints or concerns. She lives alone in a home in [place] - does have a caregiver a few [...] pivot transfers: CGA-SBA with cueing [place] [address] [place], [address], [facility] 11/16/2024 10:35:47 5 text/html f/u syncope, dementia, NPH, physical [...] nursing concerns[place] [address] [facility], [place], [address], [place] [facility] 11/15/2024 06:32:34 OBGyn Episode No OBEpisode recorded.
--- NOTE | 2025-02-07 18:10 | PC.NURSE ---
attempted to call report to [facility] at 1719 and 1809, was told the nurse was busy and she will call back when done with med pass
--- OUTSIDE RECORDS SUMMARY | 2025-02-07 18:10 | XMS_ITS | Continuity of Care Document ---
Author Organization [facility] Jakob, SHAZIA [facility] Address [address] [place] [address] Care Team Providers Care Patient'S Librarian Name Role Phone [facility] FAX OTHER [place] [facility] Primary Care Provider [phone] Assessment Encounter Date Assessment Date Assessment LastModified by Organization Details LastModified Time 11/13/2024 11/13/2024 f/u labs 11/15 (bmp, CBC, B12, TSH, free T4) [email or web address] Not available 11/15/2024 06:29:52 Plan of Treatment Reminders Order Date Submit [...] By Organization Details Last Modified Time 11/13/2024 [id number] I spent 32 minutes providing care to the patient today. More than 50% of that time was spent in discussing the expected course of the disease, discussing prognosis, coordinating care and counseling of the patient/family. [email or web address] Not available 11/15/2024 06:32:06 Reason for Referral None Reported. Results Created Date Observation Date Name Description Value Unit Range Abnormal Flag Note LastModifiedBy Organization Detail LastModifiedTime Result Notes None recorded. Medical Equipment None Reported. Allergies Allergen ID Allergen Name Allergen Category Reaction Reaction Severity Criticality Documentation Date Start Date Code Code System Note Provider Name and Address Organization Details Recorded Time 32132 wasp venoms environme nt Not available Not available Not available 11/08/2024 27189 RxNorm Herbert rodriguez [facility] 02:15:53 Medications Name Sig Start Date Stop [...] /min 97.4 [degF] 16 /min 96 % 08911.9 2 g 122/51 mm[[place]] [place] [address] [place], [address], [place] - [facility] 22:35:00 Social History Question Answer Notes LastModified by [employer] Details LastModified Time Tobacco Smoking Status Never Smoker [place] null, [place] - [facility] 11/13/2024 01:12:09 What Is Your Code Status? DNR [email or web address] Information not available 11/08/2024 Sex: Unknown Functional Status Question Answer Note LastModified by [employer] Details LastModified Time Do you use any [...] ICD10 Code Diagnosis IMO Codes Diagnosis Note [id number] Molly Nguyen, [place] [address] [place] [address] 11/08/2024 23:10:20 11/17/2024 22:17:51 Alzheimer's disease 18454955 G30.9 F02.B0 8050531933 continue ariceptST to followsupp ortive measures Normal pre ssure hydrocephalus 28451369 G91.2 98642 s/p therapeuti c LP with some reported functional improvemen tf/u with NS as outpatient to further discuss shunt placement Essential hypertension 20180146 I10 10342 continue lisinopril trend pressures and adjust meds as clinically indicated Acquired hypothyroidism 783112093 E03.9 40398 presumed stable - continue synthroidw ill check thyroid studies with next lab draw Allergic rhinitis 073834 04 J30.89 7147731330 trial of zyrtec prn Primary insomnia 0859246 F51.01 38884 has been treated with seroquel for quite [...] and d/c Senile osteoporosis 1804 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 Fran Dao appointmen t is scheduled for onito r clinically Physical deconditioning 5346462214 9102 R53.81 397875 related to advanced age, dementia, recent hospitaliz ation, comorbidit iestherapi es have been initiated - goal is for her to return home with family support upon d/c from [facility] [id number] Molly Nguyen, [address] [place] [address] 11/09/2024 10:48:37 11/17/2024 22:16:36 Syncope 406430416 R55 257033813 w/u during her inpatient stay was relatively negative.O f note, she has a history of same and is followed by cardiology related to this, Dr. Fran Cain. Next appointmen t on 12/28.Monit or clinically . Alzheimer's disease 2692 9004 G30.9 F02.B0 0328104278 Stable, no concerns with behaviors at present. Continue Aricept.ST to follow.Con tinue supportive measures.P CP to consider tapering off Seroquel and trialling alternativ e medication for insomnia if family in agreement. Mirtazapin e would be a good option. Normal pre ssure hydrocephalus 49400346 G91.2 40249 s/p therapeuti c LP with some reported functional improvemen t.F/U with NS as outpatient to further discuss shunt placement. Essential hypertension 61101320 I10 83518 Stable. Continue Lisinopril .Continue to trend blood pressures, monitor lytes and renal function, and adjust meds as clinically indicated. Acquired hypothyroidism 100553550 E03.9 05831 Presumed stable. Continue Synthroid. Checking thyroid studies with next lab draw. Allergic rhinitis 656661 04 J30.89 2906377680 Changed Zyrtec to PRN. Monitor symptoms. Primary insomnia 4331180 F51.01 86034 SEE ABOVE... Senile osteoporosis 1804 0001 M81.0 9326491 Stable. Continue outpatient infusions of Prolia.Con tinue vitamin D replacemen t. Hyperlipidemia 93179468 E78.5 15480615 Previously treated with statin therapy but this has been stopped per PCP as benefits are likely very limited at this point. Moderate p rotein energy malnutrition 131122638 E44.[address] follow while here.Trend weights.Di etary supplement s as tolerated. Physical deconditioning 1098959016 9102 R53.81 944356 Related to advanced age, dementia, recent hospitaliz ation, comorbidit ies.Contin ue therapies and monitor progress. Goal is for her to return home with family support upon d/c from SNF. [id number] Molly Nguyen DO [address] [place] [address] 11/13/2024 21:24:30 11/17/2024 22:18:35 Syncope 748006787 R55 905132956 w/u during her inpatient stay was relatively negativeof note, she has a history of same and is followed by cardiology related to this, Dr. Fran Dao appointmen t is scheduled for onito r clinically Alzheimer's disease 2692 9004 G30.9 F02.B0 5484309580 continue ariceptST following ontinue supportive measures Normal pre ssure hydrocephalus 50140036 G91.2 12610 s/p therapeuti c LP with some reported functional improvemen tf/u with NS as outpatient to further discuss shunt placement Essential hypertension 50343951 I10 49400 continue lisinopril trend pressures and adjust meds as clinically indicated Acquired hypothyroidism 555639092 E03.9 06450 presumed stable - continue synthroidw ill check thyroid studies with next lab draw Allergic rhinitis 744127 04 J30.89 9834243205 continue zyrtec prn - no reported increase in symptoms since changing to prn Primary insomnia 2861441 F51.01 65743 has been treated with seroquel for quite [...] and d/c Senile osteoporosis 1804 0001 M81.0 4755496 continue outpatient infusions of proliacont inue vitamin D replacemen t Hyperlipidemia 41249443 E78.5 64565000 previously treated with statin therapy but this has been stopped per PCP as benefits are likely very limited at this point Moderate p rotein energy malnutrition 934430467 E44.[address] follow while heretrend weightsdie tary supplement s as tolerated Physical deconditioning 3623185561 9102 R53.81 554307 related to advanced age, dementia, recent hospitaliz ation, comorbidit iestherapi es continue - goal is for her to return home with family support upon d/c from SNF - d/c is tentativel y scheduled for 11/28 although suspect she may be ready for transition to a lower level of care prior to this raj taveras current functional measures Health Concerns Section Related Observation LastModified by Organization Detai ls LastModified Time None Recorded Concern Status LastModified by Organization Details LastModified Time None Recorded Payers Encounter Date Sequence Insurance Name Policy Number Policy Velaz[employer] Covered Member ID Velazco Member ID Guarantor Name 11/13/2024 2 FOR LIFE ( - MEDICARE SUPPLEMENT) Charlene Fontana [id number] Charlene Fontana 11/13/2024 1 [place] Charlene Fontana [id number] Charlene Fontana Notes Date Note Type Note Provider Name and Address Organization Details Recorded Time 11/13/2024 text/html f/u syncope, dementia, NPH, physical deconditioning and chronic medical conditions Charlene is sitting up in her bedside chair this evening. She is doing well with therapy - AMB 200 feet x 2 today / CGA with FWW, SBA for STS and functional mobility with OT. D/C is scheduled for 11/28. No new complaints or concerns. No nursing concerns[place] [address] [facility], [place], [address], [facility] [place] - [facility] 11/15/2024 06:32:34 OBGyn Episode No OBEpisode recorded.
--- OUTSIDE RECORDS SUMMARY | 2025-02-07 18:10 | XMS_ITS | Continuity of Care Document ---
Author Organization [facility] ical Jakob, [facility] Address [address] [place] [address] Care Team Providers Care Director Of Student Life Name Role Phone [facility] FAX OTHER [place] [facility] Primary Care Provider Assessment Encounter Date Assessment Date Assessment LastModified by Organization Details LastModified Time 11/09/2024 11/09/2024 F/U labs on 11/15. Not available 11/16/2024 10:35:32 Plan of Treatment Reminders Order Date Submit [...] Modified By Organization Details Last Modified Time 11/09/2024 [id number] I spent 35 minutes providing care to the patient today. More than 50% of that time was spent in discussing the expected course of the disease, discussing prognosis, coordinating care and counseling of the patient/family. [email or web address] Not available 11/16/2024 10:35:39 Reason for Referral None Reported. Results Created Date Observation Date Name Description Value Unit Range Abnormal Flag Note LastModifiedBy Organization Detail LastModifiedTime Result Notes None recorded. Medical Equipment None Reported. Allergies Allergen ID Allergen Name Allergen Category Reaction Reaction Severity Criticality Documentation Date Start Date Code Code System Note Provider Name and Address Organization Details Recorded Time 73399 wasp venoms environme nt Not available Not available Not available 11/08/2024 49414 RxNorm Herbert rodriguez [facility] 02:15:53 Medications Name Sig Start Date Stop [...] /min 97.6 [degF] 16 /min 97 % 32320.1 4 g 17.5 kg/m2 162.56 cm 132/67 mm[Hg] [place] [address] [place], [address] [facility] 16:13:37 Date Recorded Heart rate Body temperature Respiratory rate Oxygen saturation Body weight Systolic And Diastolic Provider Name and Address Organization Details Last Updated DateTime 5 69.98 /min 97.4 [degF] 16 /min 96 % 30050.9 2 g 122/51 mm[Hg] [place] [address] [place], [address], [facility] 22:35:00 Date Recorded Body height Heart rate Body temperature Respiratory rate Oxygen saturation Body mass index (BMI) Body weight Systolic And Diastolic Provider Name and Address Organization Details Last Updated DateTime 162.56 cm 85 /min 97.3 [degF] 16 /min 95 % 18 kg/m2 30162.7 6 g 133/54 mm[Hg] Jeannette Plaza, [place] [address] [place], [address], [place] - [facility] 15:14:53 Social History Question Answer Notes LastModified by [employer] Details LastModified Time Tobacco Smoking Status Never Smoker [place], [place] - [facility] 11/13/2024 01:12:09 What Is Your Code Status? DNR [email or web address] Information not available 11/08/2024 Sex: Unknown Functional Status Question Answer Note LastModified by [employer] Details LastModified Time Do you use any [...] Medical History Condition Response Alzheimer's Disease Y Allergic Rhinitis Y Syncope Y Hyperlipidemia Y Dementia w/Behavioral Disturbance Y Hypothyroidism Y Gynecological HistoryNo gynecological history recorded. Obstetrics History GPAL:G 0 P 0 0 0 0 Past Encounters Encounter ID Performer Location Encounter Start Date Encounter Closed Date Diagnosis/Indication Diagnosis SNOMED-CT Code Diagnosis ICD10 Code Diagnosis IMO Codes Diagnosis Note [id number] Molly Nguyen, [facility] [address] [place] [address] 11/08/2024 23:10:20 11/17/2024 22:17:51 Alzheimer's disease 07912302 G30.9 F02.B0 2477952719 continue ariceptST to followsupp ortive measures Normal pre ssure hydrocephalus 09427682 G91.2 83932 s/p therapeuti c LP with some reported functional improvemen tf/u with NS as outpatient to further discuss shunt placement Essential hypertension 45878842 I10 79557 continue lisinopril trend pressures and adjust meds as clinically indicated Acquired hypothyroidism 282511168 E03.9 95747 presumed stable - continue synthroidw ill check thyroid studies with next lab draw Allergic rhinitis 391449 04 J30.89 7511674492 trial of zyrtec prn Primary insomnia 3525584 F51.01 00067 has been treated with seroquel for quite [...] and d/c Senile osteoporosis 1804 0001 M81.0 8931855 continue outpatient infusions of proliacont inue vitamin D replacemen t Hyperlipidemia 86829990 E78.5 73953176 previously treated with statin therapy but this has been stopped per PCP as benefits are likely very limited at this point Moderate p rotein energy malnutrition 416504726 E44.[address] follow while heretrend weightsdie tary supplement s as tolerated Syncope 421142368 R55 220941318 w/u during her inpatient stay was relatively negativeof note, she has a history of same and is followed by cardiology related to this, Dr. Fran Dao appointmen t is scheduled for onito r clinically Physical deconditioning 1829886633 9102 R53.81 306311 related to advanced age, dementia, recent hospitaliz ation, comorbidit iestherapi es have been initiated - goal is for her to return home with family support upon d/c from [facility] [id number] Molly Nguyen DO [facility] [address] [place] [address] 11/09/2024 10:48:37 11/17/2024 22:16:36 Syncope 240996886 R55 152427111 w/u during her inpatient stay was relatively negative.O f note, she has a history of same and is followed by cardiology related to this, Dr. Fran Cain. Next appointmen t on 12/28.Monit or clinically . Alzheimer's disease 2692 9004 G30.9 F02.B0 1591698696 Stable, no concerns with behaviors at present. Continue Aricept.ST to follow.Con tinue supportive measures.P CP to consider tapering off Seroquel and trialling alternativ e medication for insomnia if family in agreement. Mirtazapin e would be a good option. Normal pre ssure hydrocephalus 85907513 G91.2 78631 s/p therapeuti c LP with some reported functional improvemen t.F/U with NS as outpatient to further discuss shunt placement. Essential hypertension 69950303 I10 46067 Stable. Continue Lisinopril .Continue to trend blood pressures, monitor lytes and renal function, and adjust meds as clinically indicated. Acquired hypothyroidism 621394590 E03.9 23197 Presumed stable. Continue Synthroid. Checking thyroid studies with next lab draw. Allergic rhinitis 432604 04 J30.89 7444894374 Changed Zyrtec to PRN. Monitor symptoms. Primary insomnia 2139786 F51.01 10136 SEE ABOVE... Senile osteoporosis 1804 0001 M81.0 7256243 Stable. Continue outpatient infusions of Prolia.Con tinue vitamin D replacemen t. Hyperlipidemia 12236454 E78.5 84621182 Previously treated with statin therapy but this has been stopped per PCP as benefits are likely very limited at this point. Moderate p rotein energy malnutrition 902199539 E44.[address] follow while here.Trend weights.Di etary supplement s as tolerated. Physical deconditioning 8503315205 9102 R53.81 924370 Related to advanced age, dementia, recent hospitaliz [...] Member ID Velazco Member ID Guarantor Name 11/09/2024 2 FOR LIFE ( - MEDICARE SUPPLEMENT) Charlene Fontana [id number] Charlene Fontana 11/09/2024 1 [place] Charlene Fontana [id number] Charlene Fontana Notes Date Note Type Note Provider Name and Address Organization Details Recorded Time 11/09/2024 text/html F/U syncope, questionable normal pressure hydrocephalus s/p LP, deconditioning/weakn ess, and chronic medical conditions.--- 5Bcheli is sitting in her bedside chair this afternoon. She is not a good historian - not clear on details of her hospitalization, medical history or medications. She feels well, a bit weak but without specific complaints or concerns. She lives alone in a home in [place] - does have a caregiver a few days/week. She is typically IND with mobility and ADLs. No nursing concerns.---11/09/24B cheli is seated in her recliner, visiting with [...] cueing [place] [address] [place], [address], [facility] 11/16/2024 10:35:47 11/13/2024 text/html f/u syncope, dementia, NPH, physical [...] nursing concerns[place] [address] [place], [address], [facility] 11/15/2024 06:32:34 11/16/2024 text/html F/U syncope, questionable normal pressure hydrocephalus s/p LP, deconditioning/weakn ess, and chronic medical conditions.--- 5Bcheli is sitting in her bedside chair this afternoon. She is not a good historian - not clear on details of her hospitalization, medical history or medications. She feels well, a bit weak but without specific complaints or concerns. She lives alone in a home in [place] - does have a caregiver a few days/week. She is typically IND with mobility and ADLs. No nursing concerns.---11/09/24B cheli is seated in her recliner, visiting with [...] pivot transfers: CGA-SBA with cueing for hand placement.--- 5Bcheli is sitting up in her bedside chair this evening. She is doing well with therapy - AMB 200 feet x 2 today / CGA with FWW, SBA for STS and functional mobility with OT. D/C is scheduled for 11/28. No new complaints or concerns. No nursing concerns. 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 She tells me that neurology [...] pivot transfers requiring CGA-SBA. Jeannette [place], [place] [address] [facility], [place], [address], [facility] [place] - [facility] 11/16/2024 15:32:35 OBGyn Episode No OBEpisode recorded.
--- OUTSIDE RECORDS SUMMARY | 2025-02-07 18:10 | XMS_ITS | Continuity of Care Document ---
Author Organization [place] [facility] Address [address] [place] [address] Care Team Providers Care Nurse Staff [facility] Name Role Phone [facility] FAX OTHER [place] [facility] Primary Care Provider Assessment Encounter Date Assessment Date Assessment LastModified by Organization Details LastModified Time 11/27/2024 11/27/2024 D/C to home tomorrow with [facility]. Not available 11/27/2024 12:57:22 Plan of Treatment [...] Modified By Organization Details Last Modified Time 11/27/2024 [id number] I spent 40 minutes providing care to [...] emergency room for new or worsening symptoms. Not available 11/27/2024 12:57:32 Reason for Referral None Reported. Results Created Date Observation Date Name Description Value Unit Range Abnormal Flag Note LastModifiedBy Organization Detail LastModifiedTime Result Notes None recorded. Medical Equipment None Reported. Allergies Allergen ID Allergen Name Allergen Category Reaction Reaction Severity Criticality Documentation Date Start Date Code Code System Note Provider Name and Address Organization Details Recorded Time 75332 wasp venoms environme nt Not available Not available Not available 11/08/2024 82334 RxNorm Herbert Hernandez [facility], [facility] 5 02:15:53 Medications Name Sig Start Date [...] Details Last Updated DateTime 5 162.56 cm 69 /min 97.5 [degF] 18 /min 97 % 18.4 kg/m2 00666.1 g 121/61 mm[Hg] [place] [address] [place], [address], [facility] 5 12:53:54 Social History Question Answer Notes LastModified by Organizat ion Details LastModified Time Tobacco Smoking Status Never Smoker [place] null, [place] [facility] [...] available 2024 01:13:11 Medical History Condition Response Hypothyroidism Y Alzheimer's Disease Y Syncope Y Hyperlipidemia Y Allergic Rhinitis Y Dementia w/Behavioral Disturbance Y Gynecological HistoryNo gynecological history recorded. Obstetrics History GPAL:G 0 P 0 0 0 0 Past Encounters Encounter ID Performer Location Encounter Start Date Encounter Closed Date Diagnosis/Indication Diagnosis SNOMED-CT Code Diagnosis ICD10 Code Diagnosis IMO Codes Diagnosis Note [id number] Molly Nguyen [address] [address] 11/08/2024 23:10:20 11/17/2024 22:17:51 Alzheimer's disease 73754709 G30.9 F02.B0 [id number] continue ariceptST to followsupp ortive measures Normal pre ssure hydrocephalus 32256036 G91.2 35654 s/p therapeuti c LP with some reported functional improvemen tf/u with NS as outpatient to further discuss shunt placement Essential hypertension 43117930 I10 42314 continue lisinopril trend pressures and adjust meds as clinically indicated Acquired hypothyroidism 575550867 E03.9 06619 presumed stable - continue synthroidw ill check thyroid studies with next lab draw Allergic rhinitis 311757 04 J30.89 4273514226 trial of zyrtec prn Primary insomnia 4691713 F51.01 18665 has been treated with seroquel for quite [...] and d/c Senile osteoporosis 1804 0001 M81.0 5477152 continue outpatient infusions of proliacont inue vitamin D replacemen t Hyperlipidemia 27384018 E78.5 03943658 previously treated with statin therapy but this has been stopped per PCP as benefits are likely very limited at this point Moderate p rotein energy malnutrition 655663363 E44.[address] follow while heretrend weightsdie tary supplement s as tolerated Syncope 386342163 R55 [id number] w/u during her inpatient stay was relatively negativeof note, she has a history of same and is followed by cardiology related to this, Dr. Fran Dao appointmen t is scheduled for onito r clinically Physical deconditioning 3372867039 9102 R53.81 798037 related to advanced age, dementia, recent hospitaliz ation, comorbidit iestherapi es have been initiated - goal is for her to return home with family support upon d/c from [facility] [id number] Molly Nguyen, [address] [address] 11/09/2024 10:48:37 11/17/2024 22:16:36 Syncope 785171371 R55 [id number] w/u during her inpatient stay was relatively negative.O f note, she has a history of same and is followed by cardiology related to this, Dr. Fran Cain. Next appointmen t on 12/28.Monit or clinically . Alzheimer's disease 2692 9004 G30.9 F02.B0 9097824198 Stable, no concerns with behaviors at present. Continue Aricept.ST to follow.Con tinue supportive measures.P CP to consider tapering off Seroquel and trialling alternativ e medication for insomnia if family in agreement. Mirtazapin e would be a good option. Normal pre ssure hydrocephalus 39847544 G91.2 04176 s/p therapeuti c LP with some reported functional improvemen t.F/U with NS as outpatient to further discuss shunt placement. Essential hypertension 72982154 I10 15090 Stable. Continue Lisinopril .Continue to trend blood pressures, monitor lytes and renal function, and adjust meds as clinically indicated. Acquired hypothyroidism 808763691 E03.9 46240 Presumed stable. Continue Synthroid. Checking thyroid studies with next lab draw. Allergic rhinitis 737719 04 J30.89 8104996769 Changed Zyrtec to PRN. Monitor symptoms. Primary insomnia 3677428 F51.01 66227 SEE ABOVE... Senile osteoporosis 1804 0001 M81.0 8545820 Stable. Continue outpatient infusions of Prolia.Con tinue vitamin D replacemen t. Hyperlipidemia 81952204 E78.5 47168565 Previously treated with statin therapy but this has been stopped per PCP as benefits are likely very limited at this point. Moderate p rotein energy malnutrition 306093971 E44.[address] follow while here.Trend weights.Di etary supplement s as tolerated. Physical deconditioning 9694844123 9102 R53.81 042257 Related to advanced age, dementia, recent hospitaliz ation, comorbidit ies.Contin ue therapies and monitor progress. Goal is for her to return home with family support upon d/c from SNF. [id number] Molly Nguyen, [address] [address] 11/13/2024 21:24:30 11/17/2024 22:18:35 Syncope 223134972 R55 [id number] w/u during her inpatient stay was relatively negativeof note, she has a history of same and is followed by cardiology related to this, Dr. Fran Dao appointmen t is scheduled for onito r clinically Alzheimer's disease 2692 9004 G30.9 F02.B0 1192851408 continue ariceptST followingc ontinue supportive measures Normal pre ssure hydrocephalus 63697572 G91.2 76370 s/p therapeuti c LP with some reported functional improvemen tf/u with NS as outpatient to further discuss shunt placement Essential hypertension 77862533 I10 88191 continue lisinopril trend pressures and adjust meds as clinically indicated Acquired hypothyroidism 405064941 E03.9 98083 presumed stable - continue synthroidw ill check thyroid studies with next lab draw Allergic rhinitis 415460 04 J30.89 1386625575 continue zyrtec prn - no reported increase in symptoms since changing to prn Primary insomnia 3412013 F51.01 24987 has been treated with seroquel for quite [...] and d/c Senile osteoporosis 1804 0001 M81.0 2364360 continue outpatient infusions of proliacont inue vitamin D replacemen t Hyperlipidemia 59645618 E78.5 68889185 previously treated with statin therapy but this has been stopped per PCP as benefits are likely very limited at this point Moderate p rotein energy malnutrition 712935378 E44.[address] follow while heretrend weightsdie tary supplement s as tolerated Physical deconditioning 6208269962 9102 R53.81 146323 related to advanced age, dementia, recent hospitaliz ation, comorbidit iestherapi es continue - goal is for her to return home with family support upon d/c from SNF - d/c is tentativel y scheduled for 11/28 although suspect she may be ready for transition to a lower level of care prior to this considerin g current functional measures [id number] Molly Nguyen, DO [address] [address] 11/16/2024 12:51:45 11/17/2024 22:17:11 Syncope 622435613 R55 [id number] w/u during her inpatient stay was relatively negative.O f note, she has a history of same and is followed by cardiology related to this, Dr. Fran Cain. Next appointmen t on 12/28.Monit or clinically . Normal pre ssure hydrocephalus 88492354 G91.2 72484 s/p therapeuti c LP with some reported functional improvemen t.Neurolog y questioned whether she would be a good candidate for a MANGLE ROLL OPERATOR shunt and NS was not available at the hospital, so she will f/u as OP with NS to discuss further. Essential hypertension 38683740 I10 22003 Stable. Continue Lisinopril .Continue to trend blood pressures, monitor lytes and renal function, and adjust meds as clinically indicated. Hyperlipidemia 91637637 E78.5 69946894 Previously treated with statin therapy but this has been stopped per PCP as benefits are likely very limited at this point. Alzheimer's disease 2692 9004 G30.9 F02.B0 1504999099 Stable, no concerns with behaviors at present. Continue Aricept.ST to follow.Con tinue supportive measures.P CP to consider tapering off Seroquel and trialling alternativ e medication for insomnia if family in agreement. Mirtazapin e would be a good option. Primary insomnia 6614726 F51.01 97887 SEE ABOVE... Acquired hypothyroidism 622706912 E03.9 99192 Presumed stable. Continue Synthroid. Checking thyroid studies with next lab draw. Senile osteoporosis 1804 0001 M81.0 4213983 Stable. Continue outpatient infusions of Prolia.Con tinue vitamin D replacemen t. Allergic rhinitis 349704 04 J30.89 1853899298 Changed Zyrtec to PRN. Monitor symptoms. Moderate p rotein energy malnutrition 238216297 E44.[address] follow while here.Trend weights.Di etary supplement s as tolerated. Physical deconditioning 5284502762 9102 R53.81 945806 Related to advanced age, dementia, recent hospitaliz ation, comorbidit ies.Contin ue therapies and monitor progress. Goal is for her to return home with family support upon d/c from SNF. [id number] Molly Nguyen, [address] [address] 11/21/2024 11:22:42 11/24/2024 22:29:00 Syncope 653180979 R55 [id number] w/u during her inpatient stay was relatively negative.O f note, she has a history of same and is followed by cardiology related to this, Dr. Fran Cain. Next appointmen t on 12/28.Monit or clinically . Normal pre ssure hydrocephalus 30304518 G91.2 55830 s/p therapeuti c LP with some reported functional improvemen t.Neurolog y questioned whether she would be a good candidate for a MANGLE ROLL OPERATOR shunt and NS was not available at the hospital, so she will f/u as OP with NS to discuss further. Essential hypertension 29491523 I10 90707 Stable. Continue Lisinopril .Continue to trend blood pressures, monitor lytes and renal function, and adjust meds as clinically indicated. Hyperlipidemia 38184756 E78.5 55343784 Previously treated with statin therapy but this has been stopped per PCP as benefits are likely very limited at this point. Alzheimer's disease 2692 9004 G30.9 F02.B0 3960958151 Stable, no concerns with behaviors at present. Continue Aricept.ST to follow.Con tinue supportive measures.P CP to consider tapering off Seroquel and trialling alternativ e medication for insomnia if family in agreement. Mirtazapin e would be a good option. Primary insomnia 7347445 F51.01 30485 SEE ABOVE... Acquired hypothyroidism 436818858 E03.9 14130 Presumed stable. Continue Synthroid. Checking thyroid studies with next lab draw. Senile osteoporosis 1804 0001 M81.0 5817421 Stable. Continue outpatient infusions of Prolia.Con tinue vitamin D replacemen t. Allergic rhinitis 166635 04 J30.89 2736077054 Changed Zyrtec to PRN. Monitor symptoms. Moderate p rotein energy malnutrition 448794296 E44.[address] follow while here.Trend weights.Di etary supplement s as tolerated. Physical deconditioning 4859397590 9102 R53.81 380030 Related to advanced age, dementia, recent hospitaliz ation, comorbidit ies.Contin ue therapies and monitor progress. Goal is for her to return home with family support upon d/c from SNF. [id number] Molly Nguyen, [address] [address] 11/23/2024 09:40:29 11/24/2024 22:29:38 Essential hypertension 26250901 I10 87185 Stable. Continue Lisinopril .Continue to trend blood pressures, monitor lytes and renal function, and adjust meds as clinically indicated. Syncope 570352593 R55 [id number] w/u during her inpatient stay was relatively negative.O f note, she has a history of same and is followed by cardiology related to this, Dr. Fran Cain. Next appointmen t on 12/28.Monit or clinically . Normal pre ssure hydrocephalus 62626894 G91.2 92741 s/p therapeuti c LP with some reported functional improvemen t.Neurolog y questioned whether she would be a good candidate for a MANGLE ROLL OPERATOR shunt and NS was not available at the hospital, so she will f/u as OP with NS to discuss further. Hyperlipidemia 86127071 E78.5 97037267 Previously treated with statin therapy but this has been stopped per PCP as benefits are likely very limited at this point. Alzheimer's disease 2692 9004 G30.9 F02.B0 4523293184 Stable, no concerns with behaviors at present. Continue Aricept.ST to follow.Con tinue supportive measures.P CP to consider tapering off Seroquel and trialling alternativ e medication for insomnia if family in agreement. Mirtazapin e would be a good option. Primary insomnia 5285364 F51.01 31198 SEE ABOVE... Acquired hypothyroidism 397110176 E03.9 12817 Presumed stable. Continue Synthroid. Checking thyroid studies with next lab draw. Senile osteoporosis 1804 0001 M81.0 9534583 Stable. Continue outpatient infusions of Prolia.Con tinue vitamin D replacemen t. Allergic rhinitis 923143 04 J30.89 6347523373 Changed Zyrtec to PRN. Monitor symptoms. Moderate p rotein energy malnutrition 862789808 E44.[address] follow while here.Trend weights.Di etary supplement s as tolerated. Physical deconditioning 3743342434 9102 R53.81 580489 Related to advanced age, dementia, recent hospitaliz ation, comorbidit ies.Contin ue therapies and monitor progress. Goal is for her to return home with family support upon d/c from SNF. [id number] Molly Nguyen, [place] [address] [place] [address] 11/27/2024 09:39:13 12/03/2024 11:38:44 Essential hypertension 83665894 I10 96105 Stable. Continue Lisinopril .Continue to trend blood pressures, monitor lytes and renal function, and adjust meds as clinically indicated. Syncope 927530791 R55 [id number] w/u during her inpatient stay was relatively negative.O f note, she has a history of same and is followed by cardiology related to this, Dr. Fran Cain. Next appointmen t on 12/28.Monit or clinically . Normal pre ssure hydrocephalus 52240108 G91.2 04456 s/p therapeuti c LP with some reported functional improvemen t.Neurolog y questioned whether she would be a good candidate for a MANGLE ROLL OPERATOR shunt and NS was not available at the hospital, so she will f/u as OP with NS to discuss further. Hyperlipidemia 84641906 E78.5 69817055 Previously treated with statin therapy but this has been stopped per PCP as benefits are likely very limited at this point. Alzheimer's disease 2692 9004 G30.9 F02.B0 9116352096 Stable, no concerns with behaviors at present. Continue Aricept.ST has followed.C ontinue supportive measures.P CP to consider tapering off Seroquel and trialling alternativ e medication for insomnia if family in agreement. Mirtazapin e would be a good option. Primary insomnia 3280078 F51.01 31698 SEE ABOVE... Acquired hypothyroidism 679001809 E03.9 63619 Stable. 11/15 TSH 0.510, Free T4 0.96.Marino nue Synthroid. Senile osteoporosis 1804 0001 M81.0 8734358 Stable. Continue outpatient infusions of Prolia.Con tinue vitamin D replacemen t. Allergic rhinitis 320354 04 J30.89 6333038727 Changed Zyrtec to PRN. Monitor symptoms. Moderate p rotein energy malnutrition 566956203 E44.[address] followed here.Trend weights.Di etary supplement s as tolerated. Health Concerns Section Related Observation LastModified by Organization Detai ls LastModified Time None Recorded Concern Status LastModified by Organization Details LastModified Time None Recorded Payers Encounter Date Sequence Insurance Name Policy Number Policy Velazco Covered Member ID Velazco Member ID Guarantor Name 11/27/2024 2 FOR LIFE ( - MEDICARE SUPPLEMENT) Charlene Fontana [id number] Charlene Fontana 11/27/2024 1 [place] Cahrlene Fontana [id number] Charlene Fontana Notes Date Note Type Note Provider Name and Address Organization Details Recorded Time 5 text/html ROS as noted in the HPI 89 Y/O female with a history of dementia, HTN, hypothyroidism, allergic rhinitis, osteoporosis and HLD admitted to [facility] for post acute rehab subsequent to an inpatient stay at [facility] 11/03-11/07/2024 related to syncope. Per discharge [...] [place] Vazquez is daughter Teresa brice in [place] ---11/08/24Charlene is sitting in her bedside chair this afternoon. She is not a good historian - not clear on details of her hospitalization, medical history or medications. She feels well, a bit weak but without specific complaints or concerns. She lives alone in a home in [place] - does have a caregiver a few [...] pivot transfers: CGA-SBA with cueing for hand placement.---11/13/24Hanytt meng is sitting up in her bedside chair [...] further assess whether she would be a MANGLE ROLL OPERATOR shunt candidate. She tells me that [...] keep AD on the floor. 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 She will discharge home tomorrow with [facility] -- is without concerns regarding her discharge plans and thinks she will do well. VSS. Staff is without concerns at this time. Jeannette Plaza, [address] [address] [place], [address], [place] [facility] 11/27/2024 13:00:04 OBGyn Episode No OBEpisode recorded.
--- OUTSIDE RECORDS SUMMARY | 2025-02-07 18:10 | XMS_ITS | Continuity of Care Document ---
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 More than 50% of that time was spent in discussing the expected course of the disease, discussing prognosis, coordinating care and counseling of the patient/family. Not available 11/23/2024 16:17:32 Reason for Referral None Reported. Results Created Date Observation Date Name Description Value Unit Range Abnormal Flag Note LastModifiedBy Organization Detail LastModifiedTime Result Notes None recorded. Medical Equipment None Reported. Allergies Allergen ID Allergen Name Allergen Category Reaction Reaction Severity Criticality Documentation Date Start Date Code Code System Note Provider Name and Address Organization Details Recorded Time 46415 wasp venoms environme nt Not available Not available Not available 11/08/2024 56354 RxNorm Herbert rodriguez [place] Critique^It Counts Include [facility] B[facility] At [facility] 02:15:53 Medications Name Sig Start Date [...] [degF] 18 /min 98 % 18.8 kg/m2 89116.4 4 g 93/60 mm[Hg] Jeannette Plaza, [place] [address] [place], [address], [facility] 15:05:37 Social History Question Answer Notes LastModified by Organizat ion Details LastModified Time Tobacco Smoking Status Never Smoker [place] Fu null, [place] - [facility] 11/13/2024 01:12:09 What Is Your [...] ICD10 Code Diagnosis IMO Codes Diagnosis Note [id number] Molly Nguyen, DO [place] [address] [place] [address] 11/08/2024 23:10:20 11/17/2024 22:17:51 Alzheimer's disease 78775830 G30.9 F02.B0 6787853708 continue ariceptST to followsupp ortive measures Normal pre ssure hydrocephalus 80908793 G91.2 95040 s/p therapeuti c LP with some reported functional improvemen tf/u with NS as outpatient to further discuss shunt placement Essential hypertension 20481118 I10 96012 continue lisinopril trend pressures and adjust meds as clinically indicated Acquired hypothyroidism 871739251 E03.9 27410 presumed stable - continue synthroidw ill check thyroid studies with next lab draw Allergic rhinitis 652538 04 J30.89 1029489657 trial of zyrtec prn Primary insomnia 2465941 F51.01 50106 has been treated with seroquel for quite [...] and d/c Senile osteoporosis 1804 0001 M81.0 1659089 continue outpatient infusions of proliacont inue vitamin D replacemen t Hyperlipidemia 13621224 E78.5 01758748 previously treated with statin therapy but this has been stopped per PCP as benefits are likely very limited at this point Moderate p rotein energy malnutrition 993128706 E44.[address] follow while heretrend weightsdie tary supplement s as tolerated Syncope 905290428 R55 [id number] w/u during her inpatient stay was relatively negativeof note, she has a history of same and is followed by cardiology related to this, Dr. Fran Dao appointmen t is scheduled for onito r clinically Physical deconditioning 9945969268 9102 R53.81 760858 related to advanced age, dementia, recent hospitaliz ation, comorbidit iestherapi es have been initiated - goal is for her to return home with family support upon d/c from [facility] [id number] Molly Wendy, DO [facility] [address] [place] [address] 11/09/2024 10:48:37 11/17/2024 22:16:36 Syncope 645577937 R55 [id number] w/u during her inpatient stay was relatively negative.O f note, she has a history of same and is followed by cardiology related to this, Dr. Fran Cain. Next appointmen t on 12/28.Monit or clinically . Alzheimer's disease 2692 9004 G30.9 F02.B0 1386789209 Stable, no concerns with behaviors at present. Continue Aricept.ST to follow.Con tinue supportive measures.P CP to consider tapering off Seroquel and trialling alternativ e medication for insomnia if family in agreement. Mirtazapin e would be a good option. Normal pre ssure hydrocephalus 59925581 G91.2 14667 s/p therapeuti c LP with some reported functional improvemen t.F/U with NS as outpatient to further discuss shunt placement. Essential hypertension 18160339 I10 50832 Stable. Continue Lisinopril .Continue to trend blood pressures, monitor lytes and renal function, and adjust meds as clinically indicated. Acquired hypothyroidism 319393696 E03.9 42774 Presumed stable. Continue Synthroid. Checking thyroid studies with next lab draw. Allergic rhinitis 696954 04 J30.89 9828048118 Changed Zyrtec to PRN. Monitor symptoms. Primary insomnia 3334626 F51.01 80352 SEE ABOVE... Senile osteoporosis 1804 0001 M81.0 3206955 Stable. Continue outpatient infusions of Prolia.Con tinue vitamin D replacemen t. Hyperlipidemia 21280884 E78.5 29548463 Previously treated with statin therapy but this has been stopped per PCP as benefits are likely very limited at this point. Moderate p rotein energy malnutrition 552595849 E44.[address] follow while here.Trend weights.Di etary supplement s as tolerated. Physical deconditioning 9174358795 9102 R53.81 407593 Related to advanced age, dementia, recent hospitaliz ation, comorbidit ies.Contin ue therapies and monitor progress. Goal is for her to return home with family support upon d/c from SNF. [id number] Molly Nguyen, DO [facility] [address] [place] [address] 11/13/2024 21:24:30 11/17/2024 22:18:35 Syncope 516289930 R55 [id number] w/u during her inpatient stay was relatively negativeof note, she has a history of same and is followed by cardiology related to this, Dr. Fran Dao appointmen t is scheduled for onito r clinically Alzheimer's disease 2692 9004 G30.9 F02.B0 7896164256 continue ariceptST followingc ontinue supportive measures Normal pre ssure hydrocephalus 71622959 G91.2 00339 s/p therapeuti c LP with some reported functional improvemen tf/u with NS as outpatient to further discuss shunt placement Essential hypertension 78378194 I10 33967 continue lisinopril trend pressures and adjust meds as clinically indicated Acquired hypothyroidism 500205427 E03.9 96046 presumed stable - continue synthroidw ill check thyroid studies with next lab draw Allergic rhinitis 642207 04 J30.89 1473548027 continue zyrtec prn - no reported increase in symptoms since changing to prn Primary insomnia 0327667 F51.01 18652 has been treated with seroquel for quite [...] and d/c Senile osteoporosis 1804 0001 M81.0 9915929 continue outpatient infusions of proliacont inue vitamin D replacemen t Hyperlipidemia 41425262 E78.5 92525384 previously treated with statin therapy but this has been stopped per PCP as benefits are likely very limited at this point Moderate p rotein energy malnutrition 859878456 E44.[address] follow while heretrend weightsdie tary supplement s as tolerated Physical deconditioning 6845499147 9102 R53.81 436053 related to advanced age, dementia, recent hospitaliz ation, comorbidit iestherapi es continue - goal is for her to return home with family support upon d/c from SNF - d/c is tentativel y scheduled for 11/28 although suspect she may be ready for transition to a lower level of care prior to this raj taveras current functional measures [id number] Molly Nguyen, [address] [address] 11/16/2024 12:51:45 11/17/2024 22:17:11 Syncope 080776145 R55 780512221 w/u during her inpatient stay was relatively negative.O f note, she has a history of same and is followed by cardiology related to this, Dr. Fran Cain. Next appointmen t on 12/28.Monit or clinically . Normal pre ssure hydrocephalus 54221678 G91.2 74657 s/p therapeuti c LP with some reported functional improvemen t.Neurolog y questioned whether she would be a good candidate for a TOURING PRODUCTION MANAGER shunt and NS was not available at the hospital, so she will f/u as OP with NS to discuss further. Essential hypertension 11882558 I10 92943 Stable. Continue Lisinopril .Continue to trend blood pressures, monitor lytes and renal function, and adjust meds as clinically indicated. Hyperlipidemia 75515299 E78.5 98377082 Previously treated with statin therapy but this has been stopped per PCP as benefits are likely very limited at this point. Alzheimer's disease 2692 9004 G30.9 F02.B0 4014189624 Stable, no concerns with behaviors at present. Continue Aricept.ST to follow.Con tinue supportive measures.P CP to consider tapering off Seroquel and trialling alternativ e medication for insomnia if family in agreement. Mirtazapin e would be a good option. Primary insomnia 9489979 F51.01 32741 SEE ABOVE... Acquired hypothyroidism 991632001 E03.9 12434 Presumed stable. Continue Synthroid. Checking thyroid studies with next lab draw. Senile osteoporosis 1804 0001 M81.0 5825795 Stable. Continue outpatient infusions of Prolia.Con tinue vitamin D replacemen t. Allergic rhinitis 491404 04 J30.89 8149915346 Changed Zyrtec to PRN. Monitor symptoms. Moderate p rotein energy malnutrition 492973781 E44.[address] follow while here.Trend weights.Di etary supplement s as tolerated. Physical deconditioning 3199025132 9102 R53.81 434488 Related to advanced age, dementia, recent hospitaliz ation, comorbidit ies.Contin ue therapies and monitor progress. Goal is for her to return home with family support upon d/c from SNF. [id number] Molly Nguyen, DO [address] [address] 11/21/2024 11:22:42 11/24/2024 22:29:00 Syncope 855685010 R55 130831296 w/u during her inpatient stay was relatively negative.O f note, she has a history of same and is followed by cardiology related to this, Dr. Fran Cain. Next appointmen t on 12/28.Monit or clinically . Normal pre ssure hydrocephalus 41874274 G91.2 37188 s/p therapeuti c LP with some reported functional improvemen t.Neurolog y questioned whether she would be a good candidate for a TOURING PRODUCTION MANAGER shunt and NS was not available at the hospital, so she will f/u as OP with NS to discuss further. Essential hypertension 44304516 I10 27618 Stable. Continue Lisinopril .Continue to trend blood pressures, monitor lytes and renal function, and adjust meds as clinically indicated. Hyperlipidemia 75468491 E78.5 30104069 Previously treated with statin therapy but this has been stopped per PCP as benefits are likely very limited at this point. Alzheimer's disease 2692 9004 G30.9 F02.B0 7305205726 Stable, no concerns with behaviors at present. Continue Aricept.ST to follow.Con tinue supportive measures.P CP to consider tapering off Seroquel and trialling alternativ e medication for insomnia if family in agreement. Mirtazapin e would be a good option. Primary insomnia 9166456 F51.01 12759 SEE ABOVE... Acquired hypothyroidism 616127440 E03.9 59539 Presumed stable. Continue Synthroid. Checking thyroid studies with next lab draw. Senile osteoporosis 1804 0001 M81.0 0446788 Stable. Continue outpatient infusions of Prolia.Con tinue vitamin D replacemen t. Allergic rhinitis 052342 04 J30.89 0422242649 Changed Zyrtec to PRN. Monitor symptoms. Moderate p rotein energy malnutrition 255660272 E44.[address] follow while here.Trend weights.Di etary supplement s as tolerated. Physical deconditioning 8637869265 9102 R53.81 792335 Related to advanced age, dementia, recent hospitaliz ation, comorbidit ies.Contin ue therapies and monitor progress. Goal is for her to return home with family support upon d/c from SNF. [id number] Molly Nguyen DO [address] [address] 11/23/2024 09:40:29 11/24/2024 22:29:38 Essential hypertension 83245627 I10 86559 Stable. Continue Lisinopril .Continue to trend blood pressures, monitor lytes and renal function, and adjust meds as clinically indicated. Syncope 024326816 R55 [id number] w/u during her inpatient stay was relatively negative.O f note, she has a history of same and is followed by cardiology related to this, Dr. Fran Cain. Next appointmen t on 12/28.Monit or clinically . Normal pre ssure hydrocephalus 88173756 G91.2 48037 s/p therapeuti c LP with some reported functional improvemen t.Neurolog y questioned whether she would be a good candidate for a TOURING PRODUCTION MANAGER shunt and NS was not available at the hospital, so she will f/u as OP with NS to discuss further. Hyperlipidemia 61018328 E78.5 55039668 Previously treated with statin therapy but this has been stopped per PCP as benefits are likely very limited at this point. Alzheimer's disease 2692 9004 G30.9 F02.B0 8114610466 Stable, no concerns with behaviors at present. Continue Aricept.ST to follow.Con tinue supportive measures.P CP to consider tapering off Seroquel and trialling alternativ e medication for insomnia if family in agreement. Mirtazapin e would be a good option. Primary insomnia 0517453 F51.01 52170 SEE ABOVE... Acquired hypothyroidism 263386202 E03.9 34692 Presumed stable. Continue Synthroid. Checking thyroid studies with next lab draw. Senile osteoporosis 1804 0001 M81.0 6813964 Stable. Continue outpatient infusions of Prolia.Con tinue vitamin D replacemen t. Allergic rhinitis 927427 04 J30.89 5585768901 Changed Zyrtec to PRN. Monitor symptoms. Moderate p rotein energy malnutrition 856873644 E44.[address] follow while here.Trend weights.Di etary supplement s as tolerated. Physical deconditioning 7118462168 9102 R53.81 310897 Related to advanced age, dementia, recent hospitaliz [...] Member ID Velazco Member ID Guarantor Name 11/23/2024 2 FOR LIFE ( - MEDICARE SUPPLEMENT) Charlene Fontana [id number] Charlene Fontana 11/23/2024 1 MEDICARE-PR (MEDICARE) Charlene Fontana [id number] Charlene Fontana Notes Date Note Type Note Provider Name and Address Organization Details Recorded Time 11/23/2024 text/html F/U syncope, questionable normal pressure hydrocephalus s/p LP, deconditioning/weak ness, and chronic medical conditions.---Charlene is sitting in her bedside chair this afternoon. She is not a good historian - not clear on details of her hospitalization, medical history or medications. She feels well, a bit weak but without specific complaints or concerns. She lives alone in a home in [place] - does have a caregiver a few [...] further assess whether she would be a TOURING PRODUCTION MANAGER shunt candidate. She tells me that [...] with a FWW, requiring SBA. Cueing for navigation.---11/23Charlene is doing well today, seated in her recliner, feels her therapy continues to go well, is without concerns or pain to report today. VSS. Staff is without concerns today. Per therapy notes = Conducted gait training with FWW 200' SBA cues for direction and to keep AD on the floor. Tends to moss picker and carry AD. Jeannette Plaza, [address] [address] [place], [address], [facility] 11/23/2024 16:17:42 OBGyn Episode No OBEpisode recorded.
--- NOTE | 2025-02-07 19:15 | PC.NURSE ---
Report given to [facility] who is transporting pt. back to [facility]. All questions answered by this RN. Family at bedside at time pt. left [facility].
== END 2025-02-07 19:15 ==
PROVIDERS: Registered Nurse; Student in an Organized Health Care Education/Training Program; Emergency Provider Emergency Medicine; PCP Internal Medicine
DX: N39.0 Urinary tract infection, site not specified (principal); G91.2 (Idiopathic) normal pressure hydrocephalus; Z66 Do not resuscitate; Z86.73 Personal history of transient ischemic attack (TIA), and cerebral infarction without residual deficits; R94.31 Abnormal electrocardiogram [ECG] [EKG]
CPT/HCPCS: 36415; 70450; 80053; 81001; 82550; 83605; 83735; 85025; 85610; 85730; 87077; 87086; 87186; 93005; 96365; 99284; J0696